=== PATIENT | male | born 1950 | race Caucasian/White ===

== ENCOUNTER 2019-01-18 06:49 | Observation (INO) | payer OTHER, MEDICARE ==
[2019-01-18 07:27] LABS: Absolute Lymphocytes (CBC) 1.9 K/uL (0.7-4.9); Basophils % 0.6 % (0-1.3); Hematocrit 42.1 % (39.6-49.0); Lymphocytes % 20.7 % (15.3-44.8); MPV 8.5 fL (7.6-11.3); RBC Red Blood Cell Count 4.67 M/uL (4.33-5.43)
[2019-01-18 07:28] LABS: Protime INR 1.02
[2019-01-18 07:42] LABS: ALT/SGPT 22 U/L (12-78); AST/SGOT 13 U/L (15-37); Albumin 3.7 g/dL (3.4-5.0); Alkaline Phosphatase 59 U/L (45-117); BUN Blood Urea Nitrogen 25 mg/dL (7-18); Bicarbonate 26 mmol/L (21-32); Bilirubin Direct 0.2 mg/dL (0-0.2); Bilirubin Total 0.9 mg/dL (0.2-1.0); Glucose Level 243 mg/dL (74-106); Magnesium 1.7 mg/dL (1.8-2.4); NT PRO-BNP 89 pg/mL (<125); Potassium 3.2 mmol/L (3.5-5.1); Protein, Total 6.9 g/dL (6.4-8.2); Sodium Level 139 mmol/L (136-145); Troponin (Emerg Dept Use Only) < 0.02 ng/mL (0.0-0.045)
[2019-01-18] MEDS ORDERED: POTASSIUM CL SA 10 MEQ TAB PO ONE (08:00)
--- NOTE | 2019-01-18 08:03 | ER ---
Nurse's Notes [facility] Name: Isiah Lai Age: 68 yrs Sex: Male : 1950 Arrival Date: 01/18/2019 Time: 06:50 Bed 7 Private MD: Diagnosis: Chest pain, unspecified Presentation: 01/18 06:51 Presenting complaint: Patient states: midsternal CP since approx [id number] this am. aa1 Reports throbbing pain 06/11. Denies any other symptoms. Transition of care: patient was not received from another setting of care. Onset of symptoms was January 18, 2019. Risk Assessment: Do you want to hurt yourself or someone else? Patient reports no desire to harm self or others. Initial Sepsis Screen: Does the patient meet any 2 criteria? No. Patient's initial sepsis screen is negative. Does the patient have a suspected source of infection? No. Patient's initial sepsis screen is negative. Care prior to arrival: IV initiated. 18 GA, in the right antecubital area, Glucose check: 273. 06:51 Method Of Arrival: EMS: [facility] aa1 06:51 Acuity: DENISE 3 aa1 Triage Assessment: 06:54 General: Appears in no apparent distress. comfortable, Behavior is calm, cooperative, aa1 appropriate for age. Historical: - Allergies: 06:54 No Known Allergies; aa1 - PMHx: 06:54 Diabetes - NIDDM; CVA; Hypertension; Hypothyroidism; aa1 - PSHx: 06:54 skin cancer removed; aa1 - Immunization history:: Flu vaccine is up to date. - Social history:: Smoking status: Patient/guardian denies using tobacco. - Ebola Screening: : No symptoms or risks identified at this time. Screenin:19 Abuse screen: Denies threats or abuse. Denies injuries from another. Nutritional sg screening: No deficits noted. Tuberculosis screening: No symptoms or risk factors identified. Never had TB. Fall Risk None identified. Assessment: 07:19 Reassessment: Patient appears in no apparent distress at this time. Patient and/or sg family updated on plan of care and expected duration. Pain level reassessed. Patient is alert, oriented x 3, equal unlabored respirations, skin warm/dry/pink. 07:25 General: Appears in no apparent distress. well groomed, well developed, well nourished, sg Behavior is calm, cooperative, appropriate for age, quiet. Pain: Complains of pain in chest Quality of pain is described as aching. Neuro: Level of Consciousness is awake, alert, obeys commands, Oriented to person, place, time, situation, Animal Impersonator are equal bilaterally Moves all extremities. Full function Gait is steady, Speech is normal, Facial symmetry appears normal, Pupils are PERRLA. Cardiovascular: Patient's skin is warm and dry. Chest pain is described as mild, quality is pressure, is located in anterior chest wall. Respiratory: Airway is patent Respiratory effort is even, unlabored, Respiratory pattern is regular, symmetrical. GI: Abdomen is round non-distended, Reports tolerance of fluids, tolerance of food. : No signs and/or symptoms were reported regarding the genitourinary system. EENT: No signs and/or symptoms were reported regarding the EENT system. Derm: Skin is pink, warm \T\ dry. Musculoskeletal: Circulation, motion, and sensation intact. Range of motion: intact in all extremities, Swelling absent. 08:25 Reassessment: Patient appears in no apparent distress at this time. Patient and/or sg family updated on plan of care and expected duration. Pain level reassessed. Patient is alert, oriented x 3, equal unlabored respirations, skin warm/dry/pink. Patient denies pain at this time. 09:30 Reassessment: Patient appears in no apparent distress at this time. Patient and/or sg family updated on plan of care and expected duration. Pain level reassessed. Patient is alert, oriented x 3, equal unlabored respirations, skin warm/dry/pink. Patient denies pain at this time. Patient states feeling better. 10:29 Reassessment: Patient appears in no apparent distress at this time. pt HR noted to be sg 42 on the bedside monitor, pt denies any symptoms or pain at this time, Lavelle DEE notified, pt continues to wait for a bed for admission to hospital at this time, will continue to monitor. 10:29 Reassessment: Patient appears in no apparent distress at this time. Patient and/or sg family updated on plan of care and expected duration. Pain level reassessed. Patient is alert, oriented x 3, equal unlabored respirations, skin warm/dry/pink. Patient denies pain at this time. Patient states feeling better. Vital Signs: 06:54 BP 127 / 80; Pulse 68; Resp 18; Temp 97.5; Pulse Ox 98% on R/A; Weight 83.91 kg; Height aa1 6 ft. 2 in. (187.96 cm); Pain 2/10; 08:11 BP 121 / 77; Pulse 63; Resp 20; Pulse Ox 98% ; sv 09:06 BP 124 / 82; Pulse 61; Resp 17; Temp 97.6; Pulse Ox 99% on R/A; sg 12:21 BP 122 / 80; Pulse 60; Resp 16; Pulse Ox 100% on R/A; Pain 2/10; sg 06:54 Body Mass Index 23.75 (83.91 kg, 187.96 cm) aa1 ED Course: 06:50 Patient arrived in ED. ds1 06:53 Triage completed. aa1 06:54 Arm band placed on right wrist. aa1 06:58 Patient has correct armband on for positive identification. environmental monitoring technician on. Pulse lp1 ox on. NIBP on. 07:10 Jose Machado, RN is Primary Nurse. sg 07:20 No provider procedures requiring assistance completed. Initial lab(s) drawn, by me, sg sent to lab. Maintain EMS IV. Dressing intact. Good blood return noted. Site clean \T\ dry. Gauge \T\ site: 18 gauge. Patient maintains SpO2 saturation greater than 95% on room air. 07:23 Griffin Gomez PA is [facility]. jr8 07:23 Reza Scales MD is Attending Physician. jr8 07:27 XRAY Chest (1 view) In Process Unspecified. EDMS 08:01 Rubén Huynh MD is Hospitalizing Provider. jr8 Administered Medications: 08:02 Drug: Potassium Chloride 40 mEq Route: PO; sg 10:30 Follow up: Response: No adverse reaction sg Outcome: 08:02 Decision to Hospitalize by Provider. jr8 12:42 Patient left the ED. sv Signatures: Dispatcher [employer] EDMS Rhonda Mccormack RN RN Jose Machado RN RN sg Autenrieth, Alissa, RN RN aa Carolynn Grimm ds1 Annie Case RN RN [facility] Griffin Gomez PA PA jr8
--- NOTE | 2019-01-18 08:03 | EDPHYS ---
Physician Documentation [facility] Name: Isiah Lai Age: 68 yrs Sex: Male : 1950 Arrival Date: 01/18/2019 Time: 06:50 Bed 7 Private MD: ED Physician Reza Scales HPI: 01/18 07:43 This 68 yrs old Male presents to ER via EMS with complaints of Chest Pain. jr8 07:43 The patient or guardian reports chest pain that is located primarily in the substernal jr8 area. Onset: acutely, this morning, today. The pain does not radiate. Associated signs and symptoms: Pertinent positives: diaphoresis. The chest pain is described as sharp. Duration: The patient or guardian reports multiple episodes, that are intermittent. Modifying factors: The symptoms are alleviated by nothing. the symptoms are aggravated by nothing. Severity of pain: At its worst the pain was moderate in the emergency department the pain has improved moderately. The patient has not experienced similar symptoms in the past. The patient has not recently seen a physician. Historical: - Allergies: 06:54 No Known Allergies; aa1 - PMHx: 06:54 Diabetes - NIDDM; CVA; Hypertension; Hypothyroidism; aa1 - PSHx: 06:54 skin cancer removed; aa1 - Immunization history:: Flu vaccine is up to date. - Social history:: Smoking status: Patient/guardian denies using tobacco. - Ebola Screening: : No symptoms or risks identified at this time. ROS: 07:43 Eyes: Negative for injury, pain, redness, and discharge, ENT: Negative for injury, jr8 pain, and discharge, Neck: Negative for injury, pain, and swelling, Respiratory: Negative for shortness of breath, cough, wheezing, and pleuritic chest pain, Abdomen/GI: Negative for abdominal pain, nausea, vomiting, diarrhea, and constipation, Back: Negative for injury and pain, MS/Extremity: Negative for injury and deformity, Skin: Negative for injury, rash, and discoloration, Neuro: Negative for headache, weakness, numbness, tingling, and seizure. 07:43 Cardiovascular: Positive for chest pain, Negative for edema, orthopnea, palpitations, paroxysmal nocturnal dyspnea. Exam: 07:43 Eyes: Pupils equal round and reactive to light, extra-ocular motions intact. Lids and jr8 lashes normal. Conjunctiva and sclera are non-icteric and not injected. Cornea within normal limits. Periorbital areas with no swelling, redness, or edema. ENT: Nares patent. No nasal discharge, no septal abnormalities noted. Tympanic membranes are normal and external auditory canals are clear. Oropharynx with no redness, swelling, or masses, exudates, or evidence of obstruction, uvula midline. Mucous membranes moist. Neck: Trachea midline, no thyromegaly or masses palpated, and no cervical lymphadenopathy. Supple, full range of motion without nuchal rigidity, or vertebral point tenderness. No Meningismus. Chest/axilla: Normal chest wall appearance and motion. Nontender with no deformity. No lesions are appreciated. Cardiovascular: Regular rate and rhythm with a normal S1 and S2. No gallops, murmurs, or rubs. Normal PMI, no JVD. No pulse deficits. Respiratory: Lungs have equal breath sounds bilaterally, clear to auscultation and percussion. No rales, rhonchi or wheezes noted. No increased work of breathing, no retractions or nasal flaring. Abdomen/GI: Soft, non-tender, with normal bowel sounds. No distension or tympany. No guarding or rebound. No evidence of tenderness throughout. Back: No spinal tenderness. No costovertebral tenderness. Full range of motion. Skin: Warm, dry with normal turgor. Normal color with no rashes, no lesions, and no evidence of cellulitis. MS/ Extremity: Pulses equal, no cyanosis. Neurovascular intact. Full, normal range of motion. Neuro: Awake and alert, GCS 15, oriented to person, place, time, and situation. Cranial nerves II-XII grossly intact. Motor strength 5/5 in all extremities. Sensory grossly intact. Cerebellar exam normal. Normal gait. 07:58 ECG was reviewed by the Attending Physician. [facility] Vital Signs: 06:54 BP 127 / 80; Pulse 68; Resp 18; Temp 97.5; Pulse Ox 98% on R/A; Weight 83.91 kg; Height aa1 6 ft. 2 in. (187.96 cm); Pain 2/10; 08:11 BP 121 / 77; Pulse 63; Resp 20; Pulse Ox 98% ; sv 09:06 BP 124 / 82; Pulse 61; Resp 17; Temp 97.6; Pulse Ox 99% on R/A; sg 12:21 BP 122 / 80; Pulse 60; Resp 16; Pulse Ox 100% on R/A; Pain 2/10; sg 06:54 Body Mass Index 23.75 (83.91 kg, 187.96 cm) aa1 MDM: 07:23 Patient medically screened. jr8 07:58 The patient was not given aspirin in the Emergency Department. Patient reports taking jr8 aspirin within the past 24 hours. Data reviewed: vital signs, nurses notes, lab test result(s), EKG, radiologic studies, plain films. Data interpreted: Pulse oximetry: on room air is 98 %. Interpretation: normal. Counseling: I had a detailed discussion with the patient and/or guardian regarding: the historical points, exam findings, and any diagnostic results supporting the discharge/admit diagnosis, lab results, radiology results, the need for further work-up and treatment in the hospital. 01/18 07:03 Order name: Basic Metabolic Panel; Complete Time: 07:44 lp01/18 07:03 Order name: CBC with Diff; Complete Time: 07:55 lp01/18 07:03 Order name: LFT's; Complete Time: 07:44 01/18 07:03 Order name: Magnesium; Complete Time: 07:44 01/18 07:03 Order name: NT PRO-BNP; Complete Time: 07:44 01/18 07:03 Order name: PT-INR; Complete Time: 07:55 01/18 07:03 Order name: Troponin (emerg Dept Use Only); Complete Time: 07:44 lp01/18 07:03 Order name: XRAY Chest (1 view); Complete Time: 08:31 lp01/18 07:03 Order name: EKG; Complete Time: 07:04 lp01/18 07:03 Order name: Cardiac monitoring; Complete Time: 07:19 01/18 07:03 Order name: EKG - Nurse/Tech; Complete Time: 07:19 01/18 07:03 Order name: IV Saline Lock; Complete Time: 07:19 lp01/18 07:03 Order name: Labs collected and sent; Complete Time: 07:19 01/18 07:03 Order name: O2 Per Protocol; Complete Time: 07:19 01/18 07:03 Order name: O2 Sat Monitoring; Complete Time: : lp1 EC:58 Rate is 66 beats/min. Rhythm is regular, Normal Sinus Rhythm. QRS [place] is Normal. [place] jr8 interval is normal at 182 msec. QRS interval is normal at 98 msec. QT interval is normal at 427 msec. Q waves are Present in leads II, III, aVF, V1, V2, V3. T waves are Normal. No ST changes noted. Clinical impression: NSR w/ Non-specific ST/T Changes and No evidence of ischemia. Interpreted by me. Reviewed by me. Administered Medications: 08:02 Drug: Potassium Chloride 40 mEq Route: PO; sg 10:30 Follow up: Response: No adverse reaction sg Disposition: 01/18/19 08:02 Hospitalization ordered by Rubén Huynh for Observation. Preliminary diagnosis is Chest pain, unspecified. - Bed requested for Telemetry/MedSurg (observation). - Status is Observation. sv - Condition is Stable. - Problem is new. - Symptoms have improved. UTI on Admission? No Signatures: Dispatcher [employer] EDMS Melissa Cabral Stephanie, RN RN sv Jose Machado RN RN sg Karo Winn RN RN aa1 Annie Case RN RN lp1 Griffin Gomez PA PA jr8 Corrections: (The following items were deleted from the chart) 10:50 08:02 Hospitalization Ordered by Rubén Huynh MD for Observation. Preliminary diagnosis bd is Chest pain, unspecified. Bed requested for Telemetry/MedSurg (observation). Status is Observation. Condition is Stable. Problem is new. Symptoms have improved. UTI on Admission? No. jr8 10:56 10:50 01/18/2019 08:02 Hospitalization Ordered by Rubén Huynh MD for Observation. bd Preliminary diagnosis is Chest pain, unspecified. Bed requested for Telemetry/MedSurg (observation). Status is Observation. Condition is Stable. Problem is new. Symptoms have improved. UTI on Admission? No. bd 12:42 10:56 01/18/2019 08:02 Hospitalization Ordered by Rubén Huynh MD for Observation. sv Preliminary diagnosis is Chest pain, unspecified. Bed requested for Telemetry/MedSurg (observation). Status is Observation. Condition is Stable. Problem is new. Symptoms have improved. UTI on Admission? No. bd
--- NOTE | 2019-01-18 08:18 | RAD REPORT ---
EXAM DESCRIPTION: RAD - Chest Single View - 01/18/2019 7:26 am CLINICAL HISTORY: CHEST PAIN Chest pain. COMPARISON: No comparisons FINDINGS: Portable technique limits examination quality. The lungs are grossly clear. The heart is normal in size. No displaced fractures. IMPRESSION: No acute intrathoracic process suspected.
[2019-01-18] MEDS: INSULIN -REGULAR HUMAN 50 UNIT/0.5 ML ML SQ SCH ×3 (12:31→21:04)
[2019-01-18] MEDS ORDERED: METOPROLOL TAR 25 MG TAB PO SCH (12:31)
[2019-01-18] MEDS ORDERED: MORPHINE 2 MG/ML SYR IV PRN (12:31)
[2019-01-18] MEDS ORDERED: ACETAMINOPHEN 500 MG TAB PO PRN (12:31)
[2019-01-18] MEDS ORDERED: GLUCAGON 1 MG/VIAL IM PRN (12:31)
[2019-01-18] MEDS ORDERED: D50W 25 GM/50 ML SYRINGE IV PRN (12:31)
[2019-01-18] MEDS ORDERED: NITROGLYCERIN 0.4 MG/TAB SL PRN (12:31)
[2019-01-18 13:05] VITALS: BMI 23.6
[2019-01-18] MEDS: ASPIRIN EC 81 MG TAB PO SCH (13:24)
[2019-01-18] MEDS: ENOXAPARIN 40 MG/0.4 ML SQ SCH (13:25)
[2019-01-18] MEDS: LISINOPRIL 10 MG TAB PO SCH (13:25)
[2019-01-18 15:03] VITALS: O2SAT 98
[2019-01-18] MEDS ORDERED: HOME MED 1 EA UNK (Simvastatin [Simvastatin] 10 MG) PO SCH (21:00)
[2019-01-18] MEDS ORDERED: HOME MED 1 EA UNK (Metoprolol Tartrate [Lopressor] 100 MG) PO SCH (21:00)
[2019-01-18] MEDS ORDERED: ATORVASTATIN 10 MG TAB PO SCH (21:00)
[2019-01-18] MEDS: METOPROLOL TAR 50 MG TAB PO SCH (21:03)
--- NOTE | 2019-01-18 21:58 | HP ---
Date of Admission: 01/18/2019 Chief Complaint: Chest pain. [employer] Supervisor: Dr. Mcdaniel, Cardiology. Code Status: Full. History Of Present Illness: Patient is a 68-year-old male with past medical history of diabetes, hyp ertension, history of CVA recently with no residual weakness, who was in his usual state of health un til the night prior to admission when the patient had sudden onset of chest pain which was substernal , moderate intensity, constant, nonradiating, associated with nausea and some diaphoresis, but no vom iting or shortness of breath. No palpitations. Patient did take 2 aspirins, which helped alleviate his pain. The pain lasted approximately 3-4 hours and was initiated without any exertion. Patient w as brought in to the ER for further evaluation. His daughter is a nurse and recommended that he go t o the ER. In the ER his initial workup has been negative. Creatinine level was elevated at 1.57, wh ich seems to be about his baseline and had a low potassium level. Chest x-ray was clear. Patient wa s then referred for admission. When seen in the ER, he was awake, alert, oriented x3, in some mild d istress. Past Medical History: Hypertension, diabetes mellitus type 2, history of recent CVA without residual deficits, hypothyroidism. Surgical History: Cataract surgery, skin cancer removal. Allergies: NO KNOWN DRUG ALLERGIES. Medications: List reviewed. Social History: Patient denies any tobacco use, alcohol use, or illicit drug use. The patient is ma rried, has a daughter, currently living alone, but does have help. is about to move back from [facility]. Family History: Father of heart disease in his 80s. Review of Systems: 10-point system reviewed, negative except as per HPI. Physical Examination: Vital Signs: Blood pressure 127/80, pulse 68, respirations 18, temperature 97.5, O2 98% on room air. General: Awake, alert, oriented x3. Some mild distress. Elderly male, slightly ill-appearing. HEENT: Normocephalic, atraumatic. PERRLA, EOMI. Moist mucous membranes. Oropharynx is clear. Con junctivae anicteric. Neck: Supple. No JVD. Trachea midline. CV: S1, S2. Regular rate and rhythm. Peripheral pulses present. Respiratory: Moving air well bilaterally. No wheezing or stridor. No use of accessory muscles. Gastrointestinal: Abdomen is soft, nontender, nondistended. Positive bowel sounds. No guarding or rigidity. No calf tenderness. Neuro: Cranial nerves 2 through 12 intact grossly. No focal neurological deficits. Speech is precious l. No facial asymmetry. Skin: No rashes. Normal skin turgor. Psych: Mood is okay. Affect is full. Insight and judgment are good. Laboratory Data: INR 1.02. Sodium 139, potassium 3.2, chloride 102, CO2 26, BUN 25, creatinine 1.57 , glucose 243, calcium 8.8, magnesium 1.7. Troponin 0.02. WBC 9.2, H and H 14.4 and 42.1, platelets 191, neutrophils 71%. Imaging Studies: Chest x-ray shows no acute intrathoracic process. Assessment: A 68-year-old male with; 1.Chest pain. We will rule out ACS. We will admit patient on chest pain guidelines, aspirin, stati n, beta-dennis, STACEY inhibitor. We will obtain serial cardiac enzymes and EKG. Consult Cardiology. Patient has a recent echocardiogram from August, EF of 78% with normal bubble study. We will consult C ardiology. 2.Hypokalemia. We will replace and monitor. 3.Diabetes mellitus type 2 [id number] with hyperglycemia. We will start on sliding scale insulin. Check hemoglobin A1c. 4.Essential hypertension. We will resume home medications as appropriate. 5.Hypothyroidism. Continue levothyroxine. Check TSH. 6.History of cerebrovascular accident with no residual deficit, stable. Plan: Admit the patient to [facility] as observation. CONCETTA Voice ID: [id number]
[2019-01-19] MEDS ORDERED: LEVOTHYROXINE SOD 0.05 MG TABLET PO SCH (06:00)
[2019-01-19 06:20] LABS: Absolute Lymphocytes (CBC) 2.6 K/uL (0.7-4.9); Basophils % 0.9 % (0-1.3); Hematocrit 39.3 % (39.6-49.0); Lymphocytes % 40.6 % (15.3-44.8); MPV 8.5 fL (7.6-11.3); RBC Red Blood Cell Count 4.37 M/uL (4.33-5.43)
[2019-01-19 06:34] LABS: Potassium 3.1 mmol/L (3.5-5.1)
[2019-01-19] MEDS: INSULIN -REGULAR HUMAN 50 UNIT/0.5 ML ML SQ SCH (07:30)
[2019-01-19 08:39] VITALS: BP 193/87; TEMP 97.7
[2019-01-19] MEDS ORDERED: DONEPEZIL HCL 5 MG TAB PO SCH (09:00)
[2019-01-19] MEDS ORDERED: hydroCHLOROthiazide 12.5 MG CAP PO SCH (09:00)
[2019-01-19] MEDS: ENOXAPARIN 40 MG/0.4 ML SQ SCH (09:00)
[2019-01-19] MEDS ORDERED: TAMSULOSIN 0.4 MG SR CAP PO SCH (09:00)
[2019-01-19] MEDS: METOPROLOL TAR 50 MG TAB PO SCH (09:01)
[2019-01-19] MEDS: LISINOPRIL 10 MG TAB PO SCH (09:02)
[2019-01-19] MEDS: ASPIRIN EC 81 MG TAB PO SCH (09:02)
--- NOTE | 2019-01-19 10:36 | EKG ---
Test Date: 2019-01-18 Test Time: 07:02:26 Cushion Cover Inspector: VINH MEASUREMENT RESULTS: Intervals: Rate: 66 OH: 182 QRSD: 98 QT: 408 QTc: 427 Mabel: P: 45 OH: 182 QRS: 12 T: 46 INTERPRETIVE STATEMENTS: Normal sinus rhythm Inferior infarct, age undetermined Anteroseptal infarct, age undetermined Abnormal ECG No previous ECG available for comparison Electronically Signed On 01-19-19 10:32:01 CDT by Turner Mcdaniel
--- NOTE | 2019-01-19 12:35 | CON ---
Date of Consultation: 01/19/[address] Huynh's service on 01/18/2019. I saw the patient on 01/19/2019. Reason For Consultation: Chest pain. History Of Present Illness: Mr. Lai is 68. No previous cardiac history. Has a history of diabet es, dyslipidemia, hypertension, dementia, benign prostatic hypertrophy, and CVA. He normally sees Dr Rylee Nunez as an outpatient. He came in with sharp, stabbing chest pain over the left anterior wall, ra diating to the back without any nausea, vomiting, diaphoresis, shortness of breath, PND, orthopnea, p edal edema, palpitations, or syncope. He has already ruled out for an SD. His creatinine was 1.57. His glucose was 269. Chest x-ray was normal. EKG was normal. He had an echocardiogram in August that was normal. Past Medical History: As stated above. Allergies: NONE. Review of Systems: Negative. Social History: Negative. Family History: Noncontributory. Medications: At home include Zocor, potassium, Flomax, hydrochlorothiazide, lisinopril, nifedipine, Synthroid, Aricept, and Invokana. Physical Examination: General: He was pleasant, no acute distress, wanted to go home. Vital Signs: Stable. Afebrile. HEENT: Negative. Neck: Supple with no bruit. Chest: Clear to auscultation and percussion. Cardiac: Regular rhythm and rate. No murmurs, gallops, or rubs. Abdomen: Benign. Extremities: No clubbing, cyanosis, or edema. Neurologic: He is intact. His residuals from the CVA have resolved. Pulses are present in dorsalis pedis and posterior tibial bilaterally. Skin: Dry and intact. Impression And Plan: Atypical chest pain in a patient with many risk factors for heart disease inclu ding diabetes, dyslipidemia, hypertension, and history of a stroke. He has had a normal echocardiogr am in August of 2018. His EKG is normal. Troponin is normal. I suggest we do an outpatient stress best t on him, but he can go home. His other problems include history of cerebrovascular accident, zo ia, and benign prostatic hypertrophy and they are stable. He also have chronic renal insufficiency, stage 3. We will keep an eye on that for now. NB/MODL Voice ID: [id number] Report ID: [id number]
--- NOTE | 2019-01-20 11:27 | DS ---
Date of Discharge: 01/19/2019 Design Lead: Dr. Mcdaniel with Cardiology. Procedures: None. Admitting Diagnoses: 1.Chest pain, acute coronary syndrome ruled out. 2.Hypokalemia, corrected. 3.Diabetes mellitus type 2 with hyperglycemia, stable. 4.Dyslipidemia. Continue statin. 5.Essential hypertension, stable. 6.History of cerebrovascular accident. We will add aspirin. 7.Benign prostatic hypertrophy, stable. 8.Dementia. Patient is on Namenda. Hospital Course: Patient is a 68-year-old male, comes in with chest pain. Patient was admitted to [facility] to rule out ACS. Cardiac enzymes were negative. Patient did have some elevated creatini ne level, which improved with IV fluid hydration. This is chronic for the patient. His potassium wa s replaced. Lipid panel was obtained, which showed HDL of 35. Patient was seen by Cardiology, Dr. Bina white. Patient had a recent echocardiogram with normal EF, therefore, was not repeated. Recommende d outpatient stress test. Patient's symptoms resolved. He was then cleared for discharge and was se nt home in a stable condition. Activity: As tolerated. Medications: As per medication reconciliation list. We will add aspirin to his daily regimen due to history of CVA. Followup: Follow up with primary care physician in 2-3 days. Follow up with breakfast supervisor, Dr. Neena huntley, in 2 weeks. Return to ER for worsening condition. Diet: Heart healthy. Physical Examination: General: Awake, alert, oriented x3, not in any acute distress. Elderly male. CV: S1, S2. No murmurs. Respiratory: Moving air well bilaterally. Abdomen: Soft, nontender, nondistended. Positive bowel sounds. Extremities: No clubbing, cyanosis, or edema. Neurologic: Nonfocal. SA/MODL Voice ID: [id number] Report ID: [id number]
== END 2019-01-19 10:15 | disposition home or self-care (01) ==
LOC: ER 06:49 → ERHOLD 08:24 → 4TH 12:26
PROVIDERS: ADMIT Family Medicine; ATTEND Family Medicine
DX: R07.89 Other chest pain (principal); E87.6 Hypokalemia; I10 Essential (primary) hypertension; E03.9 Hypothyroidism, unspecified; E11.65 Type 2 diabetes mellitus with hyperglycemia; E78.5 Hyperlipidemia, unspecified; N40.0 Benign prostatic hyperplasia without lower urinary tract symptoms; F03.90 Unspecified dementia, unspecified severity, without behavioral disturbance, psychotic disturbance, mood disturbance, and anxiety; Z86.73 Personal history of transient ischemic attack (TIA), and cerebral infarction without residual deficits
CPT/HCPCS: 36415; 71045; 80048; 80061; 80076; 82962; 83735; 83880; 84132; 84484; 85025; 85610; 93005; 94760; 99285; J1650

== ENCOUNTER 2022-08-25 16:56 | Observation (INO) | payer OTHER, MEDICARE ==
--- OUTSIDE RECORDS SUMMARY | 2022-08-25 17:00 | XMS REPORT | Continuity of Care Document ---
:1950 Author Organization [facility] [place] t Address [address] [place] [address] [place] [id number] Care Team Providers Name Role Phone TERE MONTEIRO Primary Care Physician Unavailable Soumya Bourne Attending Clinician Unavailable JUSTA CHILDS Attending Clinician Unavailable JUSTA CHILDS Attending Clinician Unavailable Team, [facility] Maintenance Attending Clinician Unavailabl e Doctor Unassigned, [place] Attending Clinician Unavailable Donita Abraham Attending Clinician DONITA VAZQUEZ Attending Clinician Unavailable JARED ALFRED Attending Clinician Unavailable Jared Alfred MD Attending Clinician REJI OLIVEROS Attending Clinician Unavailable 2, [facility] Attending Clinician Unavailable Reji Oliveros MD Attending Clinician Payers Payer Name Policy Type Policy Number Effective Date Expiration Date S ource Problems Condition Condition Condition Status Onset Resolution Last Treating Co mments Source Name Details Category Date Date Treatment Clinician Date No known No known Disease Unive rs active active ity of problems problems [facility] Allergies, Adverse Reactions, Alerts Allergy Allergy Status Severity Reaction(s) Onset Inactive Treating Comm ents Source Name Type Date Date Clinician NO KNOWN Drug Active Univers ALLERGIE Class ity of S [facility] Social History Social Habit Start Date Stop Date Quantity Comments Source Exposure to 2022-02-23 2022-03-05 Not sure [facility]-CoV-2 00:00:00 13:02:00 [facility] (event) [place] Alcohol intake 2021-03-23 2021-03-23 Ex-drinker [facility] 00:00:00 00:00:00 (finding) [facility] Tobacco use and 2020-10-03 2020-10-03 Smokeless tobacco Un iversity of exposure 00:00:00 00:00:00 non-user [facility] Sex Ass[birth year] At [birth year] Universit y of 00:00:00 00:00:00 [facility] Smoking Status Start Date Stop Date Source Never smoked tobacco [facility] Medications Ordered Filled Start Stop Current Ordering Indication Dosage Frequency Signature Comments Components Source Medication Medication Date Date Medication? Clinician (SIG) Name Name canaglifloz 2021-05 Yes [id number] 300mg Take 1 Univers in 1-09 tablet by ity of (INV[place]) 00:00: mouth in [place] 300 mg 00 the Medical tablet morning. Branch levothyroxi 2021-05 Yes [id number] 75ug Take 1 Univers ne 75 mcg 1-09 tablet by ity o f tablet 00:00: mouth [place] 00 every Medical morning. Branch metformin 2021-05 Yes [id number] 500mg Take 1 U nivers ER 500 mg 1-09 tablet by ity o f 24 hr 00:00: mouth in [place] tablet 00 the Medical morning Branch and 1 tablet in the evening. canaglifloz 2021-05 Yes [id number] 300mg Take 1 Univers in 1-09 tablet by ity of (INVOKANA) 00:00: mouth in [place] 300 mg 00 the Medical tablet morning. Branch levothyroxi 2021-05 Yes [id number] 75ug Take 1 Univers ne 75 mcg 1-09 tablet by ity o f tablet 00:00: mouth [place] 00 every Medical morning. Branch metformin 2021-05 Yes [id number] 500mg Take 1 U nivers ER 500 mg 1-09 tablet by ity o f 24 hr 00:00: mouth in [place] tablet 00 the Medical morning Branch and 1 tablet in the evening. canaglifloz 2021-05 Yes [id number] 300mg Take 1 Univers in 1-09 tablet by ity of (INVOKANA) 00:00: mouth in [place] 300 mg 00 the Medical tablet morning. Branch levothyroxi 2021-05 Yes [id number] 75ug Take 1 Univers ne 75 mcg 1-09 tablet by ity o f tablet 00:00: mouth [place] 00 every Medical morning. Branch metformin 2021-05 Yes [id number] 500mg Take 1 U nivers ER 500 mg 1-09 tablet by ity o f 24 hr 00:00: mouth in [place] tablet 00 the Medical morning Branch and 1 tablet in the evening. canaglifloz 2021-05 Yes [id number] 300mg Take 1 Univers in 1-09 tablet by ity of (INVOKANA) 00:00: mouth in [place] 300 mg 00 the Medical tablet morning. Branch levothyroxi 2021-05 Yes [id number] 75ug Take 1 Univers ne 75 mcg -09 tablet by ity o f tablet 00:00: mouth [place] 00 every Medical morning. Branch metformin 2021-05 Yes [id number] 500mg Take 1 U nivers ER 500 mg -09 tablet by ity o f 24 hr 00:00: mouth in [place] tablet 00 the Medical morning Branch and 1 tablet in the evening. dulaglutide 2021-05 No 1.5mg inject 1.5 Univers (TRULICITY) 1-04 11-04 mg under ity of 1.5 mg/0.5 13:42: 00:00 [place] mL PnIj 31 :00 weekly. Medical Branch dulaglutide 2021-05 No 1.5mg inject 1.5 Univers (TRULICITY) 1-04 11-04 mg under ity of 1.5 mg/0.5 13:42: 00:00 [place] mL PnIj 31 :00 weekly. Medical Branch canaglifloz 2021-05 Yes [id number] 300mg Take 1 Univers in - tablet by ity of (INVOKANA) 00:00: mouth in [place] 300 mg 00 the Medical tablet morning. Branch dulaglutide 2021-05 Yes [id number] Inject 1.5 Univers (TRULICITY) 1-04 mg weekly ity of 1.5 mg/0.5 00:00: [place] mL PnIj 00 Medical Branch levothyroxi 2021-05 Yes [id number] 75ug Take 1 Univers ne 75 mcg 1-04 tablet by ity o f tablet 00:00: mouth [place] 00 every Medical morning. Branch metformin 2021-05 Yes [id number] 500mg Take 1 U nivers ER 500 mg 1-04 tablet by ity o f 24 hr 00:00: mouth in [place] tablet 00 the Medical morning Branch and 1 tablet in the evening. canaglifloz 2021-05 Yes [id number] 300mg Take 1 Univers in 1-04 tablet by ity of (INVOKANA) 00:00: mouth in [place] 300 mg 00 the Medical tablet morning. Branch dulaglutide 2021-05 Yes [id number] Inject 1.5 Univers (TRULICITY) 1-04 mg weekly ity of 1.5 mg/0.5 00:00: [place] mL PnIj 00 [facility] Branch levothyroxi 2021-05 Yes [id number] 75ug Take 1 Univers ne 75 mcg 05-05 tablet by ity o f tablet 00:00: mouth [place] 00 every Medical morning. Branch metformin 2021-05 Yes [id number] 500mg Take 1 U nivers ER 500 mg - tablet by ity o f 24 hr 00:00: mouth in [place] tablet 00 the Medical morning Branch and 1 tablet in the evening. dulaglutide 2021-05 Yes [id number] Inject 1.5 Univers (TRULICITY) 1-04 mg weekly ity of 1.5 mg/0.5 00:00: [place] mL PnIj 00 [facility] dulaglutide 2021-05 Yes [id number] Inject 1.5 Univers (TRULICITY) 1-04 mg weekly ity of 1.5 mg/0.5 00:00: [place] mL PnIj 00 [facility] dulaglutide 2021-05 Yes [id number] Inject 1.5 Univers (TRULICITY) 1-04 mg weekly ity of 1.5 mg/0.5 00:00: [place] mL PnIj 00 [facility] dulaglutide 2021-05 Yes [id number] Inject 1.5 Univers (TRULICITY) 1-04 mg weekly ity of 1.5 mg/0.5 00:00: [place] mL PnIj 00 [facility] canaglifloz 2021-05- No [id number] 300mg Take 1 Univers in 05-05 tablet by ity of (INVOKANA) 00:00: 00:00 mouth [place] 300 mg 00 :00 the Medical tablet morning. Branch levothyroxi 2021-05- No [id number] 75ug Take 1 Univers ne 75 mcg 05-05 tablet by ity of tablet 00:00: 00:00 mouth [place] 00 :00 every Medical morning. Branch metformin 2021-05- No [id number] 500mg Take 1 Univers ER 500 mg 05-05 tablet by ity of 24 hr 00:00: 00:00 mouth in [place] tablet 00 :00 the Medical morning Branch and 1 tablet in the evening. potassium 2021- No 10meq Take 10 Uni vers chloride 10 6-08 06-08 mEq by ity o f mEq CR 19:29: 00:00 mouth [place] tablet 21 :00 daily. Medical Branch potassium 2021- No 10meq Take 10 Uni vers chloride 10 6-08 06-08 mEq by ity o f mEq CR 19:29: 00:00 mouth [place] tablet 21 :00 daily. Medical Branch METFORMIN Yes [id number] TAKE 1 U nivers ER 500 mg 3-01 TABLET BY ity o f 24 hr 00:00: MOUTH [place] tablet 00 TWICE Medical DAILY Branch METFORMIN Yes [id number] TAKE 1 U nivers ER 500 mg 3-01 TABLET BY ity o f 24 hr 00:00: MOUTH [place] tablet 00 TWICE Medical DAILY Branch METFORMIN Yes [id number] TAKE 1 U nivers ER 500 mg 3-01 TABLET BY ity o f 24 hr 00:00: MOUTH [place] tablet 00 TWICE Medical DAILY Branch METFORMIN 2021-0 2021- No [id number] TAKE 1 Univers ER 500 mg 3-05 12- TABLET BY ity of 24 hr 00:00: 00:00 MOUTH [place] tablet 00 :00 TWICE Medical DAILY Branch METFORMIN 2021-0 2021- No [id number] TAKE 1 Univers ER 500 mg 3-05 12- TABLET BY ity of 24 hr 00:00: 00:00 MOUTH [place] tablet 00 :00 TWICE Medical DAILY Branch aspirin 81 2020-05 Yes 81mg Take 81 mg U nivers mg chewable 1-22 by mouth ity of tablet 11:44: daily. [place] 40 Medical Branch dulaglutide 2020-05 Yes 1.5mg inject 1.5 Univers (TRULICITY) 1-22 mg under ity of 1.5 mg/0.5 11:44: the skin [place] mL PnIj 40 weekly. Medical Branch carvediloL 2020-05 Yes 6.25mg Take 6.25 Univers (COREG) 1-22 mg by ity of 6.25 mg 11:44: mouth 2 [place] tablet 40 (two) Medical times Branch daily with meals. donepeziL 2020-05 Yes 10mg Take 10 mg Un nupur 10 mg 1-22 by mouth ity of tablet 11:44: at [place] [address] bedtime. Medical Branch tamsulosin 2020-05 Yes Take by Univ ers 0.4 mg 24 1-22 mouth ity of hr capsule 11:44: daily. [address] aspirin 81 2020-05 Yes 81mg Take 81 mg U nivers mg chewable 1-22 by mouth ity of tablet 11:44: daily. [place] [address] Medical Branch dulaglutide 2020-05 Yes 1.5mg inject 1.5 Univers (TRULICITY) 1-22 mg under ity of 1.5 mg/0.5 11:44: the skin [place] mL PnIj 40 weekly. Medical Branch carvediloL 2020-05 Yes 6.25mg Take 6.25 Univers (COREG) 1-22 mg by ity of 6.25 mg 11:44: mouth 2 [place] tablet 40 (two) Medical times [place] daily with meals. donepeziL 2020-05 Yes 10mg Take 10 mg Un nupur 10 mg 1-22 by mouth ity of tablet 11:44: at [place] [address] bedtime. Medical Branch tamsulosin 2020-05 Yes Take by [facility] ers 0.4 mg 24 1-22 mouth ity of hr capsule 11:44: daily. [address] aspirin 81 2020-05 Yes 81mg Take 81 mg U nivers mg chewable 1-22 by mouth ity of tablet 11:44: daily. [address] dulaglutide 2020-05 Yes 1.5mg inject 1.5 Univers (TRULICITY) 1-22 mg under ity of 1.5 mg/0.5 11:44: the skin [place] mL PnIj 40 weekly. Medical Branch carvediloL 2020-05 Yes 6.25mg Take 6.25 Univers (COREG) 1-22 mg by ity of 6.25 mg 11:44: mouth 2 [place] tablet 40 (two) Medical times [place] daily with meals. donepeziL 2020-05 Yes 10mg Take 10 mg Un nupur 10 mg 1-22 by mouth ity of tablet 11:44: at [place] [address] bedtime. Medical Branch tamsulosin 2020-05 Yes Take by Univ ers 0.4 mg 24 1-22 mouth ity of hr capsule 11:44: daily. [address] aspirin 81 2020-05 Yes 81mg Take 81 mg U nivers mg chewable 1-22 by mouth ity of tablet 11:44: daily. [address] Branch carvediloL 2020-05 Yes 6.25mg Take 6.25 Univers (COREG) 1-22 mg by ity of 6.25 mg 11:44: mouth 2 [place] tablet 40 (two) Medical times [place] daily with meals. donepeziL 2020-05 Yes 10mg Take 10 mg Un nupur 10 mg 1-22 by mouth ity of tablet 11:44: at [place] [address] bedtime. Medical Branch tamsulosin 2020-05 Yes Take by Univ ers 0.4 mg 24 1-22 mouth ity of hr capsule 11:44: daily. [address] aspirin 81 2020-05 Yes 81mg Take 81 mg U nivers mg chewable 1-22 by mouth ity of tablet 11:44: daily. [address] carvediloL 2020-05 Yes 6.25mg Take 6.25 Univers (COREG) 1-22 mg by ity of 6.25 mg 11:44: mouth 2 [place] tablet 40 (two) Medical times [place] daily with meals. donepeziL 2020-05 Yes 10mg Take 10 mg Un nupur 10 mg 1-22 by mouth ity of tablet 11:44: at [place] [address] bedtime. Medical Branch tamsulosin 2020-05 Yes Take by Univ ers 0.4 mg 24 1-22 mouth ity of hr capsule 11:44: daily. [address] aspirin 81 2020-05 Yes 81mg Take 81 mg U nivers mg chewable 1-22 by mouth ity of tablet 11:44: daily. [address] Branch carvediloL 2020-05 Yes 6.25mg Take 6.25 Univers (COREG) 1-22 mg by ity of 6.25 mg 11:44: mouth 2 [place] tablet 40 (two) Medical times [place] daily with meals. donepeziL 2020-05 Yes 10mg Take 10 mg Un nupur 10 mg 1-22 by mouth ity of tablet 11:44: at [place] [address] bedtime. Medical Branch tamsulosin 2020-05 Yes Take by Univ ers 0.4 mg 24 1-22 mouth ity of hr capsule 11:44: daily. [address] aspirin 81 2020-05 Yes 81mg Take 81 mg U nivers mg chewable 1-22 by mouth ity of tablet 11:44: daily. [address] Branch carvediloL 2020-05 Yes 6.25mg Take 6.25 Univers (COREG) 1-22 mg by ity of 6.25 mg 11:44: mouth 2 [place] tablet 40 (two) Medical times [place] daily with meals. donepeziL 2020-05 Yes 10mg Take 10 mg Un nupur 10 mg 1-22 by mouth ity of tablet 11:44: at [place] [address] bedtime. Medical Branch tamsulosin 2020-05 Yes Take by Univ ers 0.4 mg 24 1-22 mouth ity of hr capsule 11:44: daily. [address] aspirin 81 2020-05 Yes 81mg Take 81 mg U nivers mg chewable 1-22 by mouth ity of tablet 11:44: daily. [address] carvediloL 2020-05 Yes 6.25mg Take 6.25 Univers (COREG) 1-22 mg by ity of 6.25 mg 11:44: mouth 2 [place] tablet 40 (two) Medical times [place] daily with meals. donepeziL 2020-05 Yes 10mg Take 10 mg Un nupur 10 mg 1-22 by mouth ity of tablet 11:44: at [place] [address] bedtime. Medical Branch tamsulosin 2020-05 Yes Take by Univ ers 0.4 mg 24 1-22 mouth ity of hr capsule 11:44: daily. [address] aspirin 81 2020-05 Yes 81mg Take 81 mg U nivers mg chewable 1-22 by mouth ity of tablet 11:44: daily. [address] Branch carvediloL 2020-05 Yes 6.25mg Take 6.25 Univers (COREG) 1-22 mg by ity of 6.25 mg 11:44: mouth 2 [place] tablet 40 (two) Medical times [place] daily with meals. donepeziL 2020-05 Yes 10mg Take 10 mg Un nupur 10 mg 1-22 by mouth ity of tablet 11:44: at [place] [address] bedtime. Medical Branch tamsulosin 2020-05 Yes Take by Univ ers 0.4 mg 24 1-22 mouth ity of hr capsule 11:44: daily. [address] Branch mirtazapine 2020-05- No 30mg Take 30 mg Univers 30 mg 05-13 by mouth ity of tablet 00:00: 00:00 at [place] 00 :00 bedtime. Medical Branch mirtazapine 2020-05- No 30mg Take 30 mg Univers 30 mg 05-13 by mouth ity of tablet 00:00: 00:00 at [place] 00 :00 bedtime. Medical Branch lisinopriL 2020-05 Yes Univers 20 mg 0-24 ity of tablet 00:00: [place] 00 Medical Branch lisinopriL 2020-05 Yes Univers 20 mg 0-24 ity of tablet 00:00: [place] 00 Medical Branch lisinopriL 2020-05 Yes Univers 20 mg 0-24 ity of tablet 00:00: [place] 00 [facility] Branch lisinopriL 2020-05 Yes Univers 20 mg 0-24 ity of tablet 00:00: [place] 00 [facility] Branch lisinopriL 2020-05 Yes Univers 20 mg 0-24 ity of tablet 00:00: [place] 00 [facility] Branch lisinopriL 2020-05 Yes Univers 20 mg 0-24 ity of tablet 00:00: [place] 00 [facility] Branch lisinopriL 2020-05 Yes Univers 20 mg 0-24 ity of tablet 00:00: [place] 00 [facility] Branch lisinopriL 2020-05 Yes Univers 20 mg 0-24 ity of tablet 00:00: [place] 00 [facility] Branch lisinopriL 2020-05 Yes Univers 20 mg 0-24 ity of tablet 00:00: [place] 00 [facility] Branch levothyroxi 2020-0 Yes [id number] 75ug Take 1 Univers ne 75 mcg 6-15 tablet by ity o f tablet 00:00: mouth [place] 00 every Medical morning. Branch levothyroxi 2020-0 Yes [id number] 75ug Take 1 Univers ne 75 mcg 6-15 tablet by ity o f tablet 00:00: mouth [place] [address] every Medical morning. Branch levothyroxi 2020-0 Yes [id number] 75ug Take 1 Univers ne 75 mcg 6-15 tablet by ity o f tablet 00:00: mouth [place] [address] every Medical morning. Branch levothyroxi 2021- No [id number] 75ug Take 1 Univers ne 75 mcg 6-15 - tablet by ity of tablet 00:00: 00:00 mouth [place] 00 :00 every Medical morning. Branch levothyroxi 2021- No [id number] 75ug Take 1 Univers ne 75 mcg 10-14 tablet by ity of tablet 00:00: 00:00 mouth [place] 00 :00 every Medical morning. Branch canaglifloz 2020-0 Yes 300mg Take 1 Uni vers in 10-03 tablet by ity of (INVOKANA) 00:00: mouth [place] 300 mg 00 daily. Medical tablet Branch canaglifloz 2020-0 Yes 300mg Take 1 Uni vers in 10-03 tablet by ity of (INVOKANA) 00:00: mouth [place] 300 mg 00 daily. Medical tablet Branch canaglifloz 2020-0 Yes 300mg Take 1 Uni vers in - tablet by ity of (INVOKANA) 00:00: mouth [place] 300 mg 00 daily. Medical tablet Branch canaglifloz 2021- No 300mg Take 1 Un nupur in 10-03 tablet by ity of (INVOKANA) 00:00: 00:00 mouth [place] 300 mg 00 :00 daily. Medical tablet Branch canaglifloz 2020-0 2- No 300mg Take 1 Un nupur in 10-03 tablet by ity of (INVOKANA) 00:00: 00:00 mouth [place] 300 mg 00 :00 daily. Medical tablet Branch NIFEdipine 2020-2021- No 60mg Take 1 Univ ers ER 60 mg 10-03 tablet by ity o f tablet 00:00: 00:00 mouth [place] 00 :00 daily. Medical Branch testosteron 2020-2021- No 100mg 0.5 mL by Univers e cypionate 10-03 Intramuscu i ty of 200 mg/mL 00:00: 00:00 [address] [place] injection 00 :00 weekly. Medical Branch NIFEdipine 2020-0 2- No 60mg Take 1 Univ ers ER 60 mg 10-03 tablet by ity o f tablet 00:00: 00:00 mouth [place] 00 :00 daily. Medical Branch testosteron 2020-2- No 100mg 0.5 mL by Univers e cypionate 10-03 Intramuscu i ty of 200 mg/mL 00:00: 00:00 [place] [address] [place] injection 00 :00 weekly. Medical Branch Vital Signs Vital Name Observation Time Observation Value Comments Source Systolic blood 2022-03-05 18:20:00 149 mm[Hg[facility] 2022-03-05 18:20:00 87 mm[Hg] Unive [facility] Heart rate 2022-03-05 18:09:00 64 /min [facility] Body weight 2022-03-05 18:09:00 69.174 kg [facility] BMI 2022-03-05 18:09:00 19.58 kg/m2 [facility] Oxygen saturation 2022-03-05 18:09:00 98 /min [facility] Medical Br anch by Pulse oximetry Systolic blood 2021-09-21 18:05:00 170 mm[Hg] [facility] Diastolic blood 2021-09-21 18:05:00 92 mm[Hg] Unive [facility] Heart rate 2021-09-21 17:56:00 52 /min [facility] Body weight 2021-09-21 17:56:00 72.031 kg [facility] BMI 2021-09-21 17:56:00 20.39 kg/m2 [facility] Oxygen saturation 2021-09-21 17:56:00 97 /min [facility] Arterial blood Medical Br anch by Pulse oximetry Procedures Procedure Date / Time Performed Performing Clinician [facility] e EXTERNAL PROVIDER 2022-03-18 06:01:00 Doctor Unassigned, No Univ [facility] POCT HEMOGLOBIN A1C 2022-03-05 18:22:00 Donita Vazquez [facility] ASSIGNMENT OF BENEFITS 2022-03-05 18:03:54 Doctor Unassigned, No [facility] POCT HEMOGLOBIN A1C 2021-09-21 18:06:00 Justa Childs [facility] EXTERNAL FIT DNA 2016-10-05 12:30:00 Doctor Unassigned, No Unive [facility] Encounters Start End Encounter Admission Attending Care Care Encounter Source Date/Time Date/Time Type Type Clinicians Facility Department ID 2022-07-[address] [facility] [id number] Common 07:28:01 [place]my[place] [id number] [facility] 2022-07-[address] [facility] [id number] Common 08:56:01 [place]my[place] [id number] [facility] 2022-08-13 2022-08-13 Telephone Team, [facility] JAMIE [id number] [id number] Univers 00:00:00 00:00:00 Health TERRI [id number] it y of [facility] [id number] [place] [phone] [facility] 082 Branch 2022-03-23 2022-03-23 Telephone Justa Childs [facility] [id number] Univers 00:00:00 00:00:00 MULTISPEC [id number] ity [facility] [id number] [id number] [facility] AND [place] 220 Branch DIAB[facility]ES [facility]IC 2022-03-18 2022-03-18 Orders Doctor JAMIE [id number] Univers 00:00:00 00:00:00 Only Unassigned, TERRI [id number] ity of [place] [facility] [id number] [place] [phone] [facility] 009 Branch 2022-03-10 2022-03-10 Telephone George [facility] [id number] Univers 00:00:00 00:00:00 [facility] [id number] it y of [place] [id number] [place] JENA?BLEA [phone] Az yosi LUCAS [address] [place] MEDICAL OFFICE BUILDING 2022-03-05 2022-03-05 Outpatient R GEORGE [facility] [id number] Univers 13:00:00 13:48:48 DONITA ity of [facility] 2022-03-05 2022-03-05 Office George [facility] [id number] Univers 13:00:00 13:48:48 Visit [facility] [id number] it y of [place] [id number] [place] JENA?BLEA [phone] [facility] [address] MEDICAL OFFICE BUILDING 2022-03-05 2022-03-05 Orders Doctor JAMIE [id number] Univers 00:00:00 00:00:00 Only Unassigned, TERRI [id number] ity of [place] [facility] [id number] [place] [phone] [address] 2021-09-21 2021-09-21 Outpatient R JUSTA CHILDS [facility] [id number] Univers 13:00:00 13:49:03 JUSTA CHILDS [facility] 2021-09-21 2021-09-21 Office Darline [facility] [id number] Univers 13:00:00 13:49:03 Visit HEALTH [id number] it y of [place] 4.2.7.2.686 [place] JENA?BLEA [phone] [address] MEDICAL OFFICE [facility] 2021-09-21 2021-09-21 Patient Darline, Marr [facility] [id number] Univers 00:00:00 00:00:00 Secure [facility] HEALTH [id number] ity of [place] [id number] [place] JENA?BLEA [phone] [address] MEDICAL OFFICE [facility] 2021-09-14 2021-09-14 Outpatient R JUSTA CHILDS [facility] [id number] Univers 13:30:00 13:30:00 JUSTA CHILDS [facility] 2021-09-07 2021-09-07 Outpatient R AUBRIE [facility] [id number] Univers 13:30:00 13:30:00 [facility] 2021-09-07 2021-09-07 Outpatient R AUBRIE [facility] [id number] Univers 13:30:00 13:30:00 [facility] 2021-09-062021-09-06 Telephone [facility] [id number] Univers 00:00:00 00:00:00 Jared HEALTH 350.1.13.10 it y of [place] 4.2.7.2.686 [place] JENA?BLEA [id number] [address] MEDICAL OFFICE BUILDING 2021-06-29 2021-06-29 Refill [facility] [id number] Univers 00:00:00 00:00:00 Donita [place] 350.1.13.10 i ty of [facility] 4.2.7.2.686 [place] PROFESS[place] [id number] [address] 2021-03-23 2021-03-23 Office [facility] [id number] Univers 11:32:00 12:17:56 Visit [facility] [id number] it y of [place] [id number] [place] JENA?BLEA [id number] [address] OFFICE [facility] 2021-03-23 2021-03-23 [facility] [id number] Univers 11:30:00 12:17:56 [facility] 2021-03-06 2021-03-06 Outpatient R ARLIN [facility] [id number] Univers 14:30:00 14:30:00 REJI liriano [facility] 2020-10-22 2020-10-22 Orders Doctor JAMIE [id number] [id number] Univers 00:00:00 00:00:00 Only Unassigned, TERRI [id number] ity of [place] [facility] [id number] [place] [id number] [address] 2020-10-14 2020-10-14 [facility] [id number] [id number] Univers 00:00:00 00:00:00 Secure Msg Odnita MULTISPEC [id number] ity [place]7.2.[place] CENTER [id number] [facility] AND GANDARA [address] [place] [facility] 2020-10-03 2020-10-03 Chief Customer Officer 2, Adc Lab [facility] [id number] [id number] Univers 13:06:13 13:21:13 Visit Reji Oliveros 350.1.13.10 ity of [place]2.[place] Profess[place] [phone] [facility] [address] [facility] 2020-10-03 2020-10-03 Office [facility] [id number] Univers 11:13:13 12:46:52 Visit Reji Vela 350.1.13.10 i [place] of [place] 4[place].2.[place] Profess[place] [phone] [facility] [address] [facility] 2020-10-03 2020-10-03 [facility] [id number] Univers 11:00:00 11:00:00 REJI liriano of [facility] 2020-10-03 2020-10-03 Orders Doctor JAMIE [id number] Univers 00:00:00 00:00:00 Only Unassigned, TERRI [id number] ity of [place] [facility] [id number] [place] as [id number] [facility] [address] 2020-10-03 2020-10-03 Telephone [facility] [id number] Univers 00:00:00 00:00:00 Reji Vela [id number] i [id number] [phone] [facility] [address] [facility] Results Test Description Test Time Test Comments Results Result Comments Source POCT HEMOGLOBIN A1C TEST 2022-03-05 18:22:00 Test Item Value Reference Range Interpretation Comme nts POCT HBA1C (test code = 4548-4) 6.0 % 4-6 [facility] [id number] 18:22:00 Test Item Value Reference Range Interpretation Comments POCT HBA1C (test code = 4548-4) 6.0 % 4-6 [facility] [id number] 18:09:00 Test Item Value Reference Range Interpretation Comments POCT HBA1C (test code = 4548-4) 5.7 % 4-6 [facility] [id number] 18:09:00 Test Item Value Reference Range Interpretation Comments POCT HBA1C (test code = 4548-4) 5.7 % 4-6 [facility] [id number] 20:54:00 Test Item Value Reference Range Interpretation Comments LIZY (test code = LIZY) Please see results in Care Everywhere. Cologuard Specimen: ?Stool specimen (specimen) - Rectum structure (body structure) Test Result Negative CommentsA negative result indicates a lower likelihood that colorectal cancer (CRC) or advanced adenoma (pre-cancer) is present. Periodic colorectal cancer screening is recommended at an interval, and with a method appropriate for the patient. Precautions and Limitations: Cologuard is intended for colorectal cancer screening of adults of either sex, 50 years or older, who are at typical average-risk for colorectal cancer. A negative Cologuard test result does not guarantee the absence of colorectal cancer or advanced adenoma (pre-cancer). Patients with a negative Cologuard test result should be advised to continue participating in a colorectal cancer screening program. Cologuard may produce a positive result, even though a colonoscopy may not find colorectal cancer or precancerous polyps. The performance of Cologuard has been established in a cross sectional study (i.e., single point in time). Performance has not been evaluated in adults who have been previously tested with Cologuard or in patients less than?50 years of age. Cologuard has been approved for use by the [place] FDA. Cologuard performance data in a 10,000 patient pivotal study using colonoscopy as the reference method can be accessed at the following location: www.[employer]/resu lts.? Additional description of the Cologuard test process, warnings and precautions can be found at www.cologuardtest.com. Rx Only. Test Type: Composite algorithmic analysis of stool DNA-biomarkers with hemoglobin immunoassay.? Quantitative values of individual biomarkers are not reportable and are not associated with individual biomarker result reference ranges. Resulting Agency [facility] (CLIA #:[id number]) Specimen Collected: 10/05/16 07:30 Last Resulted: 10/16/16 15:54 Received From: [facility] Result Received: 08/13/22 12:24 Lab Interpretation Normal (test code = 77946-3) [facility]
--- NOTE | 2022-08-25 17:25 | RAD REPORT ---
EXAM DESCRIPTION: CT - Ct Stroke Brain Wo Cont - 08/25/2022 5:18 pm CLINICAL HISTORY: Confusion/alteration of awareness COMPARISON: 2019 TECHNIQUE: Computed axial tomography of the head was obtained. All CT scans are performed using dose optimization technique as appropriate and may include automated exposure control or mA/KV adjustment according to patient size. FINDINGS: An intracranial bleed is not seen . The ventricles are normal in caliber. No extra-axial fluid collection is noted. 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 Fluid within the sinuses/ mastoids is not seen. IMPRESSION: No acute intracranial abnormality is seen. If patient's symptoms persist MRI of the bra in would be recommended Cesar Page of the emergency room was notified at 5:19 p.m. August 25, 2022
[2022-08-25 17:45] LABS: Absolute Lymphocytes (CBC) 1.5 K/uL (0.7-4.9); Hematocrit 42.6 % (39.6-49.0); Lymphocytes % 28.8 % (15.3-44.8); MCV 93.9 fL (80-100); MPV 7.6 fL (7.6-11.3); RBC Red Blood Cell Count 4.53 M/uL (4.33-5.43)
[2022-08-25 17:50] LABS: Protime INR 1.1
[2022-08-25] MEDS ORDERED: NA CHLORIDE 0.9% 500 ML ONE (17:53)
[2022-08-25] MEDS ORDERED: ASPIRIN 81 MG CHEWABLE TABLET ONE (17:53)
[2022-08-25] MEDS ORDERED: FOLIC ACID 1 MG in NA CHLORIDE 0.9% 50 ML IV ONE (18:00)
[2022-08-25 18:03] LABS: Albumin 3.7 g/dL (3.4-5.0); Bilirubin Total 1.6 mg/dL (0.2-1.0); Potassium 3.6 mEq/L (3.5-5.1); Protein, Total 6.9 g/dL (6.4-8.2); Troponin High Sensitivity 8.8 pg/mL (<58.9)
--- NOTE | 2022-08-25 18:30 | RAD REPORT ---
EXAM DESCRIPTION: [facility] Single View08/25/2022 6:06 pm CLINICAL HISTORY: confusion COMPARISON: Chest Single View dated 01/18/2019 TECHNIQUE: Portable AP view of the chest. FINDINGS: The lungs are clear. No pneumothorax or effusion. The cardiomediastinal contours are unrem arkable. IMPRESSION: No acute cardiopulmonary process.
[2022-08-25] MEDS ORDERED: CLOPIDOGREL 75 MG TABLET ONE (19:42)
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
--- NOTE | 2022-08-25 20:08 | RAD REPORT ---
EXAM DESCRIPTION: CT - Head angio - 08/25/2022 7:33 pm CLINICAL HISTORY: MENTAL STATUS CHANGE COMPARISON: Noncontrast head CT of earlier the same day. MRI brain 08/08/2018 TECHNIQUE: Axial CT angiography images of the head was performed with multiplanar and maximum intens ity projection reconstructions. Images performed following intravenous administration of 95mL Isovue 370. All CT scans are performed using dose optimization technique as appropriate and may include automated exposure control or mA/KV adjustment according to patient size. FINDINGS: No evidence of large vessel occlusion. No evidence of aneurysm or dissection flap is detec justin. No flow-limiting stenosis or vascular malformation identified. Moderate atherosclerotic calcifi cations along the carotid siphons. Antegrade flow is seen in the vertebral arteries, although the vertebrobasilar system is diminutive, with at least moderate atherosclerotic calcifications along the left more than right mid intradural v ertebral arteries. The left vertebral artery is dominant. Patent posterior cerebral arteries bilatera lly. The visualized dural venous sinuses are grossly patent. IMPRESSION: No evidence of large vessel occlusion or flow-limiting stenosis. Diminutive vertebrobasilar system, likely developmental in nature, as above.
[2022-08-25 20:21] LABS: Specific Gravity > 1.030 (1.005-1.030); Urine Bacteria None Seen /HPF (<20); Urine Bilirubin NEGATIVE (Negative); Urine Blood Negative (Negative); Urine Clarity Clear (Clear); Urine Color Light-Yellow (Yellow); Urine Glucose 4+ (Over) (Negative); Urine Mucus Slight /HPF (None Seen); Urine Protein NEGATIVE (Negative); Urine RBC <5 /HPF (None Seen); Urine Urobilinogen Normal (Normal)
--- NOTE | 2022-08-25 20:30 | RAD REPORT ---
EXAM DESCRIPTION: CT - Neck Angio - 08/25/2022 7:34 pm CLINICAL HISTORY: confusion Code stroke COMPARISON: Neck Angio dated 08/22/2018 TECHNIQUE: Axial CT angiography images of the head was performed with multiplanar and maximum intens ity projection reconstructions. Images performed following intravenous administration of 95mL Isovue 370. All CT scans are performed using dose optimization technique as appropriate and may include automated exposure control or mA/KV adjustment according to patient size. FINDINGS: A left aortic arch is identified with normal three vessel configuration of the great vesse ls. No significant flow abnormality is seen of the common carotid bilaterally. Mild atherosclerotic calc ifications seen at the carotid bifurcations bilaterally. No significant stenosis is identified involving the cervical segments of both internal carotid arteri es. Normal flow is seen within both vertebral arteries. IMPRESSION: No significant flow abnormality of the neck vessels is identified.
[2022-08-25] MEDS ORDERED: ONDANSETRON 4 MG/2 ML VIAL IV PRN (20:54)
[2022-08-25] MEDS ORDERED: ACETAMINOPHEN 500 MG TAB PO PRN (20:54)
[2022-08-25] MEDS: INSULIN -REGULAR HUMAN 50 UNIT/0.5 ML ML SQ SCH (21:00)
[2022-08-25] MEDS: ATORVASTATIN 40 MG TAB PO SCH (21:00)
[2022-08-25] MEDS: NA CHLORIDE 0.9% 1,000 ML IV SCH (21:00)
[2022-08-25] MEDS ORDERED: NA CHLORIDE 0.9% 1,000 ML IV SCH (21:00)
--- NOTE | 2022-08-25 21:08 | P.HP ---
Certification for Inpatient Patient admitted to: Observation With expected LOS: <2 Midnights Patient will require the following post-hospital care: None Practitioner: I am a practitioner with admitting privileges, knowledge of patient current condition, hospital course, and medical plan of care. Services: Services provided to patient in accordance with Admission requirements found in Title 42 Section 412.3 of the Code of Federal Regulations Patient History Date of Service: 08/25/22 Reason for admission: AMS rule out CVA History of Present Illness: 72-year-old male with history of previous CVA, dxb-hgkgpdr-bgpphrhrb diabetes, hypothyroidism presents to the emergency department with confusion. His at bedside reports she was last known well approximately 10 AM before she left for work. This evening she was talking to him when he began bringing up memories from World War II and a friend of his that served in World War II. Patient was not alive during that time nor did this friend exist per his . He remains convinced that his friend is on his way to the hospital at this time, otherwise he is oriented x4 and NIH is 0. His reports during his last stroke he had a very similar presentation, in 2019 his MRI revealed a subacute infarction in the deep periventricular white matter right frontal lobe extending into the right basal ganglia, also had scattered chronic ischemic changes in the cerebral white matter and moderate chronic ischemic changes present in the venkatesh of the brainstem at that time 2019. He has been on aspirin daily, does not take clopidogrel daily. ED discussed with neurology, he was given Plavix he will be admitted to the hospital for observation to obtain MRI and further work- up/neurology consult. Allergies No Known Allergies Allergy (Unverified 01/18/19 08:47) Home Medications: Canagliflozin [Invokana] 300 mg PO DAILY 01/18/19 Donepezil [Aricept*] 10 mg PO DAILY 01/18/19 Exenatide Microspheres [Bydureon Pen] 2 mg SQ EVERY 7TH DAY 01/18/19 Levothyroxine [Synthroid*] 50 mcg PO [id number] 01/18/19 Lisinopril/Hydrochlorothiazide [Lisinopril-Hctz 20-12.5 mg Tab] 1 each PO DAILY 01/18/19 Metoprolol Tartrate [Lopressor] 100 mg PO BID 01/18/19 NIFEdipine [Nifedipine ER] 60 mg PO BID 01/18/19 Potassium Chloride 20 meq PO DAILY 01/18/19 Simvastatin 10 mg PO BEDTIME 01/18/19 Sitagliptin Phos/Metformin HCl [Janumet 50-500 mg Tablet] 1 each PO BID 01/18/19 Tamsulosin HCl 0.4 mg PO DAILY 01/18/19 hydroCHLOROthiazide [Hydrochlorothiazide*] 12.5 mg PO DAILY 01/18/19 Aspirin [Aspirin EC 81 MG] 81 mg PO DAILY #30 tablet. 01/19/19 - Past Medical/Surgical History -: DMII -: CVA -: HTN -: HYPOTHYROID -: SKIN CANCER REMOVAL Psychosocial/ Personal History: Patient is retired and lives at home with his - Family History Father -: Diabetes Mother -: Diabetes - Social History Smoking Status: Never smoker Alcohol use: No CD- Drugs: No Caffeine use: No Place of Residence: Home Review of Systems 10-point ROS is otherwise unremarkable Neurological: Confusion Physical Examination - Physical Exam General: Alert, In no apparent distress, Oriented x3 HEENT: Atraumatic, PERRLA, Mucous membr. moist/pink, EOMI, Sclerae nonicteric Neck: Supple, 2+ carotid pulse no bruit, No LAD, Without JVD or thyroid abnormality Respiratory: Clear to auscultation bilaterally, Normal air movement Cardiovascular: No edema, Regular rate/rhythm, Normal S1 S2 Capillary refill: <2 Seconds Gastrointestinal: Normal bowel sounds, No tenderness Musculoskeletal: No tenderness Integumentary: No rashes Neurological: Normal gait, Normal speech, Normal strength at 5/5 x4 extr, Normal tone, Sensation intact, Cranial nerves 3-12 intact, Normal affect, Other (NIH 0) - Studies Laboratory Data (last 24 hrs) 08/25/22 17:27: PT 12.1, INR 1.10, APTT 33.7 08/25/22 17:27: Sodium 137, Potassium 3.6, BUN 22 H, Creatinine 1.46 H, Glucose 256 H, Magnesium 2.0, Total Bilirubin 1.6 H, AST 19, ALT 38, Alkaline Phosphatase 67 08/25/22 17:27: WBC 5.10, Hgb 14.3, Hct 42.6, Plt Count 197 Assessment and Plan - Plan Assessment: AMS rule out CVA Diabetes mellitus type [id number]-serqnsm-rkbnehutn with hyperglycemia Hypothyroidism BPH Dementia Plan: AMS rule out CVA NIH 0, oriented x4 but still with confusion, believes his friend who he served with from [place] is on the way to see him in the hospital although he did not serve in world war 2 and does not have a friend by that name per his . His reports similar presentation with stroke in 2019. MRI ordered, neurology consult in place. He was on aspirin, have added clopidogrel, statin. Lipid panel in the morning. Diabetes mellitus type [id number]-zgsjmpagq with hyperglycemia ACHS Accu-Chek, sliding scale insulin. A1c in the morning. Hypothyroidism Continue levothyroxine 0.75 mcg daily. BPH Continue tamsulosin 0.4 mg daily. Dementia Continue home medication once verified. DVT PPX: Lovenox Code status: Full Discharge Plan: Home Plan to discharge in: 24 Hours - Advance Directives Does patient have a Living Will: No Does patient have a Durable POA for Healthcare: No - Code Status/Comfort Care Code Status Assessed: Yes (Full code) Critical Care: No Time Spent Managing Pts Care (In Minutes): 70
[2022-08-25] MEDS ORDERED: NA CHLORIDE 0.9% 1,000 ML ONE (22:12)
[2022-08-25] MEDS ORDERED: ATORVASTATIN 10 MG TAB ONE (22:12)
[2022-08-25 22:35] LABS: Barbiturates NEGATIVE (NEGATIVE); Benzodiazepines NEGATIVE (NEGATIVE); Cocaine NEGATIVE (NEGATIVE); METHAMPHETAM NEGATIVE (NEGATIVE); Methadone NEGATIVE (NEGATIVE); Opiates NEGATIVE (NEGATIVE); Phencyclidine NEGATIVE (NEGATIVE); THC Cannibis NEGATIVE (NEGATIVE)
[2022-08-26 01:59] VITALS: O2SAT 98; BMI 20.1
[2022-08-26 03:38] LABS: Absolute Lymphocytes (CBC) 2.1 K/uL (0.7-4.9); Hematocrit 40.2 % (39.6-49.0); Lymphocytes % 38.3 % (15.3-44.8); MCV 93.6 fL (80-100)
[2022-08-26 04:14] LABS: Magnesium 1.8 mg/dL (1.6-2.4); Potassium 3.6 mEq/L (3.5-5.1); T4,Total 11.1 ug/dL (4.5-12.1); Thyroid Stimulating Hormone 1.74 uIU/mL (0.358-3.740)
[2022-08-26] MEDS ORDERED: MAGNESIUM SULFATE 1 gm IVPB 1 GM/100 ML BAG IV ONE (06:00)
[2022-08-26] MEDS: INSULIN -REGULAR HUMAN 50 UNIT/0.5 ML ML SQ SCH ×4 (07:30→20:46)
[2022-08-26] MEDS ORDERED: POTASSIUM CL SA 10 MEQ TAB PO ONE (09:00)
[2022-08-26] MEDS ORDERED: lisinopriL 20 MG TAB PO SCH (09:00)
[2022-08-26] MEDS: NA CHLORIDE 0.9% 1,000 ML IV SCH (10:20)
--- NOTE | 2022-08-26 10:31 | RAD REPORT ---
EXAM DESCRIPTION: MRI - Brain W/Wo Cont - 08/26/2022 10:21 am CLINICAL HISTORY: eval for CVA Headache, drowsiness, CVA symptomology COMPARISON: Head angio dated 08/25/2022 TECHNIQUE: Multi-sequence, multiplanar MR imaging of the brain was performed with contrast. FINDINGS: No intracranial hemorrhage, hydrocephalus, or extra-axial fluid collection.Moderate conflu ent T2/FLAIR hyperintensity in the periventricular and deep white matter is present compatible with c hronic microvascular ischemic changes. No edema or shift of midline structures. No intracranial mass. There is a the acute 12 mm nonhemorrhagic infarcts seen left basal ganglia anteriorly adjacent to th e frontal horn of left lateral ventricle.. The midline structures are normally formed. Mastoid air cells and paranasal sinuses are essentially c lear. Post-contrast images show no abnormal enhancement to suggest tumor or infection. IMPRESSION: 12 mm nonhemorrhagic acute CVA is seen anterior left basal ganglia adjacent left frontal horn of left lateral ventricle. No additional CVA or acute finding. No pathologic post-contrast enhancement suspected.
[2022-08-26] MEDS: ENOXAPARIN 40 MG/0.4 ML SQ SCH (10:54)
[2022-08-26] MEDS: CLOPIDOGREL 75 MG TABLET PO SCH (10:54)
[2022-08-26] MEDS: ASPIRIN EC 81 MG TAB PO SCH (10:54)
[2022-08-26] MEDS: FOLIC ACID 1 MG TABLET PO SCH (10:55)
[2022-08-26 12:08] LABS: Bilirubin Direct 0.3 mg/dL (0-0.2); Bilirubin Total 1.3 mg/dL (0.2-1.0)
--- NOTE | 2022-08-26 16:33 | P.PN ---
Subjective Date of Service: 08/26/22 Chief Complaint: AMS rule out CVA No acute events overnight. He is alert and oriented x4 to person, place, time, and situation. He has delusions that he is currently in [place] with his friend. His , at bedside, states that he has no friend with this name. He states that he was with his friend in 1941, but also acknowledges that he was not born until 1950. He states that he knows that this is not possible, but still believes that it happened. He denies any headaches, visual disturbances, chest pain, palpitations, or shortness of breath. Review of Systems 10-point ROS is otherwise unremarkable Neurological: Confusion (delusions) Physical Examination - Vital Signs Temperature: 98.3 F Blood Pressure: 179/90 Pulse: 49 Respirations: 16 Pulse Ox (%): 97 - Physical Exam General: Alert, In no apparent distress, Oriented x3 HEENT: Atraumatic, Mucous membr. moist/pink, EOMI, Sclerae nonicteric Neck: JVD not distended Respiratory: Clear to auscultation bilaterally, Normal air movement Cardiovascular: No edema, Regular rate/rhythm, Normal S1 S2, No gallops, No rubs, No murmurs Gastrointestinal: Normal bowel sounds, Soft and benign, Non-distended, No tenderness, No rebound, No guarding Musculoskeletal: No clubbing Integumentary: No rashes Neurological: Normal speech, Normal strength at 5/5 x4 extr, Normal tone, Sensation intact, Cranial nerves 3-12 intact, Normal affect - Studies Laboratory Data (last 24 hrs) 08/25/22 17:27: PT 12.1, INR 1.10, APTT 33.7 08/25/22 17:27: Sodium 137, Potassium 3.6, BUN 22 H, Creatinine 1.46 H, Glucose 256 H, Magnesium 2.0, Total Bilirubin 1.6 H, AST 19, ALT 38, Alkaline Phosphatase 67 08/25/22 17:27: WBC 5.10, Hgb 14.3, Hct 42.6, Plt Count 197 Assessment And Plan - Plan NIH Stroke Scale 1a. Level of consciousness: 0 - Alert; keenly responsive 1b. LOC questions: 0 - Both questions right 1c. LOC commands: 0 - Performs both tasks 2. Best Gaze: 0 - Normal 3. Visual: 0 - No visual loss 4. Facial Palsy: 0 - Normal symmetry 5a. Motor left arm: 0 - No drift for 10 seconds 5b. Motor right arm: 0 - No drift for 10 seconds 6a. Motor left le - No drift for 5 seconds 6b. Motor right le - No drift for 5 seconds 7. Limb ataxia: 0 - No ataxia 8. Sensory: 0 - Normal; no sensory loss 9. Best Language: 0 - Normal; no aphasia 10. Dysarthria: 0 - Normal 11. Extinction and Inattention: 0 - No abnormality 12. Distal motor function: 0 - No abnormality Total Score: 0 # Acute Ischemic Left Basal Gangllia Cerebrovascular Accident # History of Cerebrovascular Accident (2019) - Consulted Neurology and spoke with Dr. Varela - recommendations appreciated - No neurologic deficits on my exam - NIHSS = 0 - Allow permissive hypertension for today - q4hr neurochecks - Radiology: - CT head = "no acute intracranial abnormality is seen. If patient's symptoms persist MRI of the brain would be recommended" - CT head angiogram = "no evidence of large vessel occlusion or flow-limiting stenosis. Diminutive vertebrobasilar system, likely developmental in nature, as above." - CT neck angiogram = "no significant flow abnormality of the neck vessels is identified." - MRI brain = "12 mm nonhemorrhagic acute CVA is seen anterior left basal ganglia adjacent left frontal horn of left lateral ventricle. No additional CVA or acute finding. No pathologic post-contrast enhancement suspected." - Ordered transthoracic echocardiogram - PT evaluation requested - Ordered risk profile: - Hgb A1c = 6.5 % - Lipid Panel = TC 179, LDL 93, HDL 43, TG 216 - TSH = 1.74 - Per Dr. Varela, started aspirin, atorvastatin, folic acid, clopidogrel # Hypothyroidism - Continue home levothyroxine # Hypertension - Hold home lisinopril, metoprolol, nifedipine to allow permissive hypertension # Benign Prostatic Hyperplasia - Hold home tamsulosin to allow permissive hypertension # Dementia - Continue home donepezil Jason Ochoa M.D.
[2022-08-26] MEDS: ATORVASTATIN 40 MG TAB PO SCH (20:46)
--- NOTE | 2022-08-27 01:10 | CON ---
Reason For Consultation: Consultation called because of stroke. History Of Present Illness: Mr. Lai is a 72-year-old patient with dementia, hypothyroidism, hyper tension, dyslipidemia, prostate hypertrophy who comes to [facility] with more disorientation , confusion, and was brought by his and daughter. Patient was apparently convinced that he was alive and fought in World War 2 when he was just hardly born at that point. His family also said he felt as though he was some form a paratrooper in an airplane and had jumped out of the airplane and h ad some mishaps. His says that typically he would watch lots of war movies and appears to belie ve that he is actually in the war movies as the movies are going on. His first stroke occurred in and he had similar episodes of delusions and paranoid thinking. His current imaging of the brain MRI identified an acute stroke measuring 12 mm in the left basal ganglia adjacent to the left frontal horn of the left lateral ventricle. There was no hemorrhagic component. It was ischemic. His labo ratory studies showed normal complete blood count with differential. Coagulation panel was normal. Basic metabolic panel was remarkable for blood sugars being elevated around 198, highest. A1c was 6. 5. Total bilirubin elevated at 1.3, direct bilirubin elevated 2.3. Total cholesterol 179, LDL 93, H DL 43. B12 of 835. TSH 1.74. T4 of 11.1. Creatine kinase is normal. Liver function studies precious l. His urinalysis showed 4+ glucose, specific gravity elevated 1.03, otherwise negative. He had a n egative urine drug screen and pending RPR. Patient was taking aspirin and reportedly was compliant w ith that at the time of his first stroke and this second stroke also compliant. Despite the stroke c linically, the patient actually had no deficits. NIH Stroke Scale when he came to the [facility] was 0. Aside from the false thinking, the patient was fully oriented and followed all commands appropriately. Past Medical History: As noted. Past Surgical History: Skin cancer removal. Allergies: NO KNOWN DRUG ALLERGIES. Medications: Invokana 300 mg daily, Aricept 10 mg daily, exenatide 2 mg subcutaneously every seventh day, levothyroxine 500 mcg daily, lisinopril/hydrochlorothiazide 20/12.5 one tablet daily, Lopressor 100 mg twice daily, nifedipine 60 mg twice daily, potassium 20 mEq daily, simvastatin 10 mg at bedti me, metformin (Janumet) 50/500 twice daily, tamsulosin 0.4 g daily, hydrochlorothiazide 12.5 mg daily , aspirin 81 mg daily. Family History: Diabetes in father and mother. Social History: No alcohol, tobacco, or IV drug use. Patient lives with at home. Review of Systems: No fevers, chills, nausea, vomiting, myalgias, arthralgias. Patient does have the false beliefs and thinking. Otherwise, negative on a 10-point systems review. Physical Examination: Vital Signs: Blood pressure 155 up to 179 over 83-90, pulse 45-49, respiratory rate 14-18, temperatu re 98.3, oxygen saturation 97%. Weight 157 pounds. Height 6 feet 2 inches. BMI 20.2. General: Mr. Lai is lying in bed. He is in no significant distress. HEENT: He is normocephalic, atraumatic. Sclerae anicteric. Oropharynx is pink and moist. Neck: Supple. Chest: Clear. Heart: Regular. Extremities: Show no clubbing, cyanosis, or edema. Neurological: Patient falls asleep easily, but is easily aroused and once he is spoken to directly, he maintained awareness and was interactive. He has no focal cranial nerve, motor, coordination, sen cindi, or reflex deficits. Reflexes are symmetric. With gait, he is able to stand and ambulate witho ut any assistive device and no ataxia or unsteadiness. Diagnostic Studies: CT angiogram of the head and neck showed no significant abnormalities. Assessment: Mr. Lai is a 72-year-old patient with prior stroke and multiple stroke risk factors i ncluding hypertension, diabetes mellitus. He also has hypothyroidism, and he has dementia. He was o n aspirin when second stroke occurred, therefore should be considered an aspirin failure. Plan: Aspirin 81 mg daily along with Plavix 75 mg daily and folic acid 1 mg daily. In addition, con tinue statin. He is on Lipitor 40 mg at night. 1.Donepezil 10 mg daily. 2.Consider adding memantine 10 mg daily. 3.Levothyroxine 0.05 mg daily. 4.Continue Flomax. 5.After discharge, he may follow up in Dr. Varela's clinic within a month. BRENT/MILTON Voice ID: [id number] Report ID: [id number]
[2022-08-27] MEDS: NA CHLORIDE 0.9% 1,000 ML IV SCH ×2 (01:48→14:01)
[2022-08-27 02:22] LABS: RPR (Rapid Plasma Reagin) NON-REACT (NON-REACT)
[2022-08-27] MEDS ORDERED: LEVOTHYROXINE SOD 0.05 MG TABLET PO SCH (06:00)
--- NOTE | 2022-08-27 07:04 | EKG ---
Test Date: 2022-08-25 Test Time: 17:31:37 Truck Washer: HERMES MEASUREMENT RESULTS: Intervals: Rate: 63 AK: 190 QRSD: 96 QT: 456 QTc: 466 [place]: P: 71 AK: 190 QRS: 56 T: 62 INTERPRETIVE STATEMENTS: Sinus rhythm with occasional premature ventricular complexes Nonspecific ST abnormality Abnormal ECG Compared to ECG 01/18/2019 07:02:26 Ventricular premature complex(es) now present ST (T wave) deviation now present Myocardial infarct finding no longer present Electronically Signed On 08-27-22 07:00:23 CDT by Turner Mcdaniel
[2022-08-27] MEDS: INSULIN -REGULAR HUMAN 50 UNIT/0.5 ML ML SQ SCH ×3 (07:30→16:30)
[2022-08-27 07:42] LABS: Magnesium 1.9 mg/dL (1.6-2.4)
[2022-08-27 07:49] LABS: Absolute Lymphocytes (CBC) 2.6 K/uL (0.7-4.9); Hematocrit 42.9 % (39.6-49.0); Lymphocytes % 40.3 % (15.3-44.8); MCV 93.8 fL (80-100); MPV 8.3 fL (7.6-11.3); RBC Red Blood Cell Count 4.58 M/uL (4.33-5.43)
[2022-08-27] MEDS ORDERED: POTASSIUM 25 MEQ EFFERV TAB PO ONE (08:03)
[2022-08-27 08:04] LABS: Bilirubin Direct 0.3 mg/dL (0-0.2); Bilirubin Total 1.8 mg/dL (0.2-1.0)
[2022-08-27] MEDS ORDERED: DONEPEZIL HCL 5 MG TAB PO SCH (09:00)
[2022-08-27] MEDS: ENOXAPARIN 40 MG/0.4 ML SQ SCH (09:56)
[2022-08-27] MEDS: CLOPIDOGREL 75 MG TABLET PO SCH (09:56)
[2022-08-27] MEDS: ASPIRIN EC 81 MG TAB PO SCH (09:56)
[2022-08-27] MEDS: FOLIC ACID 1 MG TABLET PO SCH (09:56)
--- NOTE | 2022-08-27 15:44 | P.DS ---
Admission Date: 08/25/22 Discharge Date: 08/27/22 Disposition: ROUTINE DISCHARGE Discharge Condition: GOOD Reason for Admission: AMS rule out CVA Consultations: 1. 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 Isiah Lai is a pleasant 72 year old male with a past medical history significant for a prior cerebrovascular accident (2019), type 2 diabetes mellitus, hypothyroidism, hypertension, benign prostatic hyperplasia, and dementia who was admitted to the [facility] on 08/25/2022 for altered mentation/delusions. He was admitted to the Medicine service. Upon further evaluation, his CT head revealed, "no acute intracranial abnormality is seen. If patient's symptoms persist MRI of the brain would be recommended." His CT head angiogram revealed, "no evidence of large vessel occlusion or flow-limiting stenosis. Diminutive vertebrobasilar system, likely developmental in nature, as above." His CT neck angiogram revealed, "no significant flow abnormality of the neck vessels is identified." His MRI brain revealed, "12 mm nonhemorrhagic acute CVA is seen anterior left basal ganglia adjacent left frontal horn of left lateral ventricle. No additional CVA or acute finding. No pathologic post-contrast enhancement suspected." Neurology was consulted and he was evaluated by Dr. Varela. He has cleared him for discharge with aspirin, atorvastatin, clopidogrel, and folic acid. During his hospitalization, he was remained bradycardic. A transthoracic echocardiogram was obtained and reviewed by Dr. Mcdaniel. He reported that the echocardiogram was without significant findings. His EKG confirmed sinus bradycardia. He has remained asymptomatic with these heart rates. I spoke with Dr. Mcdaniel he stated that he can be discharged with outpatient follow-up. Incidentally, he was found to have indirect hyperbilirubinemia. It appears that he has had this finding since 2019. He denies any fevers, chills, abdominal pain, nausea, vomiting, or jaundice. He was advised to follow-up with his PCP. On 08/27/2022, he was seen on rounds and deemed medically stable for discharge. He was discharged with instructions to schedule follow-up appointments with his PCP (TOBY Bourne), with Cardiology (Dr. Mcdaniel), and with Neurology (Dr. Varela). He was provided prescriptions for atrovastatin and clopidogrel. He and his family members were given the opportunity to ask questions and reported no further questions. Furthermore, all questions were answered to the best of my ability. A copy of this discharge summary will be sent to the above providers to facilitate continuity of care. Today, I personally spent 25 minutes on his case, of which greater than 50% of the time was spent in patient education, counseling, and coordination of care as described above. Physical Exam General: Alert, In no apparent distress, Oriented x3 HEENT: Atraumatic, Mucous membr. moist/pink, EOMI, Sclerae nonicteric Neck: JVD not distended Respiratory: Clear to auscultation bilaterally, Normal air movement Cardiovascular: No edema, Bradycardic rate, Regular rhythm, No gallops, No rubs, No murmurs Gastrointestinal: Normal bowel sounds, Soft, Non-distended, No tenderness, No rebound, No guarding Musculoskeletal: No clubbing Integumentary: No rashes Neurological: Normal speech, Normal strength at 5/5 x4 extr, Normal tone, Sensation intact, Cranial nerves 3-12 intact, Normal affect NIH Stroke Scale 1a. Level of consciousness: 0 - Alert; keenly responsive 1b. LOC questions: 0 - Both questions right 1c. LOC commands: 0 - Performs both tasks 2. Best Gaze: 0 - Normal 3. Visual: 0 - No visual loss 4. Facial Palsy: 0 - Normal symmetry 5a. Motor left arm: 0 - No drift for 10 seconds 5b. Motor right arm: 0 - No drift for 10 seconds 6a. Motor left le - No drift for 5 seconds 6b. Motor right le - No drift for 5 seconds 7. Limb ataxia: 0 - No ataxia 8. Sensory: 0 - Normal; no sensory loss 9. Best Language: 0 - Normal; no aphasia 10. Dysarthria: 0 - Normal 11. Extinction and Inattention: 0 - No abnormality 12. Distal motor function: 0 - No abnormality Total Score: 0 Vital Signs/Physical Exam: Temp Pulse Resp BP Pulse Ox 97.7 F 50 14 190/93 H 98 08/27/22 12:00 08/27/22 12:00 08/27/22 12:00 08/27/22 12:00 08/27/22 12:00 Laboratory Data at Discharge: WBC 6.30 thou/uL (4.3-10.9) 08/27/22 06:53 Hgb 14.1 g/dL (13.6-17.9) 08/27/22 06:53 Hct 42.9 % (39.6-49.0) 08/27/22 06:53 Plt Count 203 thou/uL (152-406) 08/27/22 06:53 PT 12.1 SECONDS (9.5-12.5) 08/25/22 17:27 INR 1.10 08/25/22 17:27 APTT 33.7 SECONDS (24.3-36.9) 08/25/22 17:27 Sodium 139 mEq/L (136-145) 08/27/22 06:53 Potassium 3.0 mEq/L (3.5-5.1) L 08/27/22 06:53 BUN 16 mg/dL (7-18) 08/27/22 06:53 Creatinine 0.98 mg/dL (0.70-1.30) 08/27/22 06:53 Glucose 117 mg/dL (74-106) H 08/27/22 06:53 Magnesium 1.9 mg/dL (1.6-2.4) 08/27/22 06:53 Total Bilirubin 1.8 mg/dL (0.2-1.0) H 08/27/22 06:53 AST 19 U/L (15-37) 08/25/22 17:27 ALT 38 U/L (16-61) 08/25/22 17:27 Alkaline Phosphatase 67 U/L (45-117) 08/25/22 17:27 Triglycerides 216 mg/dL (<150) H 08/26/22 02:22 Cholesterol 179 mg/dL (<200) 08/26/22 02:22 HDL Cholesterol 43 mg/dL (40-60) 08/26/22 02:22 Cholesterol/HDL Ratio 4.16 08/26/22 02:22 Home Medications: Donepezil [Aricept*] 10 mg PO DAILY 01/18/19 Tamsulosin HCl 0.4 mg PO DAILY 01/18/19 Aspirin [Aspirin EC 81 MG] 81 mg PO DAILY #30 tablet. 01/19/19 Atorvastatin Calcium [Lipitor] 40 mg PO BEDTIME #30 tab 08/27/22 Clopidogrel Bisulfate [Plavix*] 75 mg PO DAILY #30 tab 08/27/22 Empagliflozin [Jardiance] 1 tab PO DAILY 08/27/22 Folic Acid 1 mg PO DAILY #30 08/27/22 Levothyroxine [Synthroid*] 75 mcg PO [id number] 08/27/22 Memantine HCl [Memantine HCl ER] 1 cap PO DAILY 08/27/22 lisinopriL [Lisinopril] 1 tab PO DAILY 08/27/22 New Medications: Folic Acid 1 mg PO DAILY #30 Atorvastatin Calcium [Lipitor] 40 mg PO BEDTIME #30 tab Clopidogrel Bisulfate [Plavix*] 75 mg PO DAILY #30 tab Physician Discharge Instructions: 1. Please call and schedule a follow-up appointment with your PCP (TOBY Bourne) in 3-5 days - As we discussed, your bilirubin levels were elevated. Please discuss with your PCP for further evaluation 2. Please call and schedule a follow-up appointment with Neurology (Dr. Varela) in 5-7 days - Please have him refill your atorvastatin and clopidogrel 3. Please call and schedule a follow-up appointment with Cardiology (Dr. Mcdaniel) in 5-7 days - Please have him follow-up on your heart rate Diet: AHA Activity: Ad [place] Followup: Soumya Bourne NP [Primary Care Provider] - Turner Mcdaniel MD [ACTIVE - CAN ADMIT] - Gabriel Varela MD [ASSOCIATE-ACTIVE - CAN ADMIT] - Time spent managing pt's care (in minutes): 25
[2022-08-27 17:26] VITALS: BP 189/94; TEMP 98.4
--- NOTE | 2022-08-30 07:09 | ECHO ---
HEIGHT: 6 ft 2 in WEIGHT: 157 lb 0 oz DATE OF STUDY: 08/27/[address]: Estevan Herzog NP 2-DIMENSIONAL: YES M.MODE: YES DOPPLER: YES COLOR FLOW: YES TDS: YES PORTABLE: NO DEFINITY: NO BUBBLE STUDY: NO DIAGNOSIS: CEREBRAL VASCULAR ACCIDENT CARDIAC HISTORY: CATHERIZATION: NO SURGERY: NO PROSTHETIC VALVE: NO PACEMAKER: NO MEASUREMENTS (cm) DIASTOLIC (NORMALS) SYSTOLIC (NORMALS) IVSd 1.2 (0.6-1.2) LA Diam 2.8 (1.9-4.0) LVEF 54% LVIDd 3.7 (3.5-5.7) LVIDs 2.7 (2.0-3.5) %FS 27% LVPWd 1.3 (0.6-1.2) Ao Diam 2.5 (2.0-3.7) 2 DIMENSIONAL ASSESSMENT: RIGHT ATRIUM: NOT WELL SEEN LEFT ATRIUM: NORMAL RIGHT VENTRICLE: LEFT VENTRICLE: NORMAL TRICUSPID VALVE: MITRAL VALVE: NORMAL PULMONIC VALVE: AORTIC VALVE: NORMAL PERICARDIAL EFFUSION: NONE AORTIC ROOT: NORMAL LEFT VENTRICULAR WALL MOTION: APPEARS NORMAL. DOPPLER/COLOR FLOW: SEE BELOW. COMMENTS: LIMITED WINDOWS OVERALL LEFT VENTRICULAR EJECTION FRACTION APPEARS NORMAL. TECHNOLOGIST: CHILANGO PORTILLO
== END 2022-08-27 19:00 | disposition home or self-care (01) ==
LOC: ER 16:56 → ERHOLD 20:41 → 2ND 22:33
PROVIDERS: ADMIT Internal Medicine; ATTEND Internal Medicine
DX: I63.9 Cerebral infarction, unspecified (principal); R29.700 NIHSS score 0; E11.65 Type 2 diabetes mellitus with hyperglycemia; E03.9 Hypothyroidism, unspecified; N40.0 Benign prostatic hyperplasia without lower urinary tract symptoms; F03.90 Unspecified dementia, unspecified severity, without behavioral disturbance, psychotic disturbance, mood disturbance, and anxiety
CPT/HCPCS: 96365; 93005; 93306; 85025 ×3; 81001; 80048 ×2; 36415 ×2; 82247 ×2; 83735 ×3; 82550; 85610; 80061; 82947 ×9; 86592; 85730; 84436; 84443; 82248 ×2; 83036; 84484; 82607; 80053; 80307; 70496; 70498; 70450; 71045; 70553; 97116 ×4; 97161; 99285; Q9967; A9577; J1815; J3475; J1650; J7050; J7030 ×4; G0378

== ENCOUNTER 2022-09-20 11:27 | Emergency (ER) | payer OTHER, MEDICARE ==
--- OUTSIDE RECORDS SUMMARY | 2022-09-20 11:32 | XMS REPORT | Continuity of Care Document ---
:1950 Author Organization [facility] t Address [address] [place] [address] [place] [id number] Care Team Providers Name Role Phone TERE MONTEIRO Primary Care Physician Unavailable Soumya Bourne Attending Clinician Unavailable JUSTA CHILDS Attending Clinician Unavailable JUSTA CHILDS Attending Clinician Unavailable Team, [facility] Health Maintenance Attending Clinician Unavailabl e Doctor Unassigned, [place] Attending Clinician Unavailable Donita Abraham Attending Clinician [...] rs active active ity of problems problems [facility] Allergies, Adverse Reactions, Alerts Allergy Allergy Status Severity Reaction(s) Onset Inactive Treating Comm ents Source Name Type Date Date Clinician NO KNOWN Drug Active Univers ALLERGIE Class ity of S [facility] Social History Social Habit Start Date Stop Date Quantity Comments Source Exposure to 2022-02-23 2022-03-05 Not sure [facility]-2 00:00:00 13:02:00 [facility] (event) [place] Alcohol intake 2021-03-23 2021-03-23 Ex-drinker [facility] 00:00:00 00:00:00 (finding) [facility] Tobacco use and 2020-10-03 2020-10-03 Smokeless tobacco Un iversity of exposure 00:00:00 00:00:00 non-user [facility] Sex Ass[birth year] Universit y of 00:00:00 00:00:00 [facility] Smoking Status Start Date Stop Date Source Never smoked tobacco [facility] Medications Ordered Filled Start Stop Current Ordering Indication Dosage Frequency Signature Comments Components Source Medication Medication Date Date Medication? Clinician (SIG) Name Name canaglifloz 2021-05 Yes [id number] 300mg Take 1 Univers in 1-09 tablet by ity of (INVOKANA) 00:00: mouth in [place] 300 mg 00 the Medical tablet morning. Branch levothyroxi 2021-05 Yes [id number] 75ug Take 1 Univers ne 75 mcg 1-09 tablet by ity o f tablet 00:00: mouth [place] 00 every Medical morning. Branch metformin 2021-05 Yes [id number] 500mg Take 1 U nivers ER 500 mg 1-09 tablet by ity o f 24 hr 00:00: mouth in [place] tablet 00 the Medical morning Branch and 1 tablet in the evening. canaglifloz 2021-05 Yes [id number] 300mg Take 1 Univers in 1-09 tablet by ity of (INVOKANA) 00:00: mouth in [place] 300 mg 00 the Medical tablet morning. Branch levothyroxi 2021-05 Yes [id number] 75ug Take 1 Univers ne 75 mcg 1-09 tablet by ity o f tablet 00:00: mouth [place] 00 every Medical morning. Branch metformin 2021-05 Yes [id number] 500mg Take 1 U nivers ER 500 mg 1-09 tablet by ity o f 24 hr 00:00: mouth in [place] tablet 00 the Medical morning Branch and 1 tablet in the evening. canaglifloz 2021-05 Yes [id number] 300mg Take 1 Univers in 1-09 tablet by ity of (INVOKANA) 00:00: mouth in [place] 300 mg 00 the Medical tablet morning. Branch levothyroxi 2021-05 Yes [id number] 75ug Take 1 Univers ne 75 mcg 1-09 tablet by ity o f tablet 00:00: mouth [place] 00 every Medical morning. Branch metformin 2021-05 Yes [id number] 500mg Take 1 U nivers ER 500 mg 1-09 tablet by ity o f 24 hr 00:00: mouth in [place] tablet 00 the Medical morning Branch and 1 tablet in the evening. canaglifloz 2021-05 Yes [id number] 300mg Take 1 Univers in 1-09 tablet by ity of (INVOKANA) 00:00: mouth in [place] 300 mg 00 the Medical tablet morning. Branch levothyroxi 2021-05 Yes [id number] 75ug Take 1 Univers ne 75 mcg -09 tablet by ity o f tablet 00:00: mouth [place] 00 every Medical morning. Branch metformin 2021-05 Yes [id number] 500mg Take 1 U nivers ER 500 [...] :00 weekly. Medical Branch canaglifloz 2021-05 Yes [id number] 300mg Take 1 Univers in - tablet by ity of (INVOKANA) 00:00: mouth in [place] 300 mg 00 the Medical tablet morning. Branch dulaglutide 2021-05 Yes [id number] Inject 1.5 Univers (TRULICITY) 1-04 mg weekly ity of 1.5 mg/0.5 00:00: [place] mL PnIj 00 Medical Branch levothyroxi 2021-05 Yes [id number] 75ug Take 1 Univers ne 75 mcg 1-04 tablet by ity o f tablet 00:00: mouth [place] 00 every Medical morning. Branch metformin 2021-05 Yes [id number] 500mg Take 1 U nivers ER 500 mg 1-04 tablet by ity o f 24 hr 00:00: mouth in [place] tablet 00 the Medical morning Branch and 1 tablet in the evening. canaglifloz 2021-05 Yes [id number] 300mg Take 1 Univers in 1-04 tablet by ity of (INVOKANA) 00:00: mouth in [place] 300 mg 00 the Medical tablet morning. Branch dulaglutide 2021-05 Yes [id number] Inject 1.5 Univers (TRULICITY) 1-04 mg weekly ity of 1.5 mg/0.5 00:00: [place] mL PnIj 00 [facility] Branch levothyroxi 2021-05 Yes [id number] 75ug Take 1 Univers ne 75 mcg 05-05 tablet by ity o f tablet 00:00: mouth [place] 00 every Medical morning. Branch metformin 2021-05 Yes [id number] 500mg Take 1 U nivers ER 500 mg - tablet by ity o f 24 hr 00:00: mouth in [place] tablet 00 the Medical morning Branch and 1 tablet in the evening. dulaglutide 2021-05 Yes [id number] Inject 1.5 Univers (TRULICITY) 1-04 mg weekly ity of 1.5 mg/0.5 00:00: [place] mL PnIj 00 [facility] dulaglutide 2021-05 Yes [id number] Inject 1.5 Univers (TRULICITY) 1-04 mg weekly ity of 1.5 mg/0.5 00:00: [place] mL PnIj 00 [facility] dulaglutide 2021-05 Yes [id number] Inject 1.5 Univers (TRULICITY) 1-04 mg weekly ity of 1.5 mg/0.5 00:00: [place] mL PnIj 00 [facility] dulaglutide 2021-05 Yes [id number] Inject 1.5 Univers (TRULICITY) 1-04 mg weekly ity of 1.5 mg/0.5 00:00: [place] mL PnIj 00 [facility] canaglifloz 2021-05- No [id number] 300mg Take 1 Univers in 05-05 tablet by ity of (INVOKANA) 00:00: 00:00 mouth in [place] 300 mg 00 :00 the Medical tablet morning. Branch levothyroxi 2021-05- No [id number] 75ug Take 1 Univers ne 75 mcg 05-05 tablet by ity of tablet 00:00: 00:00 mouth [place] 00 :00 every Medical morning. Branch metformin 2021-05- No [id number] 500mg Take 1 Univers ER 500 mg [...] 21 :00 daily. Medical Branch METFORMIN Yes [id number] TAKE 1 U nivers ER 500 mg 3-01 TABLET BY ity o f 24 hr 00:00: MOUTH [place] tablet 00 TWICE Medical DAILY Branch METFORMIN Yes [id number] TAKE 1 U nivers ER 500 mg 3-01 TABLET BY ity o f 24 hr 00:00: MOUTH [place] tablet 00 TWICE Medical DAILY Branch METFORMIN Yes [id number] TAKE 1 U nivers ER 500 mg 3-01 TABLET BY ity o f 24 hr 00:00: MOUTH [place] tablet 00 TWICE Medical DAILY Branch METFORMIN 2021-0 2021- No [id number] TAKE 1 Univers ER 500 mg 3-05 12- TABLET BY ity of 24 hr 00:00: 00:00 MOUTH [place] tablet 00 :00 TWICE Medical DAILY Branch METFORMIN 2021-0 2021- No [id number] TAKE 1 Univers ER 500 mg 3-05 [...] by mouth ity of tablet 11:44: at [place] [address] bedtime. Medical Branch tamsulosin 2020-05 Yes Take by Univ ers 0.4 mg 24 1-22 mouth ity of hr capsule 11:44: daily. [address] aspirin 81 2020-05 Yes 81mg Take 81 mg U nivers mg chewable 1-22 by mouth ity of tablet 11:44: daily. [place] [address] Medical Branch dulaglutide 2020-05 Yes 1.5mg inject 1.5 Univers (TRULICITY) 1-22 mg under ity of 1.5 mg/0.5 11:44: the skin [place] mL PnIj 40 weekly. Medical Branch carvediloL 2020-05 Yes 6.25mg Take 6.25 Univers (COREG) 1-22 mg by ity of 6.25 mg 11:44: mouth 2 [place] tablet 40 (two) Medical times [place] daily with meals. donepeziL 2020-05 Yes 10mg Take 10 mg Un nupur 10 mg 1-22 by mouth ity of tablet 11:44: at [place] [address] bedtime. Medical Branch tamsulosin 2020-05 Yes Take by [facility] [place] [facility] ers 0.4 mg 24 1-22 mouth ity of hr capsule 11:44: daily. [address] aspirin 81 2020-05 Yes 81mg Take 81 mg U nivers mg chewable 1-22 by mouth ity of tablet 11:44: daily. [address] dulaglutide 2020-05 Yes 1.5mg inject 1.5 Univers (TRULICITY) 1-22 mg under ity of 1.5 mg/0.5 11:44: the skin [place] mL PnIj 40 weekly. Medical Branch carvediloL 2020-05 Yes 6.25mg Take 6.25 Univers (COREG) 1-22 mg by ity of 6.25 mg 11:44: mouth 2 [place] tablet 40 (two) Medical times [place] daily with meals. donepeziL 2020-05 Yes 10mg Take 10 mg Un nupur 10 mg 1-22 by mouth ity of tablet 11:44: at [place] [address] bedtime. Medical Branch tamsulosin 2020-05 Yes Take by Univ ers 0.4 mg 24 1-22 mouth ity of hr capsule 11:44: daily. [address] aspirin 81 2020-05 Yes 81mg Take 81 mg U nivers mg chewable 1-22 by mouth ity of tablet 11:44: daily. [address] Branch carvediloL 2020-05 Yes 6.25mg Take 6.25 Univers (COREG) 1-22 mg by ity of 6.25 mg 11:44: mouth 2 [place] tablet 40 (two) Medical times [place] daily with meals. donepeziL 2020-05 Yes 10mg Take 10 mg Un nupur 10 mg 1-22 by mouth ity of tablet 11:44: at [place] [address] bedtime. Medical Branch tamsulosin 2020-05 Yes Take by Univ ers 0.4 mg 24 1-22 mouth ity of hr capsule 11:44: daily. [address] aspirin 81 2020-05 Yes 81mg Take 81 mg U nivers mg chewable 1-22 by mouth ity of tablet 11:44: daily. [address] carvediloL 2020-05 Yes 6.25mg Take 6.25 Univers (COREG) 1-22 mg by ity of 6.25 mg 11:44: mouth 2 [place] tablet 40 (two) Medical times [place] daily with meals. donepeziL 2020-05 Yes 10mg Take 10 mg Un nupur 10 mg 1-22 by mouth ity of tablet 11:44: at [place] [address] bedtime. Medical Branch tamsulosin 2020-05 Yes Take by Univ ers 0.4 mg 24 1-22 mouth ity of hr capsule 11:44: daily. [address] aspirin 81 2020-05 Yes 81mg Take 81 mg U nivers mg chewable 1-22 by mouth ity of tablet 11:44: daily. [address] Branch carvediloL 2020-05 Yes 6.25mg Take 6.25 Univers (COREG) 1-22 mg by ity of 6.25 mg 11:44: mouth 2 [place] tablet 40 (two) Medical times [place] daily with meals. donepeziL 2020-05 Yes 10mg Take 10 mg Un nupur 10 mg 1-22 by mouth ity of tablet 11:44: at [place] [address] bedtime. Medical Branch tamsulosin 2020-05 Yes Take by Univ ers 0.4 mg 24 1-22 mouth ity of hr capsule 11:44: daily. [address] aspirin 81 2020-05 Yes 81mg Take 81 mg U nivers mg chewable 1-22 by mouth ity of tablet 11:44: daily. [address] Branch carvediloL 2020-05 Yes 6.25mg Take 6.25 Univers (COREG) 1-22 mg by ity of 6.25 mg 11:44: mouth 2 [place] tablet 40 (two) Medical times [place] daily with meals. donepeziL 2020-05 Yes 10mg Take 10 mg Un nupur 10 mg 1-22 by mouth ity of tablet 11:44: at [place] [address] bedtime. Medical Branch tamsulosin 2020-05 Yes Take by Univ ers 0.4 mg 24 1-22 mouth ity of hr capsule 11:44: daily. [address] aspirin 81 2020-05 Yes 81mg Take 81 mg U nivers mg chewable 1-22 by mouth ity of tablet 11:44: daily. [address] carvediloL 2020-05 Yes 6.25mg Take 6.25 Univers (COREG) 1-22 mg by ity of 6.25 mg 11:44: mouth 2 [place] tablet 40 (two) Medical times [place] daily with meals. donepeziL 2020-05 Yes 10mg Take 10 mg Un nupur 10 mg 1-22 by mouth ity of tablet 11:44: at [place] [address] bedtime. Medical Branch tamsulosin 2020-05 Yes Take by Univ ers 0.4 mg 24 1-22 mouth ity of hr capsule 11:44: daily. [address] aspirin 81 2020-05 Yes 81mg Take 81 mg U nivers mg chewable 1-22 by mouth ity of tablet 11:44: daily. [address] Branch carvediloL 2020-05 Yes 6.25mg Take 6.25 Univers (COREG) 1-22 mg by ity of 6.25 mg 11:44: mouth 2 [place] tablet 40 (two) Medical times [place] daily with meals. donepeziL 2020-05 Yes 10mg Take 10 mg Un nupur 10 mg 1-22 by mouth ity of tablet 11:44: at [place] [address] bedtime. Medical Branch tamsulosin 2020-05 Yes Take by Univ ers 0.4 mg 24 1-22 mouth ity of hr capsule 11:44: daily. [address] Branch mirtazapine 2020-05- No 30mg Take 30 mg Univers 30 mg 05-13 by mouth ity of tablet 00:00: 00:00 at [place] 00 :00 bedtime. Medical Branch mirtazapine 2020-05- No 30mg Take 30 mg Univers 30 mg 05-13 by mouth ity of tablet 00:00: 00:00 at [place] 00 :00 bedtime. Medical Branch lisinopriL 2020-05 Yes Univers 20 mg 0-24 ity of tablet 00:00: [place] 00 Medical Branch lisinopriL 2020-05 Yes Univers 20 mg 0-24 ity of tablet 00:00: [place] 00 Medical Branch lisinopriL 2020-05 Yes Univers 20 mg 0-24 ity of tablet 00:00: [place] 00 [facility] Branch lisinopriL 2020-05 Yes Univers 20 mg 0-24 ity of tablet 00:00: [place] 00 [facility] Branch lisinopriL 2020-05 Yes Univers 20 mg 0-24 ity of tablet 00:00: [place] 00 [facility] Branch lisinopriL 2020-05 Yes Univers 20 mg 0-24 ity of tablet 00:00: [place] 00 [facility] Branch lisinopriL 2020-05 Yes Univers 20 mg 0-24 ity of tablet 00:00: [place] 00 [facility] Branch lisinopriL 2020-05 Yes Univers 20 mg 0-24 ity of tablet 00:00: [place] 00 [facility] Branch lisinopriL 2020-05 Yes Univers 20 mg 0-24 ity of tablet 00:00: [place] 00 [facility] Branch levothyroxi 2020-0 Yes [id number] 75ug Take 1 Univers ne 75 mcg 6-15 tablet by ity o f tablet 00:00: mouth [place] 00 every Medical morning. Branch levothyroxi 2020-0 Yes [id number] 75ug Take 1 Univers ne 75 mcg 6-15 tablet by ity o f tablet 00:00: mouth [place] [address] every Medical morning. Branch levothyroxi 2020-0 Yes [id number] 75ug Take 1 Univers ne 75 mcg 6-15 tablet by ity o f tablet 00:00: mouth [place] [address] every Medical morning. Branch levothyroxi 2021- No [id number] 75ug Take 1 Univers ne 75 mcg 6-15 - tablet by ity of tablet 00:00: 00:00 mouth [place] 00 :00 every Medical morning. Branch levothyroxi 2021- No [id number] 75ug Take 1 Univers ne 75 mcg [...] Systolic blood 2022-03-05 18:20:00 149 mm[Hg] [facility] Di[facility] blood 2022-03-05 18:20:00 87 mm[Hg] Unive [facility] Heart rate 2022-03-05 18:09:00 64 /min [facility] Body weight 2022-03-05 18:09:00 69.174 kg [facility] BMI 2022-03-05 18:09:00 19.58 kg/m2 [facility] Oxygen saturation 2022-03-05 18:09:00 98 /min [facility] [place] [facility] Arter[facility] blood Medical Br anch by Pulse oximetry Systolic blood 2021-09-21 18:05:00 170 mm[Hg] [facility] [place] Diastolic blood 2021-09-21 18:05:00 92 mm[Hg] Unive [facility] Heart rate 2021-09-21 17:56:00 52 /min [facility] Body weight 2021-09-21 17:56:00 72.031 kg [facility] BMI 2021-09-21 17:56:00 20.39 kg/m2 [facility] Oxygen saturation 2021-09-21 17:56:00 97 /min [facility] Arterial blood Medical Br anch by Pulse oximetry Procedures Procedure Date / Time Performed Performing Clinician [facility] e EXTERNAL PROVIDER 2022-03-18 06:01:00 Doctor Unassigned, No Univ [facility] POCT HEMOGLOBIN A1C 2022-03-05 18:22:00 Donita Vazquez [facility] ASSIGNMENT OF BENEFITS 2022-03-05 18:03:54 Doctor Unassigned, No General acute hospital POCT HEMOGLOBIN A1C 2021-09-21 18:06:00 Justa Childs [facility] EXTERNAL FIT DNA 2016-10-05 12:30:00 Doctor Unassigned, No Unive [facility] Encounters Start End Encounter Admission Attending Care Care Encounter Source Date/Time Date/Time Type Type Clinicians Facility Department ID 2022-07-16 Outpatient TAMIR Bourne [facility] [id number] Common 07:28:01 Soumya [id number] [facility] 2022-07-05 Outpatient TAMIR Bourne [facility] [id number] Common 08:56:01 Soumya [id number] [facility] 2022-08-13 2022-08-13 Telephone Team, [facility] JAMIE 1.2.840.114 [id number] Univers 00:00:00 00:00:00 Health TERRI [id number] [facility] 4.2.7.2.686 [place] [phone] [facility] 082 Branch 2022-03-23 2022-03-23 Telephone Justa Childs [facility] [id number] Univers 00:00:00 00:00:00 MULTISPEC 350.1.13.10 ity of [facility] 4.2.7.2.[place] [phone] [facility] AND [place] 220 Branch [facility] 2022-03-18 2022-03-18 Orders Doctor JAMIE 1.2.840.114 [id number] Univers 00:00:00 00:00:00 Only Unassigned, TERRI [id number] ity of [place] [facility] [id number] [place] [phone] [facility] 009 Branch 2022-03-10 2022-03-10 Telephone George [facility] [id number] Univers 00:00:00 00:00:[address] [facility] [employer] 350.1.13.10 it y of [facility] [id number] [place] JENA?BLEA [phone] [place] y[place] LUCAS [address] [place] MEDICAL OFFICE BUILDING 2022-03-05 2022-03-05 Outpatient R GEORGE [facility] [id number] Univers 13:00:00 13:48:48 DONITA ity of [facility] 2022-03-05 2022-03-05 Office George [facility] 1.2.840.114 [id number] Univers 13:00:00 13:48:48 Visit [facility] 350.1.13.10 it y of [place] 4.2.7.2.686 [place] JEAN?BLEA [phone] [facility] [address] MEDICAL OFFICE BUILDING 2022-03-05 2022-03-05 Orders Doctor JAMIE 1.2.840.114 [id number] Univers 00:00:00 00:00:00 Only Unassigned, TERRI 350.1.13.10 ity of [place] [facility] 4.2.7.2.686 [place] [phone] [address] 2021-09-21 2021-09-21 Outpatient R JUSTA CHILDS [facility] [id number] Univers 13:00:00 13:49:03 JUSTA CHILDS [facility] 2021-09-21 2021-09-21 Office Darline [facility] [id number] Univers 13:00:00 13:49:03 Visit HEALTH 350.1.13.10 it y of [place] 4.2.7.2.686 [place] JENA?BLEA [phone] [address] MEDICAL OFFICE [facility] 2021-09-21 2021-09-21 Patient Darline, Marr [facility] 1.2.840.114 [id number] Univers 00:00:00 00:00:00 Secure [facility] HEALTH 350.1.13.10 ity of [facility] 4.2.7.2.686 [place] JENA?BLEA [phone] [address] MEDICAL OFFICE [facility] 2021-09-14 2021-09-14 Outpatient R JUSTA CHILDS [facility] [id number] Univers 13:30:00 13:30:00 JUSTA CHILDS [facility] 2021-09-07 2021-09-07 Outpatient R AUBRIE [facility] [id number] Univers 13:30:00 13:30:00 [facility] 2021-09-07 2021-09-07 Outpatient R AUBRIE [facility] [id number] Univers 13:30:00 13:30:00 [facility] 2021-09-062021-09-06 Telephone AubrieRUST 1.2.840.114 [id number] Univers 00:00:00 00:00:00 Jared HEALTH 350.1.13.10 it y of [facility] 4.2.7.2.686 [place] JENA?BLEA [phone] [address] MEDICAL OFFICE BUILDING 2021-06-29 2021-06-29 Refill GeorgeRUST 1.2.840.114 [id number] Univers 00:00:00 00:00:00 Donita ANGLESONJA 350.1.13.10 i ty of [facility] 4.2.7.2.[place] [phone] [address] 2021-03-23 2021-03-23 Office [facility] 1.2.840.114 [id number] Univers 11:32:00 12:17:[address] 350.1.13.10 it y of [place] 4.2.7.2.686 [place] JENA?BLEA [phone] [address] OFFICE [facility] 2021-03-23 2021-03-23 Outpatient [facility] [id number] Univers 11:30:00 12:17:56 [facility] 2021-03-06 2021-03-06 Outpatient R ARLIN [facility] [id number] Univers 14:30:00 14:30:00 REJI liriano [facility] 2020-10-22 2020-10-22 Orders Doctor JAMIE 1.2.840.114 [id number] Univers 00:00:00 00:00:00 Only Unassigned, TERRI 350.1.13.10 ity of [place] [facility] 4.2.7.2.686 [place] [phone] [address] 2020-10-14 2020-10-14 Patient GeorgeRUST 1.2.840.114 [id number] Univers 00:00:00 00:00:00 Secure Msg Donita MULTISPEC 350.1.13.10 ity of [place]2.7.2.[place] C[place] [phone] [facility] AND GANDARA [address] [place] [facility] 2020-10-03 2020-10-03 Furniture Assembler And Installer 2, Adc Lab [facility] 1.2.840.114 [id number] Univers 13:06:13 13:21:13 Visit Reji Oliveros 350.1.13.10 ity of [place] Profess[place] [phone] [facility] [address] [facility] 2020-10-03 2020-10-03 Office [facility] [id number] Univers 11:13:13 12:46:52 Visit Reji Vela 350.1.13.10 i ty of [place]2.[place].2.[place] Profess[place] [phone] [facility] [address] [facility] 2020-10-03 2020-10-03 Outpatient [facility] [id number] Univers 11:00:00 11:00:00 REJI liriano of [facility] 2020-10-03 2020-10-03 Orders Doctor JAMIE 1.2.840.114 [id number] Univers 00:00:00 00:00:00 Only Unassigned, TERRI 350.1.13.10 ity of [place] [facility] 4.2.7.2.686 [place] [phone] [facility] 009 Branch 2020-10-03 2020-10-03 Telephone [facility] 1.2.840.114 [id number] Univers 00:00:00 00:00:00 Reji Vela 350.1.13.10 i ty of [place].2.[place] [phone] [facility] [address] [facility] Results Test Description Test Time Test Comments Results Result Comments Source POCT HEMOGLOBIN A1C TEST 2022-03-05 18:22:00 Test Item Value Reference Range Interpretation Comme nts POCT HBA1C (test code = 4548-4) 6.0 % 4-6 [facility] [id number] 18:22:00 Test Item Value Reference Range Interpretation Comments POCT HBA1C (test code = 4548-4) 6.0 % 4-6 [facility] [id number] 18:09:00 Test Item Value Reference Range Interpretation Comments POCT HBA1C (test code = 4548-4) 5.7 % 4-6 [facility] [id number] 18:09:00 Test Item Value Reference Range Interpretation Comments POCT HBA1C (test code = 4548-4) 5.7 % 4-6 [facility] FIT [id number] 20:54:00 Test Item Value Reference Range Interpretation [...] can be accessed at the following location: [email or web address] [email or web address].? Additional description of the Cologuard test process, warnings and precautions can be found at [email or web address]. Rx Only. Test Type: Composite algorithmic analysis of stool DNA-biomarkers with hemoglobin immunoassay.? Quantitative values of individual biomarkers are not reportable and are not associated with individual biomarker result reference ranges. Resulting Agency [facility] (CLIA #:[id number]) Specimen Collected: 10/05/16 07:30 Last Resulted: 10/16/16 15:54 Received From: [facility] Result Received: 08/13/22 12:24 Lab Interpretation Normal (test code = 58003-1) [facility]
[2022-09-20 13:15] LABS: Absolute Lymphocytes (CBC) 1.2 K/uL (0.7-4.9); Hematocrit 40.2 % (39.6-49.0); Lymphocytes % 18.4 % (15.3-44.8); MCV 93.1 fL (80-100); MPV 7.6 fL (7.6-11.3); RBC Red Blood Cell Count 4.32 M/uL (4.33-5.43)
[2022-09-20 13:24] LABS: Protime INR 0.95
--- NOTE | 2022-09-20 13:25 | RAD REPORT ---
EXAM DESCRIPTION: CT - Abdomen Pelvis Wo Contrast - 09/20/2022 1:17 pm CLINICAL HISTORY: Abdominal pain. ABD PAIN COMPARISON: <Comparisons> TECHNIQUE: CT imaging of the abdomen and pelvis was performed without contrast. Solid organ, bowel a nd vascular assessment is limited due to lack of IV and oral contrast. All CT scans are performed using dose optimization technique as appropriate and may include automated exposure control or mA/KV adjustment according to patient size. FINDINGS: The lower lung dixon are clear. The liver demonstrates small low-density lesions likely cysts but incompletely characterized. Choleli thiasis. The spleen, pancreas, adrenal glands and kidneys are within normal limits. No bowel obstruction, free air, free fluid or abscess. There is significant fecal retention throughou t the colon. The appendix is normal. Right inguinal hernia is present containing fluid. Mild lumbar degenerative changes. IMPRESSION: Significant fecal retention. Cholelithiasis. Moderate right inguinal hernia containing fluid. A limited non-contrast examination was performed as detailed.
[2022-09-20 13:30] LABS: Albumin 3.6 g/dL (3.4-5.0); Bilirubin Total 1.5 mg/dL (0.2-1.0); Potassium 3.2 mEq/L (3.5-5.1); Protein, Total 7.1 g/dL (6.4-8.2)
[2022-09-20 14:54] LABS: Specific Gravity > 1.030 (1.005-1.030); Urine Bilirubin NEGATIVE (Negative); Urine Blood Negative (Negative); Urine Clarity Clear (Clear); Urine Color Light-Yellow (Yellow); Urine Glucose 4+ (Over) (Negative); Urine Protein NEGATIVE (Negative); Urine Urobilinogen Normal (Normal); Urine pH 6.5 (5.0-7.0)
--- NOTE | 2022-09-20 15:18 | EDPHYS ---
Physician Documentation [facility] Name: Isiah Lai Age: 72 yrs Sex: Male : 1950 Arrival Date: 09/20/2022 Time: 11:27 Bed 19 Private MD: Soumya Bourne ED Physician Sebastien Martinez HPI: 09/20 13:52 This 72 yrs old Male presents to ER via Wheelchair with complaints of Back Pain. sp3 13:52 72-year-old male with a history of diabetes, hypertension, dementia, recent CVA per sp3 now presents to the ED with chief complaint low back pain and changes in urine output pattern. states that he does not have to urinate but then will follow-up with diaper she believes it is related to the back pain. Denies fever, URI symptoms, abdominal pain, chest pain, shortness of breath or any other signs or symptoms on ROS at this time. Pain is also causing patient to alter his gait due to the pain. No foot drop, numbness or tingling, or change in motor function reported.. Historical: - Allergies: 12:38 No Known Allergies; ph - PMHx: 12:38 CVA; Diabetes - NIDDM; Hypertension; Hypothyroidism; Dementia; ph - Immunization history:: Adult Immunizations unknown. - Social history:: Smoking status: Patient denies any tobacco usage or history of. ROS: 13:54 Constitutional: Negative for fever, chills, and weight loss, Eyes: Negative for injury, sp3 pain, redness, and discharge, Neck: Negative for injury, pain, and swelling, Cardiovascular: Negative for chest pain, palpitations, and edema, Respiratory: Negative for shortness of breath, cough, wheezing, and pleuritic chest pain, MS/Extremity: Negative for injury and deformity, Skin: Negative for injury, rash, and discoloration, Neuro: Negative for headache, weakness, numbness, tingling, and seizure, Psych: Negative for depression, anxiety, suicide ideation, homicidal ideation, and hallucinations, Allergy/Immunology: Negative for hives, rash, and allergies. 13:54 All other systems are negative. 13:54 Unable to obtain ROS due to Limited ROS secondary to baseline dementia. Majority of ROS from .. Exam: 13:54 Constitutional: This is a well developed, well nourished patient who is awake, alert, sp3 and in no acute distress. Head/Face: Normocephalic, atraumatic. Eyes: Pupils equal round and reactive to light, extra-ocular motions intact. Lids and lashes normal. Conjunctiva and sclera are non-icteric and not injected. Cornea within normal limits. Periorbital areas with no swelling, redness, or edema. Neck: Trachea midline, no thyromegaly or masses palpated, and no cervical lymphadenopathy. Supple, full range of motion without nuchal rigidity, or vertebral point tenderness. No Meningismus. Chest/axilla: Normal chest wall appearance and motion. Nontender with no deformity. No lesions are appreciated. Cardiovascular: Regular rate and rhythm with a normal S1 and S2. No gallops, murmurs, or rubs. Normal PMI, no JVD. No pulse deficits. Respiratory: Lungs have equal breath sounds bilaterally, clear to auscultation and percussion. No rales, rhonchi or wheezes noted. No increased work of breathing, no retractions or nasal flaring. Abdomen/GI: Soft, non-tender, with normal bowel sounds. No distension or tympany. No guarding or rebound. No evidence of tenderness throughout. MS/ Extremity: Pulses equal, no cyanosis. Neurovascular intact. Full, normal range of motion. Neuro: Awake and alert, GCS 15, oriented to person, place, time, and situation. Cranial nerves II-XII grossly intact. Motor strength 5/5 in all extremities. Sensory grossly intact. Cerebellar exam normal. Normal gait. Psych: Awake, alert, with orientation to person, place and time. Behavior, mood, and affect are within normal limits. 13:54 Neuro: No focal deficits other than dementia related memory lapse which is at baseline.. 13:55 Back: Pain to palpation along musculature of the lower back. No pain to bony sp3 examination. Range of motion is limited due to body habitus and increase gait at baseline.. Vital Signs: 12:32 BP 169 / 92; Pulse 65; Resp 18; Temp 98.7; Pulse Ox 98% on R/A; Weight 68.04 kg; Height ph 6 ft. 2 in. ; 13:25 BP 189 / 98; Pulse 65; Resp 17 S; Pulse Ox 99% on R/A; Pain 5/10; kc6 14:28 BP 176 / 86; Pulse 67; Resp 19 S; Pulse Ox 100% on R/A; kc6 15:26 BP 167 / 90; Pulse 59; Resp 19 S; Pulse Ox 100% on R/A; kc6 12:32 Body Mass Index 19.26 (68.04 kg, 187.96 cm) ph 13:25 Pain Scale: Adult kc6 MDM: 12:43 Patient medically screened. sp3 13:55 Data reviewed: vital signs, nurses notes, diagnostic data from outside facility, lab sp3 test result(s), radiologic studies. ED course: 72-year-old male with low back pain and changes in urine output. Consider musculoskeletal pain, kidney stone, UTI, aortic pathology, intestinal pathology, among others. I am not highly suspicious that this is neurologic in nature although that is a distant possibility as well. We will start with CT scan of the abdomen and pelvis, laboratory values, and urinalysis. Further disposition and work-up to be determined at that time.. 14:47 ED course: CT scan of the abdomen pelvis demonstrates significant constipation and sp3 fecal load. I believe this is the cause of patient's symptoms and back pain. Laboratory values are without significant abnormalities. Urinalysis is pending. Assuming no infection, we will safely discharge patient home with instructions for [id number] magnesium citrate and fleets enema. Patient has appointment with PCP in 2 days on Tuesday.. 09/20 12:43 Order name: CBC with Diff; Complete Time: 14:42 sp3 09/20 12:43 Order name: CMP; Complete Time: 14:42 sp3 09/20 12:43 Order name: Lipase; Complete Time: 14:42 sp3 09/20 12:43 Order name: Urinalysis w/ reflexes; Complete Time: 15:17 sp3 09/20 12:43 Order name: PT-INR; Complete Time: 14:42 sp3 09/20 12:43 Order name: CT Abd/Pelvis - Without Contrast; Complete Time: 14:42 sp3 09/20 12:43 Order name: IV Saline Lock; Complete Time: 13:08 sp3 09/20 12:43 Order name: Labs collected and sent; Complete Time: 13:08 sp3 Administered Medications: No medications were administered Disposition Summary: 09/20/22 15:17 Discharge Ordered Location: Home sp3 Condition: Stable sp3 Diagnosis - Constipation sp3 Followup: sp3 - With: Private Physician - When: Upon discharge from the Emergency Department - Reason: If symptoms return Discharge Instructions: - Discharge Summary Sheet sp3 - Constipation, Adult sp3 Forms: - Medication Reconciliation Form sp3 - Thank You Letter sp3 - Antibiotic Education sp3 - Prescription Opioid Use sp3 Signatures: Dispatcher [employer] Kenyetta Austin RN RN Sebastien Lawrence MD MD sp3
--- NOTE | 2022-09-20 15:18 | ER ---
Nurse's Notes [facility] Name: Isiah Lai Age: 72 yrs Sex: Male : 1950 Arrival Date: 09/20/2022 Time: 11:27 Bed 19 Private MD: Soumya Bourne Diagnosis: Constipation Presentation: 09/20 12:32 Chief complaint: Spouse and/or significant other states: Low back pain since last ph Tuesday, difficulty walking or standing, also reports difficulty urinating, states, " He'll try to pee and he can't but then a little later he will fill up a diaper.". Coronavirus screen: Vaccine status: Patient reports receiving the 2nd dose of the covid vaccine. Ebola Screen: No symptoms or risks identified at this time. Initial Sepsis Screen: Does the patient meet any 2 criteria? No. Patient's initial sepsis screen is negative. Does the patient have a suspected source of infection? No. Patient's initial sepsis screen is negative. Risk Assessment: Do you want to hurt yourself or someone else? Patient reports no desire to harm self or others. Onset of symptoms was September 20, 2022. 12:32 Method Of Arrival: Wheelchair ph 12:32 Acuity: DENISE 3 ph Historical: - Allergies: 12:38 No Known Allergies; ph - PMHx: 12:38 CVA; Diabetes - NIDDM; Hypertension; Hypothyroidism; Dementia; ph - Immunization history:: Adult Immunizations unknown. - Social history:: Smoking status: Patient denies any tobacco usage or history of. Screenin:08 Abuse screen: Denies threats or abuse. Denies injuries from another. Nutritional kc6 screening: No deficits noted. Tuberculosis screening: No symptoms or risk factors identified. 13:25 [facility] ED Fall Risk Assessment (Adult) History of falling in the last 3 months, kc6 including since admission Confusion or Disorientation No (0 pts) Intoxicated or Sedated No (0 pts) Impaired Gait Yes (1 pt) Mobility Assist Device Used Yes (1 pt) Altered Elimination No (0 pt) Score/Fall Risk Level 0 - 2 = Low Risk Oriented to surroundings, Maintained a safe environment, Educated pt \\T\\ family on fall prevention, incl call for assistance when getting out of bed, Assessed \\T\\ reinforced patient's understanding of fall precautions, Hourly rounding (assess needs \\T\\ fall precautionary measures) done. Assessment: 13:24 General: Appears in no apparent distress. comfortable, Behavior is calm, cooperative, kc6 appropriate for age. Pain: Complains of pain in lumbar area Pain does not radiate. Pain currently is 5 out of 10 on a pain scale. at worst was 10 out of 10 on a pain scale. Pain began 2-3 days ago. Is continuous, Alleviated by rest, Aggravated by increased activity, repositioning, Noted to be resistant to movement, Also complains of no other associated symptoms. Neuro: Nelson Agitation-Sedation Scale (RASS): 0 - Alert and Calm Level of Consciousness is awake, alert, obeys commands, Oriented to person, place, time, situation, Appropriate for age. Cardiovascular: Capillary refill < 3 seconds. Respiratory: Airway is patent Trachea midline Respiratory effort is even, unlabored, Respiratory pattern is regular, symmetrical. GI: No signs and/or symptoms were reported involving the gastrointestinal system. : No signs and/or symptoms were reported regarding the genitourinary system. EENT: No signs and/or symptoms were reported regarding the EENT system. Derm: No signs and/or symptoms reported regarding the dermatologic system. Skin is intact, Skin is pink, warm \\T\\ dry. Musculoskeletal: No signs and/or symptoms reported regarding the musculoskeletal system. Circulation, motion, and sensation intact. Capillary refill < 3 seconds, Range of motion: intact in all extremities. 14:24 Reassessment: Patient appears in no apparent distress at this time. No changes from kc6 previously documented assessment. Patient and/or family updated on plan of care and expected duration. Pain level reassessed. Patient is alert, oriented x 3, equal unlabored respirations, skin warm/dry/pink. 15:24 Reassessment: Patient appears in no apparent distress at this time. No changes from kc6 previously documented assessment. Patient and/or family updated on plan of care and expected duration. Pain level reassessed. Patient is alert, oriented x 3, equal unlabored respirations, skin warm/dry/pink. Vital Signs: 12:32 BP 169 / 92; Pulse 65; Resp 18; Temp 98.7; Pulse Ox 98% on R/A; Weight 68.04 kg; Height ph 6 ft. 2 in. ; 13:25 BP 189 / 98; Pulse 65; Resp 17 S; Pulse Ox 99% on R/A; Pain 5/10; kc6 14:28 BP 176 / 86; Pulse 67; Resp 19 S; Pulse Ox 100% on R/A; kc6 15:26 BP 167 / 90; Pulse 59; Resp 19 S; Pulse Ox 100% on R/A; kc6 12:32 Body Mass Index 19.26 (68.04 kg, 187.96 cm) ph 13:25 Pain Scale: Adult kc6 ED Course: 11:29 Patient arrived in ED. am2 11:30 Soumya Bourne FNP-C is Private Physician. am2 11:47 Sebastien Martinez MD is Attending Physician. sp3 12:38 Triage completed. ph 12:38 Arm band placed on Patient placed in an exam room. ph 13:05 Initial lab(s) drawn, by me, sent to lab. aa5 13:08 Bibi Jordan, RN is Primary Nurse. kc6 13:08 Inserted saline lock: 20 gauge in right forearm, using aseptic technique. Blood kc6 collected. 13:09 Patient has correct armband on for positive identification. Bed in low position. Call kc6 light in reach. Side rails up X2. Adult w/ patient. 13:19 CT Abd/Pelvis - Without Contrast In Process Unspecified. EDMS 14:40 Urinalysis w/ reflexes Sent. kc6 15:42 No provider procedures requiring assistance completed. IV discontinued, intact, kc6 bleeding controlled, No redness/swelling at site. Pressure dressing applied. Administered Medications: No medications were administered Medication: 15:42 VIS not applicable for this client. kc6 Outcome: 15:17 Discharge ordered by . sp3 15:42 Discharged to home via wheelchair, with significant other. kc6 15:42 Condition: stable 15:42 Discharge instructions given to patient, Instructed on discharge instructions, follow up and referral plans. Demonstrated understanding of instructions, follow-up care. 15:43 Patient left the ED. kc6 Signatures: Dispatcher [employer] EDMS Lorena Galvez, RN RN aa5 Kenyetta Napoles RN RN Vernell Ruby am2 Sebastien Martinez MD MD sp3 Bibi Jordan, RN RN kc6 Corrections: (The following items were deleted from the chart) 13:25 13:08 [facility] ED Fall Risk Assessment (Adult) History of falling in the last 3 months, kc6 including since admission No falls in past 3 months (0 pts) Confusion or Disorientation Yes (5 pts) Intoxicated or Sedated No (0 pts) Impaired Gait Yes (1 pt) Mobility Assist Device Used Yes (1 pt) Altered Elimination No (0 pt) Score/Fall Risk Level 3 or more points = High Risk Oriented to surroundings, Maintained a safe environment, Educated pt \\T\\ family on fall prevention, incl call for assistance when getting out of bed, Assessed \\T\\ reinforced patient's understanding of fall precautions, Hourly rounding (assess needs \\T\\ fall precautionary measures) done, kc6
[2022-09-20 16:29] VITALS: TEMP 98.7
[2022-09-20 16:33] VITALS: O2SAT 100
[2022-09-20 16:35] VITALS: BP 167/90
== END 2022-09-20 15:43 | disposition home or self-care (01) ==
LOC: ER 11:27
DX: K59.00 Constipation, unspecified (principal); F03.90 Unspecified dementia, unspecified severity, without behavioral disturbance, psychotic disturbance, mood disturbance, and anxiety; I10 Essential (primary) hypertension; Z86.73 Personal history of transient ischemic attack (TIA), and cerebral infarction without residual deficits
CPT/HCPCS: 36415; 74176; 80053; 81003; 83690; 85025; 85610

== ENCOUNTER 2022-09-30 10:34 | Emergency (ER) | payer OTHER, MEDICARE ==
--- OUTSIDE RECORDS SUMMARY | 2022-09-30 10:38 | XMS REPORT | Continuity of Care Document ---
:1950 Author Organization [facility] t Address [address] [place] [address] [place] [id number] Care Team Providers Name Role Phone TERE MONTEIRO Primary Care Physician Unavailable Soumya Bourne Attending Clinician Unavailable JUSTA CHILDS Attending Clinician Unavailable JUSTA CHILDS Attending Clinician Unavailable Team, [facility] Health Maintenance Attending Clinician Unavailabl e Doctor Unassigned, [place] Attending Clinician Unavailable Donita Abraham Attending Clinician [...] ity of problems problems [facility] Allergies, Adverse Reactions, Alerts Allergy Allergy Status Severity Reaction(s) Onset Inactive Treating Comm ents Source Name Type Date Date Clinician NO KNOWN Drug Active Univers ALLERGIE Class ity of S [facility] Social History Social Habit Start Date Stop Date Quantity Comments Source Exposure to 2022-02-23 2022-03-05 Not sure [facility] [place] [facility]-2 00:00:00 13:02:00 [facility] (event) [place] Alcohol intake 2021-03-23 2021-03-23 Ex-drinker [facility] 00:00:00 00:00:00 (finding) [facility] Tobacco use and 2020-10-03 2020-10-03 Smokeless tobacco Un iversity of exposure 00:00:00 00:00:00 non-user [facility] Sex Ass[birth year] At [birth year] Universit y of 00:00:00 00:00:00 [facility] Smoking Status Start Date Stop Date Source Never smoked tobacco [facility] Medications Ordered Filled Start Stop Current Ordering Indication Dosage Frequency Signature Comments Components Source Medication Medication Date Date Medication? Clinician (SIG) Name Name canaglifloz 2021-05 Yes [id number] 300mg Take 1 Univers in 1-09 tablet by ity of ([place]) 00:00: mouth in [place] 300 mg 00 the Medical tablet morning. Branch levothyroxi 2021-05 Yes [id number] 75ug Take 1 Univers ne 75 mcg 1-09 tablet by ity o f tablet 00:00: mouth [place] 00 every Medical morning. Branch metformin 2021-05 Yes [id number] 500mg Take 1 U nivers ER 500 mg 1-09 tablet by ity o f 24 hr 00:00: mouth in [place] tablet 00 the Medical morning Branch and 1 tablet in the evening. canaglifloz 2021-05 Yes [id number] 300mg Take 1 Univers in 1-09 tablet by ity of ([place]) 00:00: mouth in [place] 300 mg 00 the Medical tablet morning. Branch levothyroxi 2021-05 Yes [id number] 75ug Take 1 Univers ne 75 mcg 1-09 tablet by ity o f tablet 00:00: mouth [place] 00 every Medical morning. Branch metformin 2021-05 Yes [id number] 500mg Take 1 U nivers ER 500 mg 1-09 tablet by ity o f 24 hr 00:00: mouth in [place] tablet 00 the Medical morning Branch and 1 tablet in the evening. canaglifloz 2021-05 Yes [id number] 300mg Take 1 Univers in 1-09 tablet by ity of ([place]) 00:00: mouth in [place] 300 mg 00 the Medical tablet morning. Branch levothyroxi 2021-05 Yes [id number] 75ug Take 1 Univers ne 75 mcg 1-09 tablet by ity o f tablet 00:00: mouth [place] 00 every Medical morning. Branch metformin 2021-05 Yes [id number] 500mg Take 1 U nivers ER 500 mg 1-09 tablet by ity o f 24 hr 00:00: mouth in [place] tablet 00 the Medical morning Branch and 1 tablet in the evening. canaglifloz 2021-05 Yes [id number] 300mg Take 1 Univers in 1-09 tablet by ity of (INV[place]) 00:00: mouth in [place] 300 mg 00 the Medical tablet morning. Branch levothyroxi 2021-05 Yes [id number] 75ug Take 1 Univers ne 75 mcg 1-09 tablet by ity o f tablet 00:00: mouth [place] 00 every Medical morning. Branch metformin 2021-05 Yes [id number] 500mg Take 1 U nivers ER 500 mg 1-09 tablet by ity o f 24 hr 00:00: mouth in [place] tablet 00 the Medical morning Branch and 1 tablet in the evening. dulaglutide 2021-05 No 1.5mg inject 1.5 Univers (TRULICITY) 1-04 11-04 mg under ity of 1.5 mg/0.5 13:42: 00:00 [place] mL PnIj 31 :00 weekly. Medical Branch dulaglutide 2021-05- No 1.5mg inject 1.5 Univers (TRULICITY) 1-04 11-04 mg under ity of 1.5 mg/0.5 13:42: 00:00 [place] mL PnIj 31 :00 weekly. Medical Branch dulaglutide 2021-05 Yes [id number] Inject 1.5 Univers (TRULICITY) 1-04 mg weekly ity of 1.5 mg/0.5 00:00: [place] mL PnIj 00 Medical Branch canaglifloz 2021-05 Yes [id number] 300mg Take 1 Univers in 1-04 tablet by ity of ([place]) 00:00: mouth in [place] 300 mg 00 the Medical tablet morning. Branch dulaglutide 2021-05 Yes [id number] Inject 1.5 Univers (TRULICITY) 1-04 mg weekly ity of 1.5 mg/0.5 00:00: [place] mL PnIj 00 Medical Branch levothyroxi 2021-05 Yes [id number] 75ug Take 1 Univers ne 75 mcg 1-04 tablet by ity o f tablet 00:00: mouth [place] 00 every Medical morning. Branch metformin 2021-05 Yes [id number] 500mg Take 1 U nivers ER 500 mg 1-04 tablet by ity o f 24 hr 00:00: mouth in [place] tablet 00 the Medical morning Branch and 1 tablet in the evening. canaglifloz 2021-05 Yes [id number] 300mg Take 1 Univers in 04 tablet by ity of ([place]) 00:00: mouth in [place] 300 mg 00 the Medical tablet morning. Branch dulaglutide 2021-05 Yes [id number] Inject 1.5 Univers (TRULICITY) 1-04 mg weekly ity of 1.5 mg/0.5 00:00: [place] mL PnIj 00 [facility] Branch levothyroxi 2021-05 Yes [id number] 75ug Take 1 Univers ne 75 mcg 05-05 tablet by ity o f tablet 00:00: mouth [place] 00 every Medical morning. Branch metformin 2021-05 Yes [id number] 500mg Take 1 U nivers ER 500 mg - tablet by ity o f 24 hr 00:00: mouth in [place] tablet 00 the Medical morning Branch and 1 tablet in the evening. dulaglutide 2021-05 Yes [id number] Inject 1.5 Univers (TRULICITY) 1-04 mg weekly ity of 1.5 mg/0.5 00:00: [place] mL PnIj 00 Medical Branch dulaglutide 2021-05 Yes [id number] Inject 1.5 Univers (TRULICITY) 1-04 mg weekly ity of 1.5 mg/0.5 00:00: [place] mL PnIj 00 [facility] Branch dulaglutide 2021-05 Yes [id number] Inject 1.5 Univers (TRULICITY) 1-04 mg weekly ity of 1.5 mg/0.5 00:00: [place] mL PnIj 00 [facility] Branch canaglifloz 2021-05- No [id number] 300mg Take 1 Univers in 05-05 tablet by ity of ([place]) 00:00: 00:00 mouth [place] 300 mg 00 :00 the Medical tablet morning. Branch levothyroxi 2021-05- No [id number] 75ug Take 1 Univers ne 75 mcg 05-05 tablet by ity of tablet 00:00: 00:00 mouth [place] 00 :00 every Medical morning. Branch metformin 2021-05- No [id number] 500mg Take 1 Univers ER 500 mg [...] 21 :00 daily. Medical Branch METFORMIN Yes [id number] TAKE 1 U nivers ER 500 mg 3-01 TABLET BY ity o f 24 hr 00:00: MOUTH [place] tablet 00 TWICE Medical DAILY Branch METFORMIN Yes [id number] TAKE 1 U nivers ER 500 mg 3-01 TABLET BY ity o f 24 hr 00:00: MOUTH [place] tablet 00 TWICE Medical DAILY Branch METFORMIN Yes [id number] TAKE 1 U nivers ER 500 mg 3-01 TABLET BY ity o f 24 hr 00:00: MOUTH [place] tablet 00 TWICE Medical DAILY Branch METFORMIN 2021-0 2021- No [id number] TAKE 1 Univers ER 500 mg 3-05 12- TABLET BY ity of 24 hr 00:00: 00:00 MOUTH [place] tablet 00 :00 TWICE Medical DAILY Branch METFORMIN 2021-0 2021- No [id number] TAKE 1 Univers ER 500 mg 3-05 [...] by mouth ity of tablet 11:44: at [place] [address] bedtime. Medical Branch tamsulosin 2020-05 Yes Take by Univ ers 0.4 mg 24 1-22 mouth ity of hr capsule 11:44: daily. [address] aspirin 81 2020-05 Yes 81mg Take 81 mg U nivers mg chewable 1-22 by mouth ity of tablet 11:44: daily. [place] [address] Medical Branch dulaglutide 2020-05 Yes 1.5mg inject 1.5 Univers (TRULICITY) 1-22 mg under ity of 1.5 mg/0.5 11:44: the skin [place] mL PnIj 40 weekly. Medical Branch carvediloL 2020-05 Yes 6.25mg Take 6.25 Univers (COREG) 1-22 mg by ity of 6.25 mg 11:44: mouth 2 [place] tablet 40 (two) Medical times [place] daily with meals. donepeziL 2020-05 Yes 10mg Take 10 mg Un nupur 10 mg 1-22 by mouth ity of tablet 11:44: at [place] [address] bedtime. Medical Branch tamsulosin 2020-05 Yes Take by [facility] ers 0.4 mg 24 1-22 mouth ity of hr capsule 11:44: daily. [address] aspirin 81 2020-05 Yes 81mg Take 81 mg U nivers mg chewable 1-22 by mouth ity of tablet 11:44: daily. [address] dulaglutide 2020-05 Yes 1.5mg inject 1.5 Univers (TRULICITY) 1-22 mg under ity of 1.5 mg/0.5 11:44: the skin [place] mL PnIj 40 weekly. Medical Branch carvediloL 2020-05 Yes 6.25mg Take 6.25 Univers (COREG) 1-22 mg by ity of 6.25 mg 11:44: mouth 2 [place] tablet 40 (two) Medical times [place] daily with meals. donepeziL 2020-05 Yes 10mg Take 10 mg Un nupur 10 mg 1-22 by mouth ity of tablet 11:44: at [place] [address] bedtime. Medical Branch tamsulosin 2020-05 Yes Take by Univ ers 0.4 mg 24 1-22 mouth ity of hr capsule 11:44: daily. [address] aspirin 81 2020-05 Yes 81mg Take 81 mg U nivers mg chewable 1-22 by mouth ity of tablet 11:44: daily. [address] Branch carvediloL 2020-05 Yes 6.25mg Take 6.25 Univers (COREG) 1-22 mg by ity of 6.25 mg 11:44: mouth 2 [place] tablet 40 (two) Medical times [place] daily with meals. donepeziL 2020-05 Yes 10mg Take 10 mg Un nupur 10 mg 1-22 by mouth ity of tablet 11:44: at [place] [address] bedtime. Medical Branch tamsulosin 2020-05 Yes Take by Univ ers 0.4 mg 24 1-22 mouth ity of hr capsule 11:44: daily. [address] aspirin 81 2020-05 Yes 81mg Take 81 mg U nivers mg chewable 1-22 by mouth ity of tablet 11:44: daily. [address] carvediloL 2020-05 Yes 6.25mg Take 6.25 Univers (COREG) 1-22 mg by ity of 6.25 mg 11:44: mouth 2 [place] tablet 40 (two) Medical times [place] daily with meals. donepeziL 2020-05 Yes 10mg Take 10 mg Un nupur 10 mg 1-22 by mouth ity of tablet 11:44: at [place] [address] bedtime. Medical Branch tamsulosin 2020-05 Yes Take by Univ ers 0.4 mg 24 1-22 mouth ity of hr capsule 11:44: daily. [address] aspirin 81 2020-05 Yes 81mg Take 81 mg U nivers mg chewable 1-22 by mouth ity of tablet 11:44: daily. [address] Branch carvediloL 2020-05 Yes 6.25mg Take 6.25 Univers (COREG) 1-22 mg by ity of 6.25 mg 11:44: mouth 2 [place] tablet 40 (two) Medical times [place] daily with meals. donepeziL 2020-05 Yes 10mg Take 10 mg Un nupur 10 mg 1-22 by mouth ity of tablet 11:44: at [place] [address] bedtime. Medical Branch tamsulosin 2020-05 Yes Take by Univ ers 0.4 mg 24 1-22 mouth ity of hr capsule 11:44: daily. [address] aspirin 81 2020-05 Yes 81mg Take 81 mg U nivers mg chewable 1-22 by mouth ity of tablet 11:44: daily. [address] Branch carvediloL 2020-05 Yes 6.25mg Take 6.25 Univers (COREG) 1-22 mg by ity of 6.25 mg 11:44: mouth 2 [place] tablet 40 (two) Medical times [place] daily with meals. donepeziL 2020-05 Yes 10mg Take 10 mg Un nupur 10 mg 1-22 by mouth ity of tablet 11:44: at [place] [address] bedtime. Medical Branch tamsulosin 2020-05 Yes Take by Univ ers 0.4 mg 24 1-22 mouth ity of hr capsule 11:44: daily. [address] aspirin 81 2020-05 Yes 81mg Take 81 mg U nivers mg chewable 1-22 by mouth ity of tablet 11:44: daily. [address] carvediloL 2020-05 Yes 6.25mg Take 6.25 Univers (COREG) 1-22 mg by ity of 6.25 mg 11:44: mouth 2 [place] tablet 40 (two) Medical times [place] daily with meals. donepeziL 2020-05 Yes 10mg Take 10 mg Un nupur 10 mg 1-22 by mouth ity of tablet 11:44: at [place] [address] bedtime. Medical Branch tamsulosin 2020-05 Yes Take by Univ ers 0.4 mg 24 1-22 mouth ity of hr capsule 11:44: daily. [address] aspirin 81 2020-05 Yes 81mg Take 81 mg U nivers mg chewable 1-22 by mouth ity of tablet 11:44: daily. [address] Branch carvediloL 2020-05 Yes 6.25mg Take 6.25 Univers (COREG) 1-22 mg by ity of 6.25 mg 11:44: mouth 2 [place] tablet 40 (two) Medical times [place] daily with meals. donepeziL 2020-05 Yes 10mg Take 10 mg Un nupur 10 mg 1-22 by mouth ity of tablet 11:44: at [place] [address] bedtime. Medical Branch tamsulosin 2020-05 Yes Take by Univ ers 0.4 mg 24 1-22 mouth ity of hr capsule 11:44: daily. [address] Branch mirtazapine 2020-05- No 30mg Take 30 mg Univers 30 mg 05-13 by mouth ity of tablet 00:00: 00:00 at [place] 00 :00 bedtime. Medical Branch mirtazapine 2020-05- No 30mg Take 30 mg Univers 30 mg 05-13 by mouth ity of tablet 00:00: 00:00 at [place] 00 :00 bedtime. Medical Branch lisinopriL 2020-05 Yes Univers 20 mg 0-24 ity of tablet 00:00: [place] 00 Medical Branch lisinopriL 2020-05 Yes Univers 20 mg 0-24 ity of tablet 00:00: [place] 00 Medical Branch lisinopriL 2020-05 Yes Univers 20 mg 0-24 ity of tablet 00:00: [place] 00 [facility] Branch lisinopriL 2020-05 Yes Univers 20 mg 0-24 ity of tablet 00:00: [place] 00 [facility] Branch lisinopriL 2020-05 Yes Univers 20 mg 0-24 ity of tablet 00:00: [place] 00 [facility] Branch lisinopriL 2020-05 Yes Univers 20 mg 0-24 ity of tablet 00:00: [place] 00 [facility] Branch lisinopriL 2020-05 Yes Univers 20 mg 0-24 ity of tablet 00:00: [place] 00 [facility] Branch lisinopriL 2020-05 Yes Univers 20 mg 0-24 ity of tablet 00:00: [place] 00 [facility] Branch lisinopriL 2020-05 Yes Univers 20 mg 0-24 ity of tablet 00:00: [place] 00 [facility] Branch levothyroxi 2020-0 Yes [id number] 75ug Take 1 Univers ne 75 mcg 6-15 tablet by ity o f tablet 00:00: mouth [place] 00 every Medical morning. Branch levothyroxi 2020-0 Yes [id number] 75ug Take 1 Univers ne 75 mcg 6-15 tablet by ity o f tablet 00:00: mouth [place] [address] every Medical morning. Branch levothyroxi 2020-0 Yes [id number] 75ug Take 1 Univers ne 75 mcg 6-15 tablet by ity o f tablet 00:00: mouth [place] [address] every Medical morning. Branch levothyroxi 2021- No [id number] 75ug Take 1 Univers ne 75 mcg 6-15 - tablet by ity of tablet 00:00: 00:00 mouth [place] 00 :00 every Medical morning. Branch levothyroxi 2021- No [id number] 75ug Take 1 Univers ne 75 mcg [...] Systolic blood 2022-03-05 18:20:00 149 mm[Hg] [facility] Diastolic blood 2022-03-05 18:20:00 87 mm[Hg] Unive [facility] Heart rate 2022-03-05 18:09:00 64 /min [facility] Body weight 2022-03-05 18:09:00 69.174 kg [facility] BMI 2022-03-05 18:09:00 19.58 kg/m2 [facility] Oxygen saturation 2022-03-05 18:09:00 98 /min [facility] Br anch by Pulse oximetry Systolic blood 2021-09-21 18:05:00 170 mm[Hg] [facility] Diastolic blood 2021-09-21 18:05:00 92 mm[Hg] Unive [facility] Heart rate 2021-09-21 17:56:00 52 /min [facility] Body weight 2021-09-21 17:56:00 72.031 kg [facility] BMI 2021-09-21 17:56:00 20.39 kg/m2 [facility] Oxygen saturation 2021-09-21 17:56:00 97 /min [facility] Medical Br anch by Pulse oximetry Procedures Procedure Date / Time Performed Performing Clinician [facility] e EXTERNAL PROVIDER 2022-03-18 06:01:00 Doctor Unassigned, No Univ [facility] POCT HEMOGLOBIN A1C 2022-03-05 18:22:00 Donita Vazquez [facility] ASSIGNMENT OF BENEFITS 2022-03-05 18:03:54 Doctor Unassigned, No [facility] POCT HEMOGLOBIN A1C 2021-09-21 18:06:00 Justa Childs [facility] EXTERNAL FIT DNA 2016-10-05 12:30:00 Doctor Unassigned, No Unive [facility] Encounters Start End Encounter Admission Attending Care Care Encounter Source Date/Time Date/Time Type Type Clinicians Facility Department ID 2022-09-[address] [facility] [id number] Common 12:43:00 Soumya [id number] [facility] 2022-07-[address] [facility] [id number] Common 07:28:01 Soumya [id number] [facility] 2022-07-[address] [facility] [id number] Common 08:56:01 Soumya [id number] [facility] 2022-08-13 2022-08-13 Telephone Team, [facility] JAMIE [id number] Univers 00:00:00 00:00:00 Health TERRI [id number] it y of [facility] [id number] [place] [phone] [facility] 082 Branch 2022-03-23 2022-03-23 Telephone Justa Childs [facility] [id number] Univers 00:00:00 00:00:00 MULTISPEC 350.1.13.10 ity of [facility] [id number] [phone] [facility] AND GANDARA [address] [place] [facility] 2022-03-18 2022-03-18 Orders Doctor JAMIE [id number] [id number] Univers 00:00:00 00:00:00 Only Unassigned, TERRI 350.1.13.10 ity of [place] [facility] [id number] [place] [phone] [facility] 009 Branch 2022-03-10 2022-03-10 Telephone George [facility] [id number] Univers 00:00:00 00:00:00 Donita HEALTH 350.1.13.10 it y of [facility] [id number] [place] JENA?BLEA [phone] Nm yosi [facility] [address] [place] MEDICAL OFFICE BUILDING 2022-03-05 2022-03-05 Outpatient R GEORGE [facility] [id number] Univers 13:00:00 13:48:48 DONITA [facility] 2022-03-05 2022-03-05 Office George [facility] [id number] Univers 13:00:00 13:48:48 Visit [facility] HEALTH 350.1.13.10 it y of [place] 4.2.7.2.686 [place] JENA?BLEA [phone] [address] MEDICAL OFFICE [facility] 2022-03-05 2022-03-05 Orders Doctor JAMIE [id number] [id number] Univers 00:00:00 00:00:00 Only Unassigned, TERRI 350.1.13.10 ity of [place] [facility] 4.2.7.2.686 [place] [phone] [address] 2021-09-21 2021-09-21 Outpatient R JUSTA CHILDS [facility] [id number] Univers 13:00:00 13:49:03 [facility] 2021-09-21 2021-09-21 Office Darline [facility] 1.2.840.114 [id number] Univers 13:00:00 13:49:03 Visit HEALTH 350.1.13.10 it y of [place] 4.2.7.2.686 [place] JENA?BLEA [phone] [address] OFFICE [facility] 2021-09-21 2021-09-21 Patient Darline Marr [facility] 1.2.840.114 [id number] Univers 00:00:00 00:00:00 Secure [facility] HEALTH 350.1.13.10 ity of [place] 4.2.7.2.686 [place] JENA?BLEA [id number] [address] OFFICE [facility] 2021-09-14 2021-09-14 Outpatient R JUSTA CHILDS [facility] [id number] Univers 13:30:00 13:30:00 JUSTA CHILDS [facility] 2021-09-07 2021-09-07 Outpatient Marlen ALFRED [facility] [id number] Univers 13:30:00 13:30:00 JARED constantine [facility] 2021-09-07 2021-09-07 Outpatient R AUBRIE [facility] [id number] Univers 13:30:00 13:30:00 JARED ity [facility] 2021-09-06 2021-09-06 [facility] 1.2.840.114 [id number] Univers 00:00:00 00:00:00 JaredShopistan 350.1.13.10 it y of [facility] 4.2.7.2.686 [place] JENA?BLEA [id number] [address] MEDICAL OFFICE [facility] 2021-06-29 2021-06-29 Refill [facility] 1.2.840.114 [id number] Univers 00:00:00 00:00:00 Donita YAN 350.1.13.10 i ty of [facility] 4.2.7.2.[place] [phone] [address] 2021-03-23 2021-03-23 Office [facility] 1.2.840.114 [id number] Univers 11:32:00 12:17:[address] [facility] AltheaDx 350.1.13.10 it y of [place] 4.2.7.2.686 [place] JENA?BLEA [id number] [address] OFFICE [facility] 2021-03-23 2021-03-23 Outpatient [facility] [id number] Univers 11:30:00 12:17:56 JARED constantine [facility] 2021-03-06 2021-03-06 Outpatient R ARLIN [facility] [id number] Univers 14:30:00 14:30:00 REJI lauy [facility] 2020-10-22 2020-10-22 Orders Doctor JAMIE 1.2.840.114 [id number] Univers 00:00:00 00:00:00 Only Unassigned, TERRI 350.1.13.10 ity of [place] [facility] 4.2.7.2.686 [place] [phone] [address] 2020-10-14 2020-10-14 [facility] 1.2.840.114 [id number] Univers 00:00:00 00:00:00 Secure Msg Donita MULTISPEC 350.1.13.10 [place]y [place].2.[place] C[place] [phone] [facility] AND [facility] [address] [place] [facility] 2020-10-03 2020-10-03 Operations Research Director 2, Adc Lab [facility] 1.2.840.114 [id number] Univers 13:06:13 13:21:13 Visit Reji Oliveros 350.1.13.10 ity of [place]2.[place] [id number] [facility] [address] [facility] 2020-10-03 2020-10-03 Office [facility] [id number] [facility] 11:13:13 12:46:52 Visit Reji Vela 350.1.13.10 i ty [place] [phone] [facility] 2020-10-03 2020-10-03 [facility] [id number] Univers 11:00:00 11:00:00 REJI liriano of [facility] 2020-10-03 2020-10-03 Orders Doctor JAMIE 1.2.840.114 [id number] Univers 00:00:00 00:00:00 Only Unassigned, TERRI 350.1.13.10 ity of [place] [facility] 4.2.7.2.686 [place] [phone] [facility] 009 Branch 2020-10-03 2020-10-03 Telephone [facility] 1.2.840.114 [id number] Univers 00:00:00 00:00:00 Reji Vela 350.1.13.10 i ty [place] [phone] [facility] Results Test Description Test Time Test Comments Results Result Comments Source POCT HEMOGLOBIN A1C TEST 2022-03-05 18:22:00 Test Item Value Reference Range Interpretation Comme nts POCT HBA1C (test code = 4548-4) 6.0 % 4-6 [facility] [id number] 18:22:00 Test Item Value Reference Range Interpretation Comments POCT HBA1C (test code = 4548-4) 6.0 % 4-6 [facility] [id number] 18:09:00 Test Item Value Reference Range Interpretation Comments POCT HBA1C (test code = 4548-4) 5.7 % 4-6 [facility] [id number] 18:09:00 Test Item Value Reference Range Interpretation Comments POCT HBA1C (test code = 4548-4) 5.7 % 4-6 [facility] [id number] 20:54:00 Test Item Value Reference Range Interpretation [...] can be accessed at the following location: [email or web address] lts.? Additional description of the Cologuard test process, warnings and precautions can be found at [email or web address]. Rx Only. Test Type: Composite algorithmic analysis of stool DNA-biomarkers with hemoglobin immunoassay.? Quantitative values of individual biomarkers are not reportable and are not associated with individual biomarker result reference ranges. Resulting Agency [facility] (CLIA #:[id number]) Specimen Collected: 10/05/16 07:30 Last Resulted: 10/16/16 15:54 Received From: [facility] Result Received: 08/13/22 12:24 Lab Interpretation Normal (test code = 69338-5) [facility]
--- NOTE | 2022-09-30 13:53 | RAD REPORT ---
EXAM DESCRIPTION: MRI - Lumbar Spine Wo [place] - 09/30/2022 1:20 pm CLINICAL HISTORY: Bowel/bladder incontinence. Lower back pain COMPARISON: CT abdomen and pelvis 09/20/2022. TECHNIQUE: Multiplanar multisequence MRI of the lumbar spine, obtained without IV contrast. FINDINGS: Mild straightening of normal lumbar lordosis. Minimal spondylolisthesis at L5-S1 without s ignificant subluxation secondary to endplate and facet remodeling. Mild superior endplate compression deformity anteriorly at L3 with endplate irregularity and underlyi ng edema. Mild edema also present within the prevertebral space, suggesting acute/subacute superior e ndplate fracture. The degree of compression measures approximately 20%. This appears stable compared to the prior CT. Central wedge compression deformity along the superior endplate of L1 appears stable , with some underlying fatty marrow degenerative changes, likely chronic. No suspicious focal marrow signal. No paraspinal masses. Lobulated well-circumscribed T1 and T2 hyp erintense ovoid structure within the peripheral aspect of the right posterior paraspinous muscles at the level of L2-3 measuring 1.3 centimeter, may relate to a resolving small hematoma. Conus is normal with no clumping or thickening of the cauda equina. T12-L1 level: No significant findings. L1-2 level: No significant findings. L2-3 level: Mild broad-based posterior disc bulge. No significant canal stenosis or neural foraminal narrowing. Mild facet arthropathy. L3-4 level: No significant disc herniation or stenosis. Mild facet arthropathy. L4-5 level: Mild broad-based posterior disc bulge. Left subarticular/foraminal annular hyperintensity zone. Mild facet arthropathy. No significant canal stenosis. Mild left neural foraminal narrowing. N o central canal stenosis. L5-S1 level: Mild disc height loss. Broad-based posterior disc bulge with superimposed central disc p rotrusion. Mild facet arthropathy. No significant central canal stenosis. Bilateral mild neural selam inal narrowing worse on the left, with some encroachment upon the exiting left L5 nerve root. IMPRESSION: Acute to subacute superior endplate compression deformity at L3, with 20% loss of height . Likely resolving small hematoma within the right posterior paraspinous muscles at the L2-L3 level. Mild degenerative changes as above, without central canal stenosis. Mild bilateral neural foraminal n arrowing, most pronounced at L5-S1 worse on the left, and on the left at L4-5. Some encroachment upon the exiting left L5 nerve root is noted. Please correlate for symptoms in that distribution.
--- NOTE | 2022-09-30 14:24 | ER ---
Nurse's Notes [facility] Name: Isiah Lai Age: 72 yrs Sex: Male : 1950 Arrival Date: 09/30/2022 Time: 10:34 Bed IW1 Private MD: Soumya Bourne Diagnosis: L3 Compression Fracture;Low back pain Presentation: 09/30 10:53 Chief complaint: Spouse and/or significant other states: "He is having pain in his mb9 lower back/spine since 09/14/22. We are worried about neurological problems instead of constipation, which is what they told us last time. The constipation is relieved some. He is have nerve issues and something else is happening. He can no longer tell when he needs to pee, can't lift his head up all the way and he is weaker than usual". Coronavirus screen: Vaccine status: Patient reports receiving the 2nd dose of the covid vaccine. Ebola Screen: No symptoms or risks identified at this time. Initial Sepsis Screen: Does the patient meet any 2 criteria? No. Patient's initial sepsis screen is negative. Does the patient have a suspected source of infection? No. Patient's initial sepsis screen is negative. Risk Assessment: Do you want to hurt yourself or someone else? Patient reports no desire to harm self or others. Onset of symptoms was September 30, 2022. 10:53 Method Of Arrival: Ambulatory [facility] 10:53 Acuity: DENISE 3 mb9 Triage Assessment: 10:58 General: Appears in no apparent distress. Behavior is cooperative. Pain: Complains of mb9 pain in back. Neuro: Level of Consciousness is awake, alert, obeys commands, Oriented to person, place, time, situation, Appropriate for age Reports weakness. Respiratory: Airway is patent Respiratory effort is even, unlabored, Respiratory pattern is regular, symmetrical. : Reports incontinence, urgency, urinary frequency, Denies burning with urination. Derm: Skin is pink, warm \\T\\ dry. Musculoskeletal: Range of motion: intact in all extremities, Reports weakness in right arm, left arm, right leg and left leg. Historical: - Allergies: 10:58 No Known Allergies; mb9 - Home Meds: 10:59 levothyroxine 75 mcg tablet once [Active]; aspirin 81 mg Oral capsule daily [Active]; mb9 lisinopril 20 mg Oral tablet daily [Active]; tamulosin [Active]; atorvastatin 40 mg oral tablet once [Active]; clopidogrel 75 mg oral tablet daily [Active]; Jardiance 25 mg oral tablet once [Active]; memantine 21 mg oral Capsule, Sprinkle Ext Rel 24hr Dose Pack daily [Active]; - PMHx: 10:58 CVA; Dementia; Diabetes - NIDDM; Hypertension; Hypothyroidism; mb9 - PSHx: 10:58 None; mb9 - Immunization history:: Adult Immunizations up to date. - Social history:: Smoking status: Patient denies any tobacco usage or history of. Screenin:27 [facility] ED Fall Risk Assessment (Adult). Abuse screen: Denies threats or abuse. iw Nutritional screening: No deficits noted. Tuberculosis screening: No symptoms or risk factors identified. Vital Signs: 10:53 BP 153 / 87; Pulse 67; Resp 16; Temp 98.3; Pulse Ox 100% ; Weight 69.4 kg; Height 6 ft. mb9 2 in. ; Pain 10/10; 15:24 BP 126 / 55; Pulse 75; Resp 16; Temp 98.2; Pulse Ox 98% on R/A; iw 10:53 Body Mass Index 19.64 (69.40 kg, 187.96 cm) mb9 10:53 Pain Scale: Adult mb9 ED Course: 10:36 Patient arrived in ED. am2 10:36 Soumya Bourne FNP-C is Private Physician. am2 10:57 Triage completed. mb9 10:57 Arm band placed on. mb9 10:57 Patient has correct armband on for positive identification. iw 11:05 Arian Nieto DO is Attending Physician. ms3 13:04 MRI Lumbar Spine wo Con In Process Unspecified. EDMS 15:28 No provider procedures requiring assistance completed. iw 15:28 Patient did not have IV access during this emergency room visit. iw Administered Medications: No medications were administered Medication: 15:29 VIS not applicable for this client. iw Outcome: 14:24 Discharge ordered by MD. ms3 15:28 Condition: stable iw 15:28 Discharge instructions given to patient. iw 15:29 Discharged to home iw 15:30 Patient left the ED. iw Signatures: Dispatcher [employer] EDMS Mouna Viveros RN RN iw Vernell Finn am2 Arian Nieto DO DO ms3 Jessie Clemons, RN RN mb9 Corrections: (The following items were deleted from the chart) 15:25 15:24 BP 142 / 69; Pulse 75bpm; Resp 16bpm; Pulse Ox 98% RA; Temp 98.2F; iw iw 15: 15:24 BP 142 / 55; Pulse 75bpm; Resp 16bpm; Pulse Ox 98% RA; Temp 98.2F; iw iw 15: 15:24 BP 138 / 55; Pulse 75bpm; Resp 16bpm; Pulse Ox 98% RA; Temp 98.2F; iw iw
--- NOTE | 2022-09-30 14:25 | EDPHYS ---
Physician Documentation [facility] Name: Isiah Lai Age: 72 yrs Sex: Male : 1950 Arrival Date: 09/30/2022 Time: 10:34 Bed IW1 Private MD: Soumya Bourne ED Physician Arian Nieto HPI: 09/30 11:33 This 72 yrs old Male presents to ER via Ambulatory with complaints of Back Pain. ms3 11:33 72-year-old male with past medical history of CVA, dementia, diabetes, hypertension, ms3 hypothyroidism presents for lower back pain that has been ongoing for 3 weeks. Patient was seen 1 week ago and diagnosed with constipation after CT scan. Patient's states patient had x-ray performed on Tuesday that showed moderate fecal retention without obstruction. Patient states the pain goes up to a 10/10 at its worst and is currently a 3-4 located in his lumbar spine. Patient denies alleviating factors. Patient states the pain is worse with movement. Patient endorses urinary and bowel incontinence. Patient denies leg weakness. Patient denies fevers or chills. Historical: - Allergies: 10:58 No Known Allergies; mb9 - Home Meds: 10:59 levothyroxine 75 mcg tablet once [Active]; aspirin 81 mg Oral capsule daily [Active]; mb9 lisinopril 20 mg Oral tablet daily [Active]; tamulosin [Active]; atorvastatin 40 mg oral tablet once [Active]; clopidogrel 75 mg oral tablet daily [Active]; Jardiance 25 mg oral tablet once [Active]; memantine 21 mg oral Capsule, Sprinkle Ext Rel 24hr Dose Pack daily [Active]; - PMHx: 10:58 CVA; Dementia; Diabetes - NIDDM; Hypertension; Hypothyroidism; mb9 - PSHx: 10:58 None; mb9 - Immunization history:: Adult Immunizations up to date. - Social history:: Smoking status: Patient denies any tobacco usage or history of. ROS: 11:33 Constitutional: Negative for fever, and chills. Neck: Negative for injury, pain, and ms3 swelling, Cardiovascular: Negative for chest pain, and palpitations. Respiratory: Negative for shortness of breath, cough, wheezing, and pleuritic chest pain, Abdomen/GI: Negative for abdominal pain, nausea, vomiting, diarrhea, and constipation. 11:33 Skin: Negative for injury, rash, and discoloration. 11:33 Back: Positive for pain at rest, pain with movement. 11:33 All other systems are negative. Exam: 11:33 Constitutional: This is a well developed, well nourished patient who is awake, alert, ms3 and in no acute distress. Head/Face: Normocephalic, atraumatic. Neck: Trachea midline, no cervical lymphadenopathy. Supple, full range of motion without nuchal rigidity, or vertebral point tenderness. No Meningismus. Chest/axilla: Normal chest wall appearance and motion. Nontender with no deformity. Cardiovascular: Regular rate and rhythm with a normal S1 and S2. No gallops, murmurs, or rubs. Normal PMI, no JVD. No pulse deficits. Respiratory: Lungs have equal breath sounds bilaterally, clear to auscultation and percussion. No rales, rhonchi or wheezes noted. No increased work of breathing, no retractions or nasal flaring. Abdomen/GI: Soft, non-tender, with normal bowel sounds. No distension or tympany. No guarding or rebound. No evidence of tenderness throughout. Back: No spinal tenderness. No costovertebral tenderness. Full range of motion. Skin: Warm, dry with normal turgor. Normal color with no rashes, no lesions, and no evidence of cellulitis. Vital Signs: 10:53 BP 153 / 87; Pulse 67; Resp 16; Temp 98.3; Pulse Ox 100% ; Weight 69.4 kg; Height 6 ft. mb9 2 in. ; Pain 10/10; 15:24 BP 126 / 55; Pulse 75; Resp 16; Temp 98.2; Pulse Ox 98% on R/A; iw 10:53 Body Mass Index 19.64 (69.40 kg, 187.96 cm) mb9 10:53 Pain Scale: Adult mb9 MDM: 11:16 Patient medically screened. ms3 11:33 Differential diagnosis: chronic back pain, Metastatic Disease Neoplasm. ms3 14:24 Data reviewed: vital signs, nurses notes, radiologic studies, MRI, and as a result, I ms3 will discharge patient. Historians other than the Patient: Spouse/Significant Other: . Counseling: I had a detailed discussion with the patient and/or guardian regarding: the historical points, exam findings, and any diagnostic results supporting the discharge/admit diagnosis, radiology results, the need for outpatient follow up, to return to the emergency department if symptoms worsen or persist or if there are any questions or concerns that arise at home. Special discussion: I discussed with the patient/guardian in detail that at this point there is no indication for admission to the hospital. It is understood, however, that if the symptoms persist or worsen the patient needs to return immediately for re-evaluation. ED course: Discussed MRI results with patient, his , his daughter. They understand agree with plan. Patient followed Dr. King in 2 to 3 days. All questions were answered. Return precautions discussed include worsening symptoms, or any other concerns. On reevaluation patient is ambulatory, in no apparent distress, nontoxic-appearing, speaking full sentences. 09/30 11:18 Order name: MRI Lumbar Spine wo Con; Complete Time: 14:06 ms3 Administered Medications: No medications were administered Disposition Summary: 09/30/22 14:24 Discharge Ordered Location: Home ms3 Condition: Stable ms3 Diagnosis - L3 Compression Fracture ms3 - Low back pain ms3 Discharge Instructions: - Discharge Summary Sheet ms3 - Spinal Compression Fracture ms3 Forms: - Medication Reconciliation Form ms3 - Thank You Letter ms3 - Antibiotic Education ms3 - Prescription Opioid Use ms3 Prescriptions: - Medrol (Sylvain) 4 mg Oral Tablets, Dose Pack - take 1 tablet by ORAL route as directed - follow package instructions; 1 ms3 packet; Refills: 0, Product Selection Permitted Signatures: Dispatcher [employer] EDArian Herring DO DO ms3 Jessie Clemons, RN RN mb9
[2022-09-30 16:05] VITALS: BP 126/55; TEMP 98.2; O2SAT 98
== END 2022-09-30 15:30 | disposition home or self-care (01) ==
LOC: ER 10:34
DX: S32.030A Wedge compression fracture of third lumbar vertebra, initial encounter for closed fracture (principal); I10 Essential (primary) hypertension; F03.90 Unspecified dementia, unspecified severity, without behavioral disturbance, psychotic disturbance, mood disturbance, and anxiety
CPT/HCPCS: 72148; 99283

== ENCOUNTER 2024-04-29 10:04 | Emergency (ER) | payer OTHER, MEDICARE ==
--- OUTSIDE RECORDS SUMMARY | 2024-04-29 10:08 | XMS REPORT | Continuity of Care Document ---
Author Name Unknown Address [address] [facility] [address] [place] [address] [facility] thconnect Address [address] [facility] [address] [place] [address] Care Team Providers Care Stripper And Opaquer Apprentice Name Role Phone AYANNAYAMILKA TERE Primary Care Physician Unavailab Soumya Martinez Attending Clinician Unavailable JUSTA CHILDS Attending Clinician Unavailable JUSTA CHILDS Attending Clinician Unavailable Team, [facility] [place] Maintenance Attending Clinicia n Unavailable Doctor Unassigned, [place] Attending Clinician U Donita Stubbs Attending Clinician [phone] DONITA VAZQUEZ Attending Clinician Unavailable JARED ALFRED Attending Clinician Unavailable Jared Alfred MD Attending Clinician [phone] REJI OLIVEROS Attending Clinician Unavailabl e 2, [facility] Attending Clinician Unavailable Reji Oliveros MD Attending Clinician [phone] Payers Payer Name Policy Type Policy Number Effective Date Expirati on Date Source Problems Condition Name Condition Details Condition Category Status Onset Date Resolution Date Last Treatment Date Treating Clinician Comments Source No known active problems No known active problems Disease [facility] Abdominal pain Abdominal pain Problem Common [facility] Back pain Back pain Problem Comm on [facility] [id number] Stage 3a chronic kidney disease Problem Common [facility] [id number] Essential hypertensi on Problem [facility] [id number] Acquired hypothyroi dism Problem [facility] [id number] Speech and language deficit as late effect of cerebrovas cular accident (CVA) Problem [facility] [id number] Benign prostatic hyperplasi a with lower urinary tract symptoms Problem [facility] [id number] Type 2 diabetes mellitus with hyperglyce bhavani, without long-term current use of insulin Problem [facility] [id number] Hospital discharge follow-up Problem [facility] [id number] Hx of arterial ischemic stroke Problem [facility] [id number] 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 Problem [facility] [id number] (current) use of oral hypoglycem ic drugs Problem [facility] Unsteady gait Unsteady gait Problem [facility] [id number] Psychogeni c fecal incontinen ce Problem [facility] [id number] Functional urinary incontinen ce Problem [facility] [id number] Muscle weakness Problem [facility] [id number] Alzheimer' s disease with late onset Problem [facility] Constipati on Constipati on Problem [facility] [id number] Nocturnal hypoglycem ia due to diabetes mellitus Problem [facility] Dementia (disorder) Dementia in other diseases classified elsewhere, severe, without behavioral disturbanc e, psychotic disturbanc e, mood disturbanc e, and anxiety Problem [facility] [id number] Iron deficiency anemia secondary to inadequate dietary iron intake Problem [facility] Allergies, Adverse Reactions, Alerts Allergy Name Allergy Type Status Severity Reaction(s) Onset Date Inactive Date Treating Clinician Comments Source NO KNOWN ALLERGIE S Drug Class Active [facility] Social History Social Habit Start Date Stop Date Quantity Comments Source History of Tobacco Use [facility] Sex Assigned At [facility] Exposure to SARS-CoV-2 (event) 2022-02-23 00:00:2022-03-05 13:02:00 Not sure [facility] Alcohol intake 2021-03-23 00:00:00 2021-03-23 00:00:00 Ex-drinker (finding) [facility] Tobacco use and exposure 2020-10-03 00:00:00 2020-10-03 00:00:00 Smokeless tobacco non-user [facility] Smoking Status Start Date Stop Date Source Never Smoker [facility] Medications Ordered Medication Name Filled Medication Name Start Date Stop Date Current Medication? Ordering Clinician Indication Dosage Frequency Signature (SIG) Comments Components Source FreeStyle Ben 2 Sensor - FreeStyle Ben 2 Sensor - 4-0 -18 00:00: 00 No FreeStyle Ben 2 Sensor - FreeStyle Ben 2 [place] - FreeStyle Ben 2 [place] - 4-0 -18 00:00: 00 No FreeStyle Ben 2 [place] - FreeStyle Ben 3 [place] - FreeStyle Ben 3 [place] - 4-0 - 00:00: 00 No FreeStyle Ben 3 [place] - FreeStyle Ben 3 Plus Sensor - FreeStyle Ben 3 Plus Sensor - 4-0 -04 00:00: 00 No FreeStyle Ben 3 Plus Sensor - Glimepiride 1 MG Glimepiride 1 MG 4-23 00:00: 00 No BID Glimepirid e 1 MG canaglifloz in (INVOKANA) 300 mg tablet 2021-05 00:00: 00 Yes [id number] 300mg Take 1 tablet by mouth in the morning. [facility] metformin ER 500 mg 24 hr tablet 2021-05 00:00: 00 Yes [id number] 500mg Take 1 tablet by mouth in the morning and 1 tablet in the evening. [facility] dulaglutide (TRULICITY) 1.5 mg/0.5 mL PnIj 2021-05 13:42: 31 03-05 00:00 :00 No 1.5mg inject 1.5 mg under the skin weekly. [facility] dulaglutide (TRULICITY) 1.5 mg/0.5 mL PnIj 2021-05 00:00: 00 Yes [id number] Inject 1.5 mg weekly [facility] canaglifloz in (INVOKANA) 300 mg tablet 2021-05 00:00: 00 03-10 00:00 :00 No [id number] 300mg Take 1 tablet by mouth in the morning. [facility] levothyroxi ne 75 mcg tablet 2021-05 00:00: 00 03-10 00:00 :00 No [id number] 75ug Take 1 tablet by mouth every morning. [facility] metformin ER 500 mg 24 hr tablet 2021-05 00:00: 00 03-10 00:00 :00 No [id number] 500mg Take 1 tablet by mouth in the morning and 1 tablet in the evening. [facility] potassium chloride 10 mEq CR tablet 10-07 19:29: 21 10-07 00:00 :00 No 10meq Take 10 mEq by mouth daily. [facility] METFORMIN ER 500 mg 24 hr tablet 06-30 00:00: 00 03-05 00:00 :00 No [id number] TAKE 1 TABLET BY MOUTH TWICE DAILY [facility] aspirin 81 mg chewable tablet 2020-05 11:44: 40 Yes 81mg Take 81 mg by mouth daily. [facility] dulaglutide (TRULICITY) 1.5 mg/0.5 mL PnIj 2020-05 11:44: 40 Yes 1.5mg inject 1.5 mg under the skin weekly. [facility] donepeziL 10 mg tablet 2020-05 11:44: 40 Yes 10mg Take 10 mg by mouth at bedtime. [facility] mirtazapine 30 mg tablet 2020-05 00:00: 00 10-07 00:00 :00 No 30mg Take 30 mg by mouth at bedtime. [facility] lisinopriL 20 mg tablet 2020-05 024 00:00: 00 Yes [facility] levothyroxi ne 75 mcg tablet 10-14 00:00: 00 03-05 00:00 :00 No [id number] 75ug Take 1 tablet by mouth every morning. [facility] canaglifloz in (INVOKANA) 300 mg tablet 10-03 00:00: 00 03-05 00:00 :00 No 300mg Take 1 tablet by mouth daily. [facility] NIFEdipine ER 60 mg tablet 10-03 00:00: 00 10-07 00:00 :00 No 60mg Take 1 tablet by mouth daily. [facility] testosteron e cypionate 200 mg/mL injection 10-03 00:00: 00 10-07 00:00 :00 No 100mg 0.5 mL by Intramuscu lar route weekly. [facility] Memantine HCl ER 28 MG Memantine HCl ER 28 MG No 1{capsu le} QD Memantine HCl ER 28 MG FLUoxetine HCl 20 MG FLUoxetine HCl 20 MG No 1{capsu le} QD FLUoxetine HCl 20 MG Clopidogrel Bisulfate 75 MG Clopidogrel Bisulfate 75 MG No 1{table t} QD Clopidogre l Bisulfate 75 MG Tamsulosin HCl 0.4 MG Tamsulosin HCl 0.4 MG No 1{capsu le} QD Tamsulosin HCl 0.4 MG Levothyroxi ne Sodium 75 MCG Levothyroxi ne Sodium 75 MCG No QD Levothyrox ine Sodium 75 MCG Atorvastati n Calcium 40 MG Atorvastati n Calcium 40 MG No 1{table t} QD Atorvastat in Calcium 40 MG Multi Juan Minerals Multi Juan Minerals No Multi Juan Minerals FreeStyle Ben 14 Day Sensor - FreeStyle Ben 14 Day Sensor - No FreeStyle Ben 14 Day Sensor - Donepezil HCl 10 MG Donepezil HCl 10 MG No 1{table t_at_be dtime} BID Donepezil HCl 10 MG Mirtazapine 15 MG Mirtazapine 15 MG No 1{table t_at_be dtime} QD Mirtazapin e 15 MG Folic Acid 1 MG Folic Acid 1 MG No 1{table t} QD Folic Acid 1 MG Jardiance 25 MG Jardiance 25 MG No 1{table t_in_th e_morni ng} QD Jardiance 25 MG Zinc 50 MG Zinc 50 MG No 1{ table t} QD Zinc 50 MG CoQ-10 200 MG CoQ-10 200 MG No CoQ-10 200 MG Cinnamon 500 MG Cinnamon 500 MG No Cinnamon 500 MG Potassium Gluconate 550 (90 K) MG Potassium Gluconate 550 (90 K) MG No Potassium Gluconate 550 (90 K) MG Lisinopril 40 MG Lisinopril 40 MG No Lisinopril 40 MG Iron 325 (65 Fe) MG Iron 325 (65 Fe) MG No 1{table t} QD Iron 325 (65 Fe) MG Finasteride 5 MG Finasteride 5 MG No 1{table t} QD Finasterid e 5 MG Prolia 60 MG/ML Prolia 60 MG/ML No Prolia 60 MG/ML Carvedilol 6.25 MG Carvedilol 6.25 MG No BID Carvedilol 6.25 MG Spironolact one 25 MG Spironolact one 25 MG No Spironolac tone 25 MG Vital Signs Vital Name Observation Time Observation Value Comments S ource height 2024-02-23 13:00:00 71 [in_i] Commo n [facility] weight 2024-02-23 13:00:00 58.6 [lb_av] Com [facility] temperature 2024-02-23 13:00:00 98.2 [degF] Com [facility] bmi 2024-02-23 13:00:00 8.17 kg/m2 [facility] n [facility] oximetry 2024-02-23 13:00:00 99 % [facility] respiratory rate 2024-02-23 13:00:00 16 /min [facility] blood pressure systolic 2024-02-23 13:00:00 136 mm[Hg] [facility] blood pressure diastolic 2024-02-23 13:00:00 68 mm[Hg] Common [facility] height 2024-02-07 13:00:00 71 [in_i] Commo n [facility] weight 2024-02-07 13:00:00 155.8 [lb_av] Co mmon [facility] temperature 2024-02-07 13:00:00 97.1 [degF] Com mon [facility] bmi 2024-02-07 13:00:00 21.73 kg/m2 Comm on [facility] oximetry 2024-02-07 13:00:00 98 % Commo n [facility] respiratory rate 2024-02-07 13:00:00 15 /min [facility] blood pressure systolic 2024-02-07 13:00:00 118 mm[Hg] Common [facility] blood pressure diastolic 2024-02-07 13:00:00 62 mm[Hg] Common [facility] height 2024-01-31 14:00:00 71 [in_i] Commo n [facility] weight 2024-01-31 14:00:00 156.6 [lb_av] Co on [facility] temperature 2024-01-31 14:00:00 97.4 [degF] Com [facility] bmi 2024-01-31 14:00:00 21.84 kg/m2 Comm on [facility] oximetry 2024-01-31 14:00:00 100 % Commo n [facility] respiratory rate 2024-01-31 14:00:00 15 /min [facility] blood pressure systolic 2024-01-31 14:00:00 126 mm[Hg] Common [facility] blood pressure diastolic 2024-01-31 14:00:00 64 mm[Hg] [facility] height 2023-10-03 13:20:00 71 [in_i] Commo n [facility] weight 2023-10-03 13:20:00 146.8 [facility]-10-[facility] 13:20:00 96.3 [degF] Com [facility] bmi 2023-10-03 13:20:00 20.47 kg/m2 Comm on [facility] oximetry 2023-10-03 13:20:00 98 % Commo n [facility] respiratory rate 2023-10-03 13:20:00 15 /min [facility] blood pressure systolic 2023-10-03 13:20:00 127 mm[Hg] Common [facility] blood pressure diastolic 2023-10-03 13:20:00 64 mm[Hg] [facility] height 2023-10-03 13:20:00 71 [in_i] Commo n [facility] weight 2023-10-03 13:20:00 146.8 [lb_av] [facility] 2023-10-03 13:20:00 96.3 [degF] Com [facility] bmi 2023-10-03 13:20:00 20.47 kg/m2 Comm on [facility] oximetry 2023-10-03 13:20:00 98 % Commo n [facility] respiratory rate 2023-10-03 13:20:00 15 /min [facility] blood pressure systolic 2023-10-03 13:20:00 127 mm[Hg] [facility] blood pressure diastolic 2023-10-03 13:20:00 64 mm[Hg] [facility] height 2023-09-01 13:00:00 71 [in_i] Commo n [facility] weight 2023-09-01 13:00:00 147.6 [lb_av] Co [facility] temperature 2023-09-01 13:00:00 97.6 [degF] Com [facility] bmi 2023-09-01 13:00:00 20.58 kg/m2 Comm on [facility] oximetry 2023-09-01 13:00:00 98 % Commo n [facility] respiratory rate 2023-09-01 13:00:00 16 /min Common [facility] blood pressure systolic 2023-09-01 13:00:00 116 mm[Hg] Common [facility] blood pressure diastolic 2023-09-01 13:00:00 54 mm[Hg] [facility] height 2023-08-23 14:40:00 71 [in_i] Commo n [facility] weight 2023-08-23 14:40:00 142.8 [lb_av] Co mmon [facility] temperature 2023-08-23 14:40:00 98.7 [degF] Com mon [facility] bmi 2023-08-23 14:40:00 19.91 kg/m2 Comm on [facility] oximetry 2023-08-23 14:40:00 97 % Commo n [facility] respiratory rate 2023-08-23 14:40:00 16 /min [facility] blood pressure systolic 2023-08-23 14:40:00 133 mm[Hg] Common [facility] blood pressure diastolic 2023-08-23 14:40:00 62 mm[Hg] [facility] height 2023-08-04 13:00:00 71 [in_i] Commo n [facility] weight 2023-08-04 13:00:00 148.6 [lb_av] Co mmon [facility] temperature 2023-08-04 13:00:00 98.3 [degF] Com mon [facility] bmi 2023-08-04 13:00:00 20.72 kg/m2 Comm on [facility] oximetry 2023-08-04 13:00:00 100 % Commo n [facility] respiratory rate 2023-08-04 13:00:00 16 /min Common [facility] blood pressure systolic 2023-08-04 13:00:00 114 mm[Hg] [facility] blood pressure diastolic 2023-08-04 13:00:00 62 mm[Hg] [facility] height 2023-07-04 15:00:00 71 [in_i] Commo n [facility] weight 2023-07-04 15:00:00 139.6 [lb_av] Co mmon [facility] temperature 2023-07-04 15:00:00 97.4 [degF] Com mon [facility] bmi 2023-07-04 15:00:00 19.47 kg/m2 Comm on [facility] oximetry 2023-07-04 15:00:00 100 % Commo n [facility] respiratory rate 2023-07-04 15:00:00 15 /min [facility] blood pressure systolic 2023-07-04 15:00:00 126 mm[Hg] [facility] blood pressure diastolic 2023-07-04 15:00:00 68 mm[Hg] Common [facility] height 2023-05-03 13:00:00 71 [in_i] Commo n [facility] weight 2023-05-03 13:00:00 153 [lb_av] Comm on [facility] temperature 2023-05-03 13:00:00 98.1 [degF] Com mon [facility] bmi 2023-05-03 13:00:00 21.34 kg/m2 Comm on [facility] oximetry 2023-05-03 13:00:00 99 % Commo n [facility] respiratory rate 2023-05-03 13:00:00 16 /min Common [facility] blood pressure systolic 2023-05-03 13:00:00 134 mm[Hg] [facility] blood pressure diastolic 2023-05-03 13:00:00 66 mm[Hg] [facility] height 2023-02-02 10:00:00 72.00 [in_i] Com [facility] weight 2023-02-02 10:00:00 150.2 [lb_av] Co [facility] temperature 2023-02-02 10:00:00 97.2 [degF] Com [facility] bmi 2023-02-02 10:00:00 20.37 kg/m2 Comm on [facility] oximetry 2023-02-02 10:00:00 97 % Commo n [facility] respiratory rate 2023-02-02 10:00:00 16 /min [facility] blood pressure systolic 2023-02-02 10:00:00 142 mm[Hg] Common [facility] blood pressure diastolic 2023-02-02 10:00:00 86 mm[Hg] [facility] height 2022-09-22 10:20:00 72.00 [in_i] Com [facility] weight 2022-09-22 10:20:00 151.0 [lb_av] Co [facility] temperature 2022-09-22 10:20:00 98.0 [degF] Com [facility] bmi 2022-09-22 10:20:00 20.48 kg/m2 Comm on [facility] oximetry 2022-09-22 10:20:00 98 % Commo n [facility] respiratory rate 2022-09-22 10:20:00 16 /min Common [facility] blood pressure systolic 2022-09-22 10:20:00 150 mm[Hg] Common [facility] blood pressure diastolic 2022-09-22 10:20:00 92 mm[Hg] [facility] height 2022-09-22 10:00:00 72.00 [in_i] Com [facility] weight 2022-09-22 10:00:00 151.0 [lb_av] Co mmon [facility] temperature 2022-09-22 10:00:00 98.0 [degF] Com [facility] bmi 2022-09-22 10:00:00 20.48 kg/m2 Comm on [facility] oximetry 2022-09-22 10:00:00 98 % Commo n [facility] respiratory rate 2022-09-22 10:00:00 16 /min Common [facility] blood pressure systolic 2022-09-22 10:00:00 150 mm[Hg] [facility] blood pressure diastolic 2022-09-22 10:00:00 92 mm[Hg] [facility] height 2022-09-01 15:20:00 72.00 [in_i] Com [facility] weight 2022-09-01 15:20:00 163.0 [lb_av] Co [facility] temperature 2022-09-01 15:20:00 97.9 [degF] Com [facility] bmi 2022-09-01 15:20:00 22.1 kg/m2 Commo n [facility] oximetry 2022-09-01 15:20:00 99 % Commo n [facility] respiratory rate 2022-09-01 15:20:00 16 /min Common [facility] blood pressure systolic 2022-09-01 15:20:00 157 mm[Hg] Common [facility] blood pressure diastolic 2022-09-01 15:20:00 84 mm[Hg] Common [facility] height 2022-07-15 08:40:00 72.00 [in_i] Com [facility] weight 2022-07-15 08:40:00 155.4 [lb_av] Co [facility] temperature 2022-07-15 08:40:00 97.5 [degF] Com [facility] bmi 2022-07-15 08:40:00 21.07 kg/m2 Comm on [facility] oximetry 2022-07-15 08:40:00 97 % Commo n [facility] respiratory rate 2022-07-15 08:40:00 18 /min Common [facility] blood pressure systolic 2022-07-15 08:40:00 154 mm[Hg] [facility] blood pressure diastolic 2022-07-15 08:40:00 88 mm[Hg] [facility] height 2022-07-05 09:00:00 72.00 [in_i] Com [facility] weight 2022-07-05 09:00:00 154.2 [lb_av] Co mmon [facility] temperature 2022-07-05 09:00:00 97.3 [degF] Com [facility] bmi 2022-07-05 09:00:00 20.91 kg/m2 Comm on [facility] oximetry 2022-07-05 09:00:00 96 % Commo n [facility] respiratory rate 2022-07-05 09:00:00 16 /min [facility] blood pressure systolic 2022-07-05 09:00:00 132 mm[Hg] [facility] blood pressure diastolic 2022-07-05 09:00:00 82 mm[Hg] [facility] Systolic blood pressure 2022-03-05 18:20:00 149 mm[Hg] [facility] Diastolic blood pressure 2022-03-05 18:20:00 87 mm[Hg] [facility] Heart rate 2022-03-05 18:09:00 64 /min [facility] 2022-03-05 18:09:00 69.174 kg [facility] BMI 2022-03-05 18:09:00 19.58 kg/m2 [facility] Oxygen saturation in Arterial blood by Pulse oximetry 2022-03-05 18:09:00 98 /min [facility] Diastolic blood pressure 2021-09-21 18:05:00 92 mm[Hg] [facility] Systolic blood pressure 2021-09-21 18:05:00 170 mm[Hg] [facility] Heart rate 2021-09-21 17:56:00 52 /min Unive [facility] Body weight 2021-09-21 17:56:00 72.031 kg [facility] BMI 2021-09-21 17:56:00 20.39 kg/m2 [facility] Oxygen saturation in Arterial blood by Pulse oximetry 2021-09-21 17:56:00 97 /min [facility] Procedures Procedure Date / Time Performed Performing Clinicia n Source EXTERNAL PROVIDER RECORDS 2022-03-18 06:01:00 Doctor Unassigned, [place]ezi [facility] POCT HEMOGLOBIN A1C TEST 2022-03-05 18:22:00 Donita Vazquez [facility] ASSIGNMENT OF BENEFITS 2022-03-05 18:03:54 Docto r Unassigned, [place] [facility] POCT HEMOGLOBIN A1C TEST 2021-09-21 18:06:00 Justa Childs [facility] EXTERNAL FIT DNA 2016-10-05 12:30:00 Doctor Unas signed, [place] [facility] Encounters Start Date/Time End Date/Time Encounter Type Admission Type Attending Clinicians Care Facility Care Department Encounter ID Source 2024-02-14 13:29[id number] 2023-08-31 13:47:00 Outpatient [address]ne [facility] [id number] [facility] 2023-07-11 12:01:01 [facility] [id number] [facility] 2022-09-21 12:43:00 Outpatient Soumya Bourne [facility] [id number] [facility] 2022-07-16 07:28:01 Outpatient Soumya Bourne [facility] [id number] [facility] 2022-07-05 08:56:01 Outpatient Soumya Bourne [facility] [id number] [facility] 2024-04-09 00:00:00 2024-04-09 00:00:00 (TEL) [facility] [id number] [facility] 2024-04-04 00:00:00 2024-04-04 00:00:00 (WEB) [facility] [id number] [facility] 2024-04-04 00:00:00 2024-04-04 00:00:00 (WEB) [facility] [id number] [facility] 2024-02-27 00:00:00 2024-02-27 00:00:00 (WEB) [facility] [id number] [facility] 2024-02-23 00:00:00 2024-02-23 00:00:00 OFFICE VISIT ESTAB PT LEVEL 3 [facility] [id number] [facility] 2024-02-13 00:00:00 2024-02-13 00:00:00 (TEL) [facility] [id number] [facility] 2024-02-07 00:00:00 2024-02-07 00:00:00 OFFICE VISIT ESTAB PT LEVEL 4 [facility] [id number] [facility] 2024-02-07 00:00:00 2024-02-07 00:00:00 (TEL) [facility] [id number] [facility] 2024-01-31 00:00:00 2024-01-31 00:00:00 OFFICE VISIT ESTAB PT LEVEL 4 [facility] [id number] [facility] 2024-01-18 00:00:00 2024-01-18 00:00:00 (WEB) [facility] [id number] [facility] 2024-01-17 00:00:00 2024-01-17 00:00:00 (WEB) [facility] [id number] [facility] 2024-01-16 00:00:00 2024-01-16 00:00:00 (WEB) [facility] [id number] [facility] 2024-01-04 00:00:00 2024-01-04 00:00:00 (TEL) [facility] [id number] [facility] 2023-12-30 00:00:00 2023-12-30 00:00:00 (TEL) [facility] [id number] [facility] 2023-12-18 00:00:00 2023-12-18 00:00:00 (WEB) [facility] [id number] [facility] 2023-12-02 00:00:00 2023-12-02 00:00:00 (WEB) [facility] [id number] [facility] 2023-11-17 00:00:00 2023-11-17 00:00:00 (WEB) STLMLC STLMLC [id number] [facility] 2023-11-16 00:00:00 2023-11-16 00:00:00 (WEB) STLMLC STLMLC [id number] [facility] 2023-11-02 00:00:00 2023-11-02 00:00:00 (WEB) STLMLC STLMLC [id number] [facility] 2023-11-01 00:00:00 2023-11-01 00:00:00 (WEB) STLMLC STLMLC [id number] [facility] 2023-10-20 00:00:00 2023-10-20 00:00:00 (TEL) STLMLC STLMLC [id number] [facility] 2023-10-19 00:00:00 2023-10-19 00:00:00 (WEB) STLMLC STLMLC [id number] [facility] 2023-10-19 00:00:00 2023-10-19 00:00:00 (TEL) STLMLC STLMLC [id number] [facility] 2023-10-12 00:00:00 2023-10-12 00:00:00 (WEB) STLMLC STLMLC [id number] [facility] 2023-10-03 00:00:00 2023-10-03 00:00:00 OFFICE VISIT ESTAB PT LEVEL 4 STLMLC STLMLC [id number] [facility] 2023-10-03 00:00:00 2023-10-03 00:00:00 SUB ANNUAL [facility] WELLNESS VISIT STLMLC STLMLC [id number] [facility] 2023-09-29 00:00:00 2023-09-29 00:00:00 (TEL) STLMLC STLMLC [id number] [facility] 2023-09-15 00:00:00 2023-09-15 00:00:00 (TEL) STLMLC STLMLC [id number] [facility] 2023-09-08 00:00:00 2023-09-08 00:00:00 (TEL) STLMLC STLMLC [id number] [facility] 2023-09-07 00:00:00 2023-09-07 00:00:00 (TEL) STLMLC STLMLC [id number] [facility] 2023-09-06 00:00:00 2023-09-06 00:00:00 (WEB) STLMLC STLMLC [id number] [facility] 2023-09-01 00:00:00 2023-09-01 00:00:00 OFFICE VISIT ESTAB PT LEVEL 4 STLMLC STLMLC [id number] [facility] 2023-08-23 00:00:2023-08-23 00:00:00 OFFICE VISIT ESTAB PT LEVEL 4 STLMLC STLMLC [id number] [facility] 2023-08-04 00:00:00 2023-08-04 00:00:00 OFFICE VISIT ESTAB PT LEVEL 4 STLMLC STLMLC [id number] [facility] 2023-07-13 00:00:00 2023-07-13 00:00:00 (WEB) STLMLC STLMLC [id number] [facility] 2023-07-12 00:00:00 2023-07-12 00:00:00 (TEL) STLMLC STLMLC [id number] [facility] 2023-07-09 00:00:00 2023-07-09 00:00:00 (WEB) STLMLC STLMLC [id number] [facility] 2023-07-08 00:00:00 2023-07-08 00:00:00 (TEL) STLMLC STLMLC [id number] [facility] 2023-07-04 00:00:00 2023-07-04 00:00:00 OFFICE VISIT ESTAB PT LEVEL 3 STLMLC STLMLC [id number] [facility] 2023-06-21 00:00:00 2023-06-21 00:00:00 (TEL) STLMLC STLMLC [id number] [facility] 2023-06-07 00:00:00 2023-06-07 00:00:00 (TEL) STLMLC STLMLC [id number] [facility] 2023-05-23 00:00:00 2023-05-23 00:00:00 (WEB) STLMLC STLMLC [id number] [facility] 2023-05-20 00:00:00 2023-05-20 00:00:00 (TEL) STLMLC STLMLC [id number] [facility] 2023-05-03 00:00:00 2023-05-03 00:00:00 OFFICE VISIT ESTAB PT LEVEL 3 STLMLC STLMLC [id number] [facility] 2023-02-02 00:00:00 2023-02-02 00:00:00 OFFICE VISIT ESTAB PT LEVEL 3 STLMLC STLMLC [id number] [facility] 2023-02-02 00:00:00 2023-02-02 00:00:00 (TEL) STLMLC STLMLC [id number] [facility] 2022-12-14 00:00:00 2022-12-14 00:00:00 (WEB) STLMLC STLMLC [id number] [facility] 2022-12-14 00:00:00 2022-12-14 00:00:00 (WEB) STLMLC STLMLC [id number] [facility] 2022-12-01 00:00:00 2022-12-01 00:00:00 (TEL) STLMLC STLMLC [id number] [facility] 2022-10-12 00:00:00 2022-10-12 00:00:00 (WEB) STLMLC STLMLC [id number] [facility] 2022-10-02 00:00:00 2022-10-02 00:00:00 (WEB) STLMLC STLMLC [id number] [facility] 2022-10-01 00:00:00 2022-10-01 00:00:00 (WEB) STLMLC STLMLC [id number] [facility] 2022-09-26 00:00:00 2022-09-26 00:00:00 (WEB) STLMLC STLMLC [id number] [facility] 2022-09-22 00:00:00 2022-09-22 00:00:00 SUB ANNUAL [facility] WELLNESS VISIT STLMLC STLMLC [id number] [facility] 2022-09-22 00:00:00 2022-09-22 00:00:00 OFFICE VISIT ESTAB PT LEVEL 4 STLMLC STLMLC [id number] [facility] 2022-09-20 00:00:00 2022-09-20 00:00:00 (TEL) STLMLC STLMLC [id number] [facility] 2022-09-01 00:00:00 2022-09-01 00:00:00 (HOSP F/U) Hospital Follow Up STLMLC STLMLC [id number] [facility] 2022-08-30 00:00:00 2022-08-30 00:00:00 (TEL) STLMLC STLMLC [id number] [facility] 2022-08-13 00:00:00 2022-08-13 00:00:00 Telephone Team, [facility] 1.840.114 350.1.13.10 4.2.7.2.686 [id number] [facility] 2022-07-15 00:00:00 2022-07-15 00:00:00 OFFICE VISIT ESTAB PT LEVEL 4 STLMLC STLMLC [id number] [facility] 2022-07-05 00:00:00 2022-07-05 00:00:00 OFFICE VISIT NEW PT LEVEL 3 STLMLC STLMLC [id number] [facility] 2022-03-23 00:00:00 2022-03-23 00:00:00 Telephone Justa Childs [facility] 1.840.114 350.1.13.10 4.2.7.2.686 [id number] [facility] 2022-03-18 00:00:00 2022-03-18 00:00:00 Orders Only Doctor Unassigned, [place] [facility] 1..840.114 350.1.13.10 4.2.7.2.686 [id number] [facility] 2022-03-10 00:00:00 2022-03-10 00:00:00 Telephone [facility] 1.84.114 350.1.13.10 4.2.7.2.686 [id number] [facility] 2022-03-05 13:00:00 2022-03-05 13:48:48 [facility] 1.84.114 350.1.13.10 4.2.7.2.686 [id number] [facility] 2022-03-05 13:00:00 2022-03-05 13:48:48 [facility] [id number] 2022-03-05 00:00:00 2022-03-05 00:00:00 Orders Only Doctor Unassigned, [place] [facility] 1.84.114 350.1.13.10 4.2.7.2.686 [id number] [facility] 2021-09-21 13:00:00 2021-09-21 13:49:03 Outpatient R JUSTA CHILDS Y[facility] [id number] [facility] 2021-09-21 13:00:00 2021-09-21 13:49:03 Office Visit Justa Childs [facility] 1.840.114 350.1.13.10 4.2.7.2.686 [id number] [facility] 2021-09-21 00:00:00 2021-09-21 00:00:00 Patient Secure Msg DarlineJusta montes [facility] 1.2840.114 350.1.13.10 4.2.7.2.686 [id number] [facility] 2021-09-14 13:30:00 2021-09-14 13:30:00 Outpatient R JUSTA CHILDS YU [facility] [id number] [facility] 2021-09-07 13:30:00 2021-09-07 13:30:00 Outpatient R AUBRIE [facility] [id number] [facility] 2021-09-07 13:30:00 2021-09-07 13:30:00 Outpatient R AUBRIE [facility] [id number] [facility] 2021-09-06 00:00:00 2021-09-06 00:00:00 Telephone [facility] 1..840.114 350.1.13.10 4.2.7.2.686 [id number] [facility] 2021-06-29 00:00:00 2021-06-29 00:00:00 [facility] 1..840.114 350.1.13.10 4.2.7.2.686 [id number] [facility] 2021-03-23 11:32:00 2021-03-23 12:17:56 Office Visit [facility] 1..840.114 350.1.13.10 4.2.7.2.686 [id number] [facility] 2021-03-23 11:30:00 2021-03-23 12:17:56 Outpatient R AUBRIE [facility] [id number] [facility] 2021-03-06 14:30:00 2021-03-06 14:30:00 Outpatient REJI KENT [facility] [id number] [facility] 2020-10-22 00:00:00 2020-10-22 00:00:00 Orders Only Doctor Unassigned, [place] [facility] 1.2.840.114 350.1.13.10 4.2.7.2.686 [id number] [facility] 2020-10-14 00:00:00 2020-10-14 00:00:00 Patient Secure Donita Leonard [facility] 1.2840.114 350.1.13.10 4.2.7.2.686 [id number] [facility] 2020-10-03 13:06:13 2020-10-03 13:21:13 Lusterer Visit 2, Adc Lab Reji Oliveros [facility] 1.2.840.114 350.1.13.10 4.2.7.2.686 [id number] [facility] 2020-10-03 11:13:13 2020-10-03 12:46:52 Office Visit Reji Oliveros [facility] 1.2.840.114 350.1.13.10 4.2.7.2.686 [id number] [facility] 2020-10-03 11:00:00 2020-10-03 11:00:00 Outpatient R REJI OLIVEROS [facility] [id number] [facility] 2020-10-03 00:00:00 2020-10-03 00:00:00 Orders Only Doctor Unassigned, [place] [facility] 1.2.840.114 350.1.13.10 4.2.7.2.686 [id number] [facility] 2020-10-03 00:00:00 2020-10-03 00:00:00 Telephone Reji Oliveros [facility] 1.2.840.114 350.1.13.10 4.2.7.2.686 [id number] [facility] Results Test Description Test Time Test Comments Results Result Co mments Source HEMOGLOBIN [id number] 00:00:00* Test Item Value Reference Range Interpretation Comme nts A1C (test code = 4548-4) 7.4 POCT HEMOGLOBIN A1C [id number] 18:22:00* Test Item Value Reference Range Interpretation Comme nts POCT HBA1C (test code = 4548-4) 6.0 % 4-6 [facility] [id number] 18:22:00* Test Item Value Reference Range Interpretation Comme nts POCT HBA1C (test code = 4548-4) 6.0 % 4-6 [facility] [id number] 18:09:00* Test Item Value Reference Range Interpretation Comme nts POCT HBA1C (test code = 4548-4) 5.7 % 4-6 [facility] A1C [id number] 18:09:00* Test Item Value Reference Range Interpretation Comme nts POCT HBA1C (test code = 4548-4) 5.7 % 4-6 [facility] [id number] 20:54:00* Test Item Value Reference Range Interpretation Comme nts LIZY (test code = LIZY) Please see [...] can be accessed at the following location: [email or web address] lts.? Additional description of the Cologuard test process, warnings and precautions can be found at [email or web address]. Rx Only. Test Type: Composite algorithmic analysis of stool DNA-biomarkers with hemoglobin immunoassay.? Quantitative values of individual biomarkers are not reportable and are not associated with individual biomarker result reference ranges. Resulting Agency [employer] (CLIA #:[id number]) Specimen Collected: 10/05/16 07:30 Last Resulted: 10/16/16 15:54 Received From: [employer] Result Received: 08/13/22 12:24 Lab Interpretation (test code = 91946-6) Normal [facility]
[2024-04-29 10:43] LABS: Absolute Basophils 0.1 K/uL (0-0.5); Absolute Eosinophils 0.2 K/uL (0-0.5); Absolute Lymphocytes (CBC) 1.4 K/uL (0.7-4.9); Absolute Monocytes 0.5 K/uL (0.1-1.3); Absolute Neutrophil 4.5 K/uL (1.8-8.0); Basophils % 0.9 % (0-1.3); Eosinophils % 2.7 % (0-4.4); Hematocrit 30.2 % (39.6-49.0); Hemoglobin 9.5 g/dL (13.6-17.9); Lymphocytes % 21.4 % (15.3-44.8); MCH 27.5 pg (27.0-35.0); MCHC 31.5 g/dL (32.0-36.0); MCV 87.2 fL (80-100); MPV 7.6 fL (7.6-11.3); Monocytes % 8.2 % (3.3-12.3); Neutrophils % 66.8 % (41.7-73.7); Platelets 153 thou/uL (152-406); RBC Red Blood Cell Count 3.46 M/uL (4.33-5.43); Red Cell Distribution Width 19.2 % (12.1-15.2)
[2024-04-29 10:53] LABS: PT Prothrombin Time 12.8 SECONDS (9.4-12.5); PTT, Activated Partial Thromb 29.6 SECONDS (24.3-36.9); Protime INR 1.15
[2024-04-29] MEDS ORDERED: NA CHLORIDE 0.9% 250 ML ONE (10:58)
[2024-04-29] MEDS ORDERED: PANTOPRAZOLE 40 MG INJ ONE (10:58)
[2024-04-29 11:00] LABS: Albumin 2.8 g/dL (3.4-5.0); Anion Gap 9.1 mEq/L (5.0-15.0); Bilirubin Total 0.6 mg/dL (0.2-1.0); Globulin 2.9 g/dL (2.3-3.5); Potassium 4.1 mEq/L (3.5-5.1); Protein, Total 5.7 g/dL (6.4-8.2)
--- NOTE | 2024-04-29 12:13 | RAD REPORT ---
EXAMINATION: CT ABDOMEN AND PELVIS WITH AND WITHOUT CONTRAST CLINICAL INDICATION: Male, 73 years old.gi bleed TECHNIQUE: CT abdomen and pelvis was performed before and after the administration of IV contrast as per department protocol. Axial, sagittal and coronal reconstructions were obtained. One or more of the following dose reduction techniques were used: Automated exposure control, adjustment of the mA a nd/or kV according to patient size, and/or iterative reconstruction. Unless otherwise specified, incidental findings do not require dedicated imaging follow-up. [id number]. COMPARISON: 09/20/2022 FINDINGS: LOWER CHEST: No acute process identified.No significant pericardial effusion. Multivessel coronary ar shanna calcifications.Mild circumferential thickening of the distal esophagus which could reflect esophagitis. UPPER GI: No significant abnormality. LIVER: Hepatic steatosis. Benign appearing and/or stable lesions are identified. No suspicious mass. GALLBLADDER/BILE DUCTS: Cholelithiasis without CT evidence of acute cholecystitis.? PANCREAS: No mass, ductal dilation, or ulises-pancreatic fluid. SPLEEN: Unremarkable. ADRENALS: No adrenal masses. KIDNEYS AND URETERS: No hydronephrosis.No suspicious renal mass. ABDOMINAL AORTA AND OTHER VESSELS: Moderate atherosclerotic changes without aortic aneurysm. PERITONEUM: No abnormal free fluid. No free air. LYMPH NODES: No pathologic lymphadenopathy. ABDOMINAL WALL: Unremarkable SMALL BOWEL/COLON: No evidence of active gastrointestinal bleeding. Masslike thickening in the ascend ing colon concerning for neoplasm. There is also some wall thickening at the ascending and transverse colon that could reflect a colitis.Nonvisualized appendix but no secondary signs of acute appendicitis. Mild diverticulosis without diverticulitis. URINARY BLADDER: Underdistended but grossly unremarkable. REPRODUCTIVE ORGANS: No pathologic process. MUSCULOSKELETAL: L3 kyphoplasty. No acute fracture. Remote left-sided rib fractures. ADDITIONAL FINDINGS: None. IMPRESSION: No evidence of active gastrointestinal bleeding. Colonic mass suspected at the ascending colon. Recom mend colonoscopy for further evaluation. There also some ascending wall thickening in transverse wall thickening could reflect a coexisting colitis.
--- NOTE | 2024-04-29 12:58 | EDPHYS ---
Physician Documentation [facility] Name: Isiah Lai Age: 73 yrs Sex: Male : 1950 Arrival Date: 04/29/2024 Time: 10:04 Bed 7 Private MD: ED Physician Judson Burden HPI: 04/29 11:34 This 73 yrs old Male presents to ER via EMS with complaints of Syncope. rn 11:34 The patient has experienced near-syncope. Onset: The symptoms/episode began/occurred rn just prior to arrival. Associated injury: The patient did not suffer any apparent associated injury. Current symptoms: Generalized weakness. The patient has not experienced similar symptoms in the past. Patient reports feeling generalized weakness. Spouse reports large bloody bowel movement with clot, dark red, and shower that was followed by a near syncopal episode. No injury from fall. Does take Plavix. No hematemesis. Patient denies pain. Historical: - Allergies: 10:08 No Known Allergies; bp - Home Meds: 10:36 levothyroxine 75 mcg tablet daily [Active]; folic acid 1 mg oral tablet daily [Active]; iw lisinopril 40 mg oral tablet daily [Active]; clopidogrel 75 mg Oral tablet daily [Active]; tamsulosin 0.4 mg oral capsule daily [Active]; memantine 28 mg oral Capsule, Sprinkle Ext Rel 24hr Dose Pack every 24 hours [Active]; Jardiance 25 mg Oral tablet daily [Active]; glimepiride 1 mg oral tablet daily [Active]; finasteride 5 mg oral tablet daily [Active]; donepezil 10 mg oral tablet every day at bedtime [Active]; carvedilol 6.25 mg oral tablet 2 times per day [Active]; quetiapine 25 mg oral tablet once at bedtime [Active]; mirtazapine 15 mg Oral tablet every day at bedtime [Active]; Prolia 60 mg/mL subcutaneous Syringe every 6 months [Active]; - PMHx: 10:08 CVA; Dementia; Diabetes - NIDDM; Hypertension; Hypothyroidism; bp - Immunization history:: Adult Immunizations up to date. - Infectious Disease History:: Denies. - Social history:: Smoking status: Patient denies any tobacco usage or history of. - Family history:: not pertinent. - Hospitalizations: : No recent hospitalization is reported. ROS: 11:34 Constitutional: Negative for fever, chills, and weight loss, Cardiovascular: Negative rn for chest pain, palpitations, and edema, Respiratory: Negative for shortness of breath, cough, wheezing, and pleuritic chest pain, Abdomen/GI: Negative for abdominal pain, positive for bloody diarrhea MS/Extremity: Negative for injury and deformity, Neuro: Positive for generalized weakness Exam: 11:34 Constitutional: Pale, awake, appears weak Head/Face: Normocephalic, atraumatic. roller turner: Bradycardic, regular Respiratory: No increased work of breathing, no retractions or nasal flaring. Abdomen/GI: Soft, nontender, no peritoneal signs Skin: Pale, no cyanosis, warm Neuro: Awake and alert, GCS 15 Vital Signs: 10:06 BP 135 / 67; Pulse 58; Resp 16; Temp 98; Pulse Ox 100% ; bp 10:52 BP 120 / 61; Pulse 58; Resp 16; Pulse Ox 100% on R/A; Pain 0/10; iw 13:23 BP 122 / 70; Pulse 46; Resp 17; Pulse Ox 100% ; jj7 14:50 BP 120 / 68; Pulse 48; Resp 17; Temp 98.1; Pulse Ox 100% ; Pain 0/10; jj7 10:52 Pain Scale: Adult iw 14:50 Pain Scale: Adult jj7 MDM: 10:07 Medical Screening Exam initiated rn 12:56 Differential Diagnosis: vasovagal episode, GI bleed, anemia, colon cancer, colon rn infection. Data reviewed: vital signs, nurses notes, lab test result(s), radiologic studies, CT scan, and as a result, I will admit patient. Consideration of Admission/Observation Patient was admitted/placed on observation. Escalation of care including admission/observation considered. Counseling: I had a detailed discussion with the patient and/or guardian regarding the historical points, exam findings, and any diagnostic results supporting the discharge/admit diagnosis, lab results, radiology results, the need for further work-up and treatment in the hospital. Response to treatment: the patient's symptoms have mildly improved after treatment. ED course: CT shows ascending colon mass and colitis. Checked with radiology here and they are not able to embolize. CT does not show active extravasation. Antibiotics ordered. Spoke with family and without interventional radiology here they prefer transfer because they are against colonoscopy for unclear reason.. 13:46 ED course: Accepted for transfer to [facility]. rn 04/29 10:15 Order name: CBC with Diff; Complete Time: 11:11 rn 04/29 10:15 Order name: CMP; Complete Time: 11:11 rn 04/29 10:15 Order name: Lipase; Complete Time: 11:11 rn 04/29 10:15 Order name: Protime (+inr); Complete Time: 11:11 rn 04/29 10:15 Order name: Ptt, Activated; Complete Time: 11:11 rn 04/29 10:15 Order name: Lactate w/ 2H reflex if indic.; Complete Time: 11:11 rn 04/29 11:44 Order name: Abdomen ; Complete Time: 12:14 EDMS 04/29 10:15 Order name: IV Saline Lock; Complete Time: 10:36 rn 04/29 10:15 Order name: Labs collected and sent; Complete Time: 10:36 rn Administered Medications: 11:25 Drug: Pantoprazole IVP 40 mg IVP once Route: IVP; Site: right antecubital; iw 14:06 Follow up: Response: Marked relief of symptoms jj7 11:25 Drug: Pantoprazole IV 8 mg/hr IV at 25 ml/hr continuous; (Standard dilution is 80 mg in iw 250 mL NS) Route: IV; Rate: 25 ml/hr; Site: right antecubital; 14:54 Follow up: IV Status: Infusion continued upon transfer jj7 13:30 Drug: Piperacillin-Tazobactam IVPB 3.375 grams IVPB once over 60 mins; (mix in NS 100 jj7 mL) Route: IVPB; Infused Over: 60 mins; Site: right antecubital; 14:06 Follow up: IV Status: Completed infusion jj7 Disposition Summary: 04/29/24 12:58 Transfer Ordered Notes: Transfer Location: [facility] rn Reason: Higher level of care rn Condition: Stable rn Problem: new rn Symptoms: have improved rn Accepting Physician: (04/29/24 14:54) jj7 Diagnosis - GI Bleed/ Gastrointestinal hemorrhage, unspecified rn - Near syncope rn - Anemia, unspecified rn Forms: - Medication Reconciliation Form rn - SBAR form rn Signatures: Dispatcher [employer] EDMS Mouna Viveros RN RN iw Nieto, Roman, MD MD rn Peltier, Brian, RN RN bp Johnson, Juwairiyah, RN RN jj7 Corrections: (The following items were deleted from the chart) 11:44 10:18 Abdomen Angio ordered. EDMS EDMS 11:45 10:18 Pelvis Angio ordered. EDMS EDMS 14:54 12:58 Dr. dietz jj7
--- NOTE | 2024-04-29 12:58 | ER ---
Nurse's Notes [facility] Name: Isiah Lai Age: 73 yrs Sex: Male : 1950 Arrival Date: 04/29/2024 Time: 10:04 Bed 7 Private MD: Diagnosis: GI Bleed/ Gastrointestinal hemorrhage, unspecified;Near syncope;Anemia, unspecified Presentation: 04/29 10:06 Chief complaint: EMS states: VAGAL AFTER TWO LARGE MELENIC STOOLS. Coronavirus screen: bp At this time, the client does not indicate any symptoms associated with coronavirus-19. Ebola Screen: No symptoms or risks identified at this time. Initial Sepsis Screen: Does the patient meet any 2 criteria? No. Patient's initial sepsis screen is negative. Does the patient have a suspected source of infection? No. Patient's initial sepsis screen is negative. Risk Assessment: Do you want to hurt yourself or someone else? Patient reports no desire to harm self or others. Onset of symptoms was April 29, 2024 at 09:30. Care prior to arrival: IV initiated. 20 GA, in the right antecubital area, Glucose check: 164. 10:06 Method Of Arrival: EMS: [facility] bp 10:06 Acuity: DENISE 3 bp Triage Assessment: 10:08 General: Appears in no apparent distress. Behavior is calm, cooperative. Pain: Denies bp pain. EENT: No deficits noted. Neuro: Level of Consciousness is awake, obeys commands, Oriented to Appropriate for age Reports a syncopal episode. Cardiovascular: Rhythm is sinus bradycardia. Respiratory: No deficits noted. GI: No signs and/or symptoms were reported involving the gastrointestinal system. : No signs and/or symptoms were reported regarding the genitourinary system. Derm: No deficits noted. Musculoskeletal: No deficits noted. Injury Description: LEFT FA SKIN TEAR. Historical: - Allergies: 10:08 No Known Allergies; bp - Home Meds: 10:36 levothyroxine 75 mcg tablet daily [Active]; folic acid 1 mg oral tablet daily [Active]; iw lisinopril 40 mg oral tablet daily [Active]; clopidogrel 75 mg Oral tablet daily [Active]; tamsulosin 0.4 mg oral capsule daily [Active]; memantine 28 mg oral Capsule, Sprinkle Ext Rel 24hr Dose Pack every 24 hours [Active]; Jardiance 25 mg Oral tablet daily [Active]; glimepiride 1 mg oral tablet daily [Active]; finasteride 5 mg oral tablet daily [Active]; donepezil 10 mg oral tablet every day at bedtime [Active]; carvedilol 6.25 mg oral tablet 2 times per day [Active]; quetiapine 25 mg oral tablet once at bedtime [Active]; mirtazapine 15 mg Oral tablet every day at bedtime [Active]; Prolia 60 mg/mL subcutaneous Syringe every 6 months [Active]; - PMHx: 10:08 CVA; Dementia; Diabetes - NIDDM; Hypertension; Hypothyroidism; bp - Immunization history:: Adult Immunizations up to date. - Infectious Disease History:: Denies. - Social history:: Smoking status: Patient denies any tobacco usage or history of. - Family history:: not pertinent. - Hospitalizations: : No recent hospitalization is reported. Screenin:10 [facility] ED Fall Risk Assessment (Adult) History of falling in the last 3 months, bp including since admission Yes- physiologic fall (2 pts) Confusion or Disorientation No (0 pts) Intoxicated or Sedated No (0 pts) Impaired Gait No (0 pts) Mobility Assist Device Used No (0 pt) Altered Elimination No (0 pt) Score/Fall Risk Level 0 - 2 = Low Risk Oriented to surroundings. Abuse screen: Denies threats or abuse. Denies injuries from another. Nutritional screening: No deficits noted. Tuberculosis screening: No symptoms or risk factors identified. Assessment: 10:10 General: SEE TRIAGE NOTE. Neuro: Level of Consciousness is awake, obeys commands, bp Oriented to Appropriate for age. Cardiovascular: Rhythm is sinus bradycardia. 10:53 Reassessment: Patient appears in no apparent distress at this time. Patient and/or iw family updated on plan of care and expected duration. Pain level reassessed. Patient is alert, oriented x 3, equal unlabored respirations, skin warm/dry/pink. 11:34 Reassessment: Patient appears in no apparent distress at this time. Patient and/or iw family updated on plan of care and expected duration. Pain level reassessed. pt cleaned, linens changed, brief applied, socks given, repositioned in bed. 13:15 Reassessment: Patient is alert, oriented x 3, equal unlabored respirations, skin jj7 warm/dry/pink. ASSUMED CARE OF PT. PT LYING IN BED. NO PAIN OR DISTRESS. V STABLE. FAMILY AT BEDSIDE CALL LANDRY IN REACH. IV MEDS STILL INFUSING. 14:15 Reassessment: REPORT GIVEN TO CLAIRE JOHNSON AT [facility]. jj7 Vital Signs: 10:06 BP 135 / 67; Pulse 58; Resp 16; Temp 98; Pulse Ox 100% ; bp 10:52 BP 120 / 61; Pulse 58; Resp 16; Pulse Ox 100% on R/A; Pain 0/10; iw 13:23 BP 122 / 70; Pulse 46; Resp 17; Pulse Ox 100% ; jj7 14:50 BP 120 / 68; Pulse 48; Resp 17; Temp 98.1; Pulse Ox 100% ; Pain 0/10; jj7 10:52 Pain Scale: Adult iw 14:50 Pain Scale: Adult jj7 ED Course: 10:06 Patient arrived in ED. bp 10:07 Judson Burden MD is Attending Physician. rn 10:08 Triage completed. bp 10:08 Arm band placed on. bp 10:10 Patient has correct armband on for positive identification. bp 10:10 Maintain EMS IV. Dressing intact. Good blood return noted. Site clean \T\ dry. Gauge \T\ bp site: 20 GA RAC. Flushed with 10 mL NS. 10:20 Mouna Viveros, RN is Primary Nurse. iw 10:36 Initial lab(s) drawn, by me, sent to lab. iw 12:05 Abdomen In Process Unspecified. EDMS 13:14 initiated a transfer with Nelli Johnson from the [facility]. eb 13:[address] Shirley the hospitalist lead electrical controls engineer for [facility] with Dr. Burden for eb patient transfer consultation. 13:52 administrative approval given by Nelli Rucker Rn, patient has been accepted to [facility] room 1623/ Dr. Cyndi Shirley has accepted the patient in transfer/ report to be called to [phone]. 14:51 No provider procedures requiring assistance completed. Patient transferred, IV remains jj7 in place. 14:52 Provided Education on: TRANSFER. Warm blanket given. Cleaned of incontinence. jj7 Administered Medications: 11:25 Drug: Pantoprazole IVP 40 mg IVP once Route: IVP; Site: right antecubital; iw 14:06 Follow up: Response: Marked relief of symptoms j 11:25 Drug: Pantoprazole IV 8 mg/hr IV at 25 ml/hr continuous; (Standard dilution is 80 mg in iw 250 mL NS) Route: IV; Rate: 25 ml/hr; Site: right antecubital; 14:54 Follow up: IV Status: Infusion continued upon transfer jj7 13:30 Drug: Piperacillin-Tazobactam IVPB 3.375 grams IVPB once over 60 mins; (mix in NS 100 jj7 mL) Route: IVPB; Infused Over: 60 mins; Site: right antecubital; 14:06 Follow up: IV Status: Completed infusion Medication: 10:36 VIS not applicable for this client. Outcome: 12:58 ER care complete, transfer ordered by . rn 14:51 Transferred by ground EMS [facility]. j7 14:51 Condition: improved 14:54 Patient left the ED. jj7 Signatures: Dispatcher [employer] EDMS Monua Viveros, RN RN Judson Rdz MD MD rn Peltier, Brian, RN RN bp Botello, Elizabeth eb Johnson, Juwairiyah, RN RN jj7
[2024-04-29] MEDS ORDERED: PIPERACIL/TAZO 3.375 GM VIAL IV ONE (13:03)
[2024-04-29] MEDS ORDERED: NA CHLORIDE 0.9% 100 ML ONE (13:03)
[2024-04-29 15:05] VITALS: O2SAT 100
[2024-04-29 15:10] VITALS: BP 120/68; TEMP 98.1
== END 2024-04-29 14:54 | disposition short-term general hospital (02) ==
LOC: ER 10:04
DX: D64.9 Anemia, unspecified (principal); R55 Syncope and collapse; E11.9 Type 2 diabetes mellitus without complications; I10 Essential (primary) hypertension; Z86.73 Personal history of transient ischemic attack (TIA), and cerebral infarction without residual deficits
CPT/HCPCS: 96365; 85025; 36415; 85610; 83605; 85730; 83690; 80053; 74178; 99285; 96366; Q9967; J2543; J2470; J7050